=== PATIENT | female | born 1945 | race Caucasian/White ===

== ENCOUNTER 2020-05-29 20:43 | Inpatient (IN) | payer MEDICARE, SELFPAY ==
[2020-05-29 20:51] VITALS: BP 153/99; PULSE 100; RESP 20; O2SAT 97; BMI 31.3
--- NOTE | 2020-05-29 23:03 | CTR_ITS ---
PROCEDURE INFORMATION: Exam: CT Head Without Contrast Exam date and time: 05/29/2020 11:17 PM Age: 75 years old Clinical indication: Altered mental status/memory loss; Additional info: AMS TECHNIQUE: Imaging protocol: Computed tomography of the head without contrast. Radiation optimization: All CT scans at this facility use at least one of these dose optimization techniques: automated exposure control; mA and/or kV adjustment per patient size (includes targeted exams where dose is matched to clinical indication); or iterative reconstruction. COMPARISON: No relevant prior studies available. RADIATION DOSE METRICS: Total DLP (mGy-cm): 2004.07 FINDINGS: Brain: Chronic left occipital infarct. No midline shift, mass, fluid collection, or evidence of acute hemorrhage. Cerebral ventricles: No ventriculomegaly. Bones/joints: Unremarkable. No acute fracture. Paranasal sinuses: Visualized sinuses are unremarkable. No fluid levels. Mastoid air cells: Visualized mastoid air cells are well aerated. Soft tissues: Unremarkable. CT/CT head wo con* [id number] IMPRESSION: Chronic left occipital infarct. Radiation Dose CTDIVOL = (mGy): DLP = 2004.07 (mGy-cm)
--- NOTE | 2020-05-29 23:03 | XR_ITS ---
WS: [id number] RIGHT HIP HISTORY: pain COMPARISON: CT 05/30/2020 pelvis. Right hip: No fracture is identified. Severe loss of the normal joint space with osteophytic ridging. Subchondral cystic changes and sclerosis along both sides of the joint line. Hypertrophic bone forma tion at the greater trochanter. No fracture identified. Mild SI joint narrowing. XR/XR hip RT 2-3V wo/w pel* [id number] IMPRESSION: 1. No RIGHT hip fracture identified. Pelvis CT performed on the same day was a lso reviewed and no fracture is evident by CT of the pelvis. If concern for hip fracture persists consider dedicated RIGHT hip CT. 2. Severe RIGHT hip joint osteoarthritis.
--- NOTE | 2020-05-29 23:03 | XR_ITS ---
WS: [id number] PORTABLE CHEST HISTORY: ams COMPARISON: None available. Scattered mild pulmonary opacifications throughout both lungs probably due to small amount of fluid o verload. No pleural effusion or pneumothorax. Cardiac size: Mildly enlarged cardiac silhouette. Mediastinum/Aorta: Mild atherosclerosis aorta. No osseous abnormality seen. XR/XR chest 1V portable [id number] IMPRESSION: Mild interstitial edema and fluid overload.
--- NOTE | 2020-05-29 23:04 | ECG_ITS ---
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
--- NOTE | 2020-05-29 23:26 | CTR_ITS ---
PROCEDURE INFORMATION: Exam: CT Abdomen And Pelvis With Contrast Exam date and time: 05/29/2020 11:32 PM Age: 75 years old Clinical indication: Pain; Other: Hip; Additional info: Hip pain TECHNIQUE: Imaging protocol: Computed tomography of the abdomen and pelvis with contrast. Radiation optimization: All CT scans at this facility use at least one of these dose optimization techniques: automated exposure control; mA and/or kV adjustment per patient size (includes targeted exams where dose is matched to clinical indication); or iterative reconstruction. Contrast material: VISI 320; Contrast volume: 75 ml; Contrast route: INTRAVENOUS (IV); COMPARISON: CR XR hip RT 2-3V wo/w pel* [id number] 05/29/2020 11:13 PM RADIATION DOSE METRICS: Total DLP (mGy-cm): 1197.29 FINDINGS: Lungs: There is ill-defined opacity in the left lower lobe. Mediastinal space: There is a small sliding-type hiatal hernia. Liver: The liver is normal. Gallbladder and bile ducts: The gallbladder is absent. There is no intrahepatic or extrahepatic bile duct dilation. Pancreas: The pancreas is unremarkable. Spleen: The spleen is unremarkable. Adrenal glands: Intermediate density 15 mm left adrenal nodule. Kidneys and ureters: There is moderate atrophy of both kidneys. There is multifocal upper pole cortical scarring bilaterally. No hydronephrosis. Nonobstructive stone in the right renal collecting system. Ureters are normal. 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 The small bowel is nondilated. There is mild sigmoid colonic diverticulosis without evidence of diverticulitis. Appendix: The appendix is normal. Intraperitoneal space: There is no free air or significant intraperitoneal free fluid. Vasculature: There is moderate aortic atherosclerotic disease. The portal, splenic and superior mesenteric veins are patent. Lymph nodes: There is no lymphadenopathy in the retroperitoneum, mesentery, pelvis or inguinal regions. Urinary bladder: The urinary bladder is unremarkable. Reproductive: The uterus is unremarkable. There is no adnexal mass or large cyst. Bones/joints: There is severe degenerative disease at the right hip. Proximal femora are intact. The bony pelvis is intact. There is moderate degenerative disease in the lumbar spine. Soft tissues: The abdominal wall is intact. CT/CT abdomen pelvis w con* [id number] IMPRESSION: 1. No acute intra-abdominal findings. 2. Severe degenerative disease at the right hip. 3. Ill-defined opacity in the left lower lobe. Atelectasis versus infection. 4. 15 mm left adrenal nodule. Consider 12 month follow-up adrenal CT. (Dylan Brown, ACR White Paper, 2017) 5. Incidental findings above. Radiation Dose CTDIVOL = (mGy): DLP = 1197.29 (mGy-cm)
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
[2020-05-29 23:43] VITALS: RESP 16; O2SAT 92
[2020-05-29] MEDS: ondansetron 2 mg/ML SDV 2 mL 4 MG IVP (23:43)
[2020-05-29] MEDS: morphine 4 mg/mL SDV 1 mL IVP (23:43)
[2020-05-29] MEDS: LORazepam 2 mg/mL INJ 1 mL 1 MG IVP (23:43)
[2020-05-29 23:44] LABS: Basophils % 0.4 %; Eosinophils % 0.2 %; Hematocrit 45.6 % (37.0-47.0); Hemoglobin 15.1 g/dL (11.5-15.3); Lymphocytes % 21.2 %; Mean Corpuscular HGB Conc 33.1 g/dL (30.0-36.0); Mean Corpuscular Hemoglobin 29.7 pg (28.0-34.0); Mean Corpuscular Volume 89.6 fL (81-99); Mean Platelet Volume 13.1 fL (7.4-10.4); Monocytes # 0.6 10^3/uL (0.2-0.9); Monocytes % 12.3 %; Neutrophils # 3.04 10^3/uL (1.8-7.7); Neutrophils % 65.7 %; Nucleated Red Blood Cells % 0 %; Platelet Count 104 10^3/cmm (130-400); Red Blood Count 5.09 10^6/uL (4.1-5.3); Red Cell Distribution Width 12.6 % (12.1-15.1); White Blood Count 4.6 10^3/uL (4.0-10.0)
[2020-05-29] MEDS: sodium chloride 0.9% 1,000 ML 999 ML IV (23:45)
[2020-05-29 23:55] LABS: INR 1.04 (0.8-1.2)
[2020-05-30] VITALS (16 sets, daily range): BP systolic 99–166; BP diastolic 56–110; PULSE 70–110; RESP 16–26; TEMP 36.7–39; O2SAT 93–98
[2020-05-30] LABS: Alanine Aminotransferase 27 U/L (0-33); Albumin Level 3.8 g/dL (3.5-5.2); Alkaline Phosphatase 109 IU/L (35-105); Blood Urea Nitrogen 30 mg/dL (8-23); Calcium 9.5 mg/dL (8.5-10.5); Carbon Dioxide 23 mmol/L (22-29); Chloride 102 mmol/L (98-107); Globulin 3.4 g/dL (1.3-4.6); Glucose 259 mg/dL (65-115); Lipase 32 U/L (13-60); Osmolality Calculated 295 mOsm/kg (285-295); Sodium 135 mmol/L (136-145); Total Bilirubin 0.4 mg/dL (0.15-1.2); Total Protein 7.2 g/dL (6.6-8.7)
[2020-05-30 00:01] LABS: Anion Gap 14.8 (5-19); Aspartate Amino Transferase 29 U/L (0-32); Potassium 4.8 mmol/L (3.5-5.1)
[2020-05-30 00:16] LABS: Slide Review Slide Review Perform
[2020-05-30] MEDS: iodixanol 320 mg/mL 100mL Btl IV ×2 (00:41→00:47)
[2020-05-30] MEDS: LORazepam 2 mg/mL INJ 1 mL 1 MG IVP ×2 (00:41→02:41)
[2020-05-30 02:38] LABS: Add Urine Culture? Yes; Add Urine Microscopic? YES; Bacteria Urine 3+ /hpf; Bilirubin Urine Neg (Negative); Blood Urine 3+ (Negative); Glucose Urine UA 2+ (Normal); Ketones Urine Negative (Negative); Leukocyte Esterase Urine Trace (Negative); Nitrate Urine Negative (Negative); Protein Urine Trace (Negative); Specific Gravity, Urine 1.015 (1.005-1.030); Squamous Epithelial Cell Urine 0-4 /hpf (0-5); Urine Appearance Clear (CLEAR); Urine Color Yellow (Yellow); Urobilinogen Urine Norm (Negative); WBC Urine 25-40 /hpf (0-5); pH Urine 5 (5-7)
--- NOTE | 2020-05-30 03:12 | PM.HP ---
Providers/Chief Complaint Admitting Physician: Luciano Driscoll MD Chief Complaint: leg pain and anxiety History of Present Illness Farnaz Beverly is a 75 year old female who presented today with chief complaint of altered mental status. Her daughter checked on her around 3 PM today and she was normal at that time however at 7 PM she started behaving abnormally. She was aggressive, very irritable and confused. EMS was called, they did not notice any neurological deficits however patient kept refusing coming to the hospital she was very combative. When she arrived in the ER she was irritable and aggressive and kept complaining of hip pain. CT head showed occipital infarct however CT head and neck revealed right vertebral V1 occlusion, findings were discussed with neurologist at [facility] by ER physician he was not a TPA candidate because of timeline, she has abnormal UA she received Zosyn in the ER for UTI. At the time of my evaluation patient was not cooperative she kept crying stating she is hurting everywhere. Review of Systems General: Reports: ROS unobtainable due to medical condition (Hypoactive delirium due to UTI and possibly subacute stroke) PFSH Acute PFSH: Medical History (Updated 05/30/20 @ 03:36 by Luciano Driscoll MD) Arthritic gait Hip arthritis Diabetes Hypertension Surgical History (Updated 05/30/20 @ 03:36 by Luciano Driscoll MD) Surgical history unknown Family History (Updated 05/30/20 @ 03:36 by Luciano Driscoll MD) Other No pertinent family history Social History (Updated 05/30/20 @ 03:36 by Luciano Driscoll MD) Smoking and tobacco status: unknown if ever smoked Alcohol intake: never Substance/Drug Use: never Lives independently: Yes Vitals/I&O/Wt Last Vital Signs Pulse 110 H 05/30/20 02:22 Resp 18 05/30/20 02:22 BP 166/110 05/30/20 02:22 Pulse Ox 97 05/30/20 02:22 05/29/20 05/29/20 05/30/20 14:59 22:59 06:59 Intake Total 1000 / 1000 Balance 1000 / 1000 Weight last 48 hrs Weight 90.718 kg Physical Exam Narrative: EXAM NARRATIVE: elderly female who is irritable and aggressive She cries every time I ask her a question and states she hurts everywhere She keeps her eyes closed Did not cooperate for interview S1, S2 no murmur appreciated Clinically it is hard to assess her volume status because of obesity however no lower extremity edema noted Upper airway resonating to her her anterior chest bilateral breath sounds with rhonchi Abdomen distended, nontender Blake catheter draining concentrated urine Neuro exam limited, questionable left-sided facial droop, patient would not follow any commands to calculate NIH score Urinary Catheter Management^: Blake: Cath Placed During This Visit: yes Urinary Catheter Date of Insertion: 05/30/20 Data : 05/29/20 23:40 05/29/20 23:40 A&P Assessment and plan (1) Altered mental status: Status: Acute Qualifiers: Altered mental status type: unspecified Qualified Code(s): R41.82 - Altered mental status, unspecified (2) Acute cystitis: Status: Acute (3) Occipital stroke: Status: Acute Additional A&P Information Altered mental status Secondary to cystitis and subacute stroke CT head showing occipital stroke and CTA head and neck consistent with right vertebral V1 occlusion Not a TPA candidate, not a candidate for intravascular intervention as well because of the timeline NIH difficult to calculate because of noncooperative state of the patient I will start her on aspirin and Plavix along atorvastatin Currently reevaluate in the morning if MRI head is possible however at this point it seems a bit difficult because of her hyperactive delirium Hyperactive delirium due to UTI Abnormal UA continue ceftriaxone She received Zosyn in the ER Urine culture obtained No sepsis on admission, For agitation with use Haldol for as needed use Hypertension: Blood pressure 166/100 I would resume her hydrochlorothiazide and lisinopril and monitor blood pressure Type 2 diabetes: Hold Metformin keep her on insulin sliding scale Consistent carb diet Full code DVT prophylaxis Lovenox Attestations Medical Necessity Statement*: Anticipating discharge in less than 48 hours currently need cranial imaging/MRI for occipital stroke and antibiotics for UTI Time Spent in Patient Care: (>than 50% of time spent in counselling and/or direct pt care on unit). 30mins Coding Level of Care Code Acute Gang Mower Operator for Javierg Fwd Diagnoses Altered mental status R41.82 Altered mental status type: unspecified Acute cystitis N30.00 Occipital stroke I63.9
[2020-05-30] MEDS: cefTRIAXone 1,000 MG in sodium chloride 0.9% (plus) 50 ML 100 MG IV (03:18)
--- NOTE | 2020-05-30 04:18 | PC.NURSE ---
safety and occupational health manager requested due to pt attempting to pull at IV line and indwelling rashid catheter
[2020-05-30] MEDS: aspirin 300 mg Supp PR (04:26)
[2020-05-30] MEDS: enoxaparin 40 mg/0.4 mL Syringe SUBCUT (05:48)
[2020-05-30 06:35] LABS: Glucose Point of Care 260 mg/dL (70-110)
[2020-05-30] MEDS: aspirin 81 mg EC Tablet PO (08:17)
[2020-05-30] MEDS: clopidogrel 75 mg Tablet PO (08:17)
[2020-05-30] MEDS: hydroCHLOROthiazide 25 mg Tablet 12.5 MG PO (08:17)
[2020-05-30] MEDS: metoprolol tartrate 25 mg Tablet PO ×2 (08:17→21:35)
[2020-05-30] MEDS: lisinopril 10 mg Tablet PO (08:17)
--- NOTE | 2020-05-30 10:33 | PC.PHAR ---
-pt unable to verify medication-pts granddaughter eddie states the pt takes care of her own meds-pt brought in all medication bottles except for oxycodone 10mg 1 tab q4h prn ext med history shows last filled on 04/30/20 30d/s
[2020-05-30 11:23] LABS: Glucose Point of Care 217 mg/dL (70-110)
--- NOTE | 2020-05-30 13:44 | PC.CHAP ---
Pastoral Care Encounter/Spiritual Assessment Type of Contact [] Declined health care sanitary technician visit [] Patient/Family/Request visit [] Outpatient visit [] Follow-up visit [] Physician referral [] Code/Alert [] Routine visit [] Staff referral [] Actively dying [xx] Patient sleeping [] Family support [] [] Out of room [] Palliative care [] [] Receiving care in room [] Pre-surgical visit [] Trauma [] Long length of stay [] ICU visit [xx] Other: Patient sedated Relational/Emotional Strength [] Patient feels connected with others/family/visitors/staff [] Distress [] Loneliness/isolation [] Abandonment Spirituality of Patient [] Person of [place] [] Attends Pentecostalism of their [place] [] Believes in Prayer [] Reads Bible or Jewish materials [] There are Spiritual issues to be addressed Controls Project Engineer Interventions [] Prayer [] Active listening [] Non-anxious presence [] Spiritual/emotional support [] Crisis/trauma care [] Spiritual counseling [] Bereavement support [] Provided bereavement packet [] Provided Bible/devotional materials [] Provided toy/stuffed animal, coloring book to patient or family member [] Provided Communion [] Anointing/[place] [] Salvation [] Completed spiritual assessment [] Other: Impact on Illness or Injury [] Angry [] Fearful [] Anxious [] Often cries [] Exhaustion [] Unable to work [] Unable to attend episcopal [] Unable to walk/stand [] Unable to read [] Unable to drive [] Unable to eat/drink [] Unable to sleep [] Unable to be with family [] Patient intubated [] Other: Summary Patient was being constantly monitored. Prognosis unclear at time of visit. Follow up later. Time spent with patient 2 minutes
[2020-05-30] MEDS: morphine 4 mg/mL SDV 1 mL 2 MG IVP ×2 (15:08→22:31)
--- NOTE | 2020-05-30 16:40 | PM.PN ---
Subjective Subjective: Interval history: 75 year old with past medical history of hypertension, diabetes, neuropathy, arthritis with chronic back pain who presented to the ER with altered mental status. Upon arrival to ER patients initial work up showed a WBC of 4.6, hemoglobin of 15.1, hematocrit of 45.6 and a platelet count of 104. Sodium 135, potassium 4.8, chloride 102, bicarb 23, BUN 30 and creatinine of 1.3. Glucose was elevated 217. AST of 29, ALT of 27 and alkaline phosphatase of 109. Urinalysis showed trace leukocyte esterase, negative nitrites, 25 to 40 wbc's and 3+ bacteria. Multiple imaging studies included a chest x-ray which showed mild interstitial edema with fluid overload. Head CT without contrast showed chronic left occipital infarct. 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 Widely patent carotid arteries. CT abd/pelvis also done which showed no acute intra-abdominal findings however ill defined opacities in the left lower lobe suspicious for atelectasis vs infection. Hip/pelvic X-ray showed no right hip fracture, however severe right hip joint osteoarthritis. Vitals showed a temp of 102.2 on arrival. She was suspected to have a urinary tract infection plus minus pneumonia which was less likely. She was given 1L bolus, Aspirin 325mg PO x1, Ceftriaxone 1gIV x1, Lorazepam 1 mg IV x 2, morphine 4mg IV x1, Dilaudid 1 mg IV x1 and hydralazine 5 mg IV x1. Since admission patient has been confused at times wanting to get out of beds. For the most part has been sleepy however does wake up and complain of back pain. She was given morphine however stated this did not help wanting her oxycodone. Knows she is in a hospital however does not remember how she arrived or why. Baseline mental status is unclear. Medications: Reviewed: Yes Vitals/I&O/Wt Last Vital Signs Temp 100.6 F H 05/30/20 15:25 Pulse 84 05/30/20 15:25 Resp 18 05/30/20 15:25 BP 126/78 05/30/20 15:25 Pulse Ox 94 05/30/20 15:25 05/30/20 05/30/20 05/30/20 06:59 14:59 22:59 Intake Total 1050 / 1050 Balance 1050 / 1050 Weight last 48 hrs Weight 90.718 kg Physical Exam Narrative: EXAM NARRATIVE: elderly female who is irritable and aggressive Confused. oriented to person only bedside sitter S1, S2 no murmur appreciated Non-labored respiration Abdomen - ND/NT Blake catheter in place Neuro exam - difficult to asses s Urinary Catheter Management^: Blake: Cath Placed During This Visit: yes Reason for Continuing Indwelling Catheter: Other Urinary Catheter Date of Insertion: 05/30/20 Data : 05/29/20 23:40 05/29/20 23:40 Micro: Microbiology 05/30/20 07:28 Blood Culture - Preliminary Blood SPECIMEN COLLECTED 05/30/20 07:22 Blood Culture - Preliminary Blood SPECIMEN COLLECTED A&P Assessment and plan (1) Altered mental status: Status: Acute Qualifiers: Altered mental status type: unspecified Qualified Code(s): R41.82 - Altered mental status, unspecified (2) Acute cystitis: Status: Acute (3) Occipital stroke: Status: Acute Additional A&P Information Acute Encephalopathy - Baseline mental status unclear - Likely infectious - No clear evidence of cva, no complaint of visual deficits - Continue Neuro-checks however - Bed-side sitter - Fall precautions - Aspiration precautions Sepsis due to UTI possible pneuonia - Rocephin - increase to 2G IV daily - Follow up on culture - Tylenol prn for fever - Pro-usha in am Acute kidney injury - Cr - 1.3 - Baseline known - Renal dosing - Repeat BMP in am Chronic occipital infarct - Less likely acute - Wlll continue aspirin/statin - Also started on plavix - Unclear if failed asa - not noted on home meds - ECHO pending - CT head/CTA completed - Neuro-checks - ST/PT/OT eval Hypertension - Stable on current regimen DM - Sliding scale insulin - Check A1c Chronic back pain / opiods use - Oxycodone resumed - Try to avoid oversedation DVT prophylaxis Lovenox Attestations Medical Necessity Statement*: Will require further hospitalization for management of altered mental status, sepsis, UTI. Coding Level of Care Code Acute Food And Beverage Coordinator for Carmen Fwd Diagnoses Altered mental status R41.82 Altered mental status type: unspecified Acute cystitis N30.00 Occipital stroke I63.9
[2020-05-30] MEDS: oxyCODONE 5 mg IR Tab/Cap 10 MG PO ×2 (17:25→21:34)
[2020-05-30] MEDS: famotidine 20 mg Tablet PO (17:25)
[2020-05-30 17:36] LABS: Glucose Point of Care 313 mg/dL (70-110)
--- NOTE | 2020-05-30 18:21 | PC.NURSE ---
Patient had Oxycodone in her purse, along with all other home meds in a bag. All home meds taken the the med room Oxycodone was counted with Timbo Gamino RN and put in the pyxis.
[2020-05-30 20:24] LABS: Glucose Point of Care 205 mg/dL (70-110)
[2020-05-30] MEDS: atorvastatin 40 mg Tablet PO (21:35)
[2020-05-31] VITALS (13 sets, daily range): BP systolic 109–142; BP diastolic 67–84; PULSE 78–99; RESP 16–20; TEMP 37.1–38.5; O2SAT 90–96
[2020-05-31] MEDS: cefTRIAXone 1,000 MG in sodium chloride 0.9% (plus) 50 ML 100 MG IV (02:07)
[2020-05-31] MEDS: oxyCODONE 5 mg IR Tab/Cap 10 MG PO ×3 (02:09→20:21)
[2020-05-31] MEDS: enoxaparin 40 mg/0.4 mL Syringe SUBCUT (04:04)
[2020-05-31 06:23] LABS: Basophils % 0.3 %; Eosinophils % 0.3 %; Hematocrit 41.1 % (37.0-47.0); Hemoglobin 13.5 g/dL (11.5-15.3); Lymphocytes # 1.7 10^3/uL (0.8-4.8); Lymphocytes % 46.9 %; Mean Corpuscular HGB Conc 32.8 g/dL (30.0-36.0); Mean Corpuscular Hemoglobin 29.7 pg (28.0-34.0); Mean Corpuscular Volume 90.5 fL (81-99); Mean Platelet Volume 13.1 fL (7.4-10.4); Monocytes # 0.3 10^3/uL (0.2-0.9); Monocytes % 8.9 %; Neutrophils # 1.56 10^3/uL (1.8-7.7); Neutrophils % 43.3 %; Nucleated Red Blood Cells % 0 %; Platelet Count 91 10^3/cmm (130-400); Red Blood Count 4.54 10^6/uL (4.1-5.3); Red Cell Distribution Width 12.7 % (12.1-15.1); White Blood Count 3.6 10^3/uL (4.0-10.0)
[2020-05-31 06:39] LABS: Glucose Point of Care 152 mg/dL (70-110)
[2020-05-31 07:48] LABS: Procalcitonin 0.55 ng/mL (0-0.5)
[2020-05-31 07:59] LABS: Alanine Aminotransferase 20 U/L (0-33); Alkaline Phosphatase 80 IU/L (35-105); Anion Gap 15.2 (5-19); Aspartate Amino Transferase 29 U/L (0-32); Blood Urea Nitrogen 29 mg/dL (8-23); Calcium 8.6 mg/dL (8.5-10.5); Carbon Dioxide 22 mmol/L (22-29); Chloride 104 mmol/L (98-107); Globulin 2.7 g/dL (1.3-4.6); Glucose 145 mg/dL (65-115); Magnesium 1.9 mg/dL (1.7-2.3); Osmolality Calculated 292 mOsm/kg (285-295); Potassium 4.2 mmol/L (3.5-5.1); Sodium 137 mmol/L (136-145); Total Bilirubin 0.4 mg/dL (0.15-1.2); Total Protein 5.7 g/dL (6.6-8.7)
[2020-05-31 08:58] LABS: Slide Review Slide Review Perform
[2020-05-31 09:41] LABS: Estmated Average Glucose 166; Hemoglobin A1C 7.4 % (4.0-6.0)
[2020-05-31] MEDS: morphine 4 mg/mL SDV 1 mL 2 MG IVP ×2 (09:51→14:09)
[2020-05-31] MEDS: clopidogrel 75 mg Tablet PO (09:56)
[2020-05-31] MEDS: hydroCHLOROthiazide 25 mg Tablet 12.5 MG PO (09:57)
[2020-05-31] MEDS: aspirin 81 mg EC Tablet PO (09:57)
[2020-05-31] MEDS: lisinopril 10 mg Tablet PO (09:57)
[2020-05-31] MEDS: famotidine 20 mg Tablet PO ×2 (09:57→19:49)
[2020-05-31] MEDS: metoprolol tartrate 25 mg Tablet PO ×2 (09:57→20:22)
--- NOTE | 2020-05-31 10:46 | PC.PT ---
PT eval attempted. Patient unable to actively participate at this time. Screams with movement. Will monitor and attempt tomorrow.
[2020-05-31 10:57] LABS: Glucose Point of Care 182 mg/dL (70-110)
[2020-05-31] MEDS: acetaminophen 325 mg Tablet 650 MG PO (14:06)
--- NOTE | 2020-05-31 16:00 | PM.PN ---
Subjective Subjective: Interval history: 75 year old with past medical history of hypertension, diabetes, neuropathy, arthritis with chronic back pain who presented to the ER with altered mental status. Upon arrival to ER patients initial work up showed a WBC of 4.6, hemoglobin of 15.1, hematocrit of 45.6 and a platelet count of 104. Sodium 135, potassium 4.8, chloride 102, bicarb 23, BUN 30 and creatinine of 1.3. Glucose was elevated 217. AST of 29, ALT of 27 and alkaline phosphatase of 109. Urinalysis showed trace leukocyte esterase, negative nitrites, 25 to 40 wbc's and 3+ bacteria. Multiple imaging studies included a chest x-ray which showed mild interstitial edema with fluid overload. Head CT without contrast showed chronic left occipital infarct. 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 Widely patent carotid arteries. CT abd/pelvis also done which showed no acute intra-abdominal findings however ill defined opacities in the left lower lobe suspicious for atelectasis vs infection. Hip/pelvic X-ray showed no right hip fracture, however severe right hip joint osteoarthritis. Vitals showed a temp of 102.2 on arrival. She was suspected to have a urinary tract infection plus minus pneumonia which was less likely. She was given 1L bolus, Aspirin 325mg PO x1, Ceftriaxone 1gIV x1, Lorazepam 1 mg IV x 2, morphine 4mg IV x1, Dilaudid 1 mg IV x1 and hydralazine 5 mg IV x1. Since admission patient has been confused at times wanting to get out of beds. For the most part has been sleepy however does wake up and complain of back pain. She was given morphine however stated this did not help wanting her oxycodone. Knows she is in a hospital however does not remember how she arrived or why. Baseline mental status is unclear. 05/31/2020 Continues to be very confused and agitated. Complaining of back pain. Continues to have fevers. Medications: Reviewed: Yes Vitals/I&O/Wt Last Vital Signs Temp 99.4 F 05/31/20 15:26 Pulse 99 05/31/20 15:26 Resp 18 05/31/20 15:26 BP 109/67 05/31/20 15:26 Pulse Ox 92 05/31/20 15:26 05/31/20 05/31/20 05/31/20 06:59 14:59 22:59 Intake Total 550 / 790 Output Total 1000 / 1000 500 / 500 Balance -450 / -210 -500 / -500 Weight last 48 hrs Weight 90.718 kg Physical Exam Narrative: EXAM NARRATIVE: elderly female who is irritable and aggressive Confused. oriented to person only bedside sitter S1, S2 no murmur appreciated Non-labored respiration Abdomen - ND/NT Blake catheter in place Neuro exam - difficult to asses s Urinary Catheter Management^: Blake: Cath Placed During This Visit: yes Reason for Continuing Indwelling Catheter: Acute Urinary Retention or Obstruction Urinary Catheter Date of Insertion: 05/30/20 Data : 05/31/20 05:49 05/31/20 05:54 Micro: Microbiology 05/30/20 02:00 Urine Culture - Preliminary Urine,Clean Catch Gram Negative Rods 05/30/20 07:28 Blood Culture - Preliminary Blood NEGATIVE TO DATE 05/30/20 07:22 Blood Culture - Preliminary Blood NEGATIVE TO DATE A&P Assessment and plan (1) Altered mental status: Status: Acute Qualifiers: Altered mental status type: unspecified Qualified Code(s): R41.82 - Altered mental status, unspecified (2) Acute cystitis: Status: Acute (3) Occipital stroke: Status: Acute Additional A&P Information Acute Encephalopathy - Baseline mental status unclear - Likely infectious - No clear evidence of cva, no complaint of visual deficits - Continue Neuro-checks however - Bed-side sitter - Fall precautions - Aspiration precautions Sepsis due to UTI possible pneumonia - Persistent Fever Tmax 101 - Will broaden coverage - Vancomycin/Zosyn added - Follow up on culture - Ecoli in UA - Based on lung findngs - will r/o covid- check ag - Droplet precautions unitl r/o - Tylenol prn for fever - Pro-usha -0.59 Acute kidney injury - Cr - 1.3 - 1.3 - Baseline known - Renal dosing - Repeat BMP in am Chronic occipital infarct - Less likely acute - Wlll continue aspirin/statin - Also started on plavix - Unclear if failed asa - not noted on home meds - ECHO pending - CT head/CTA completed - Neuro-checks - ST/PT/OT eval Hypertension - Stable on current regimen DM - Sliding scale insulin - Check A1c Chronic back pain / opiods use - Oxycodone resumed - Try to avoid oversedation DVT prophylaxis Lovenox Attestations Medical Necessity Statement*: Continue hospitalization for management of infection requiring IV antibiotics Time Spent in Patient Care: Greater than 35 minutes (>than 50% of time spent in counselling and/or direct pt care on unit). Coding Level of Care Code Acute Insurance Policy Issue Clerk for Carmen Spicer Diagnoses Altered mental status R41.82 Altered mental status type: unspecified Acute cystitis N30.00 Occipital stroke I63.9
[2020-05-31] MEDS: vancomycin 1,500 MG/300 ML PIGGYBACK 200 MG IV (16:57)
[2020-05-31 17:05] LABS: Glucose Point of Care 186 mg/dL (70-110)
[2020-05-31 18:24] LABS: SARS Covid-2 Antigen Positive (Negative)
[2020-05-31] MEDS: piperacillin-tazobactam 3.375 GM in sodium chloride 0.9% (plus) 50 ML IV (19:48)
--- NOTE | 2020-05-31 20:12 | PC.NURSE ---
Called pt's granddaughter, Lupe, to notify her that pt is covid positive. Information regarding quarantine given and understanding verbalized.
[2020-05-31] MEDS: atorvastatin 40 mg Tablet PO (20:22)
[2020-05-31 20:35] LABS: Glucose Point of Care 191 mg/dL (70-110)
[2020-06-01] VITALS (9 sets, daily range): BP systolic 110–139; BP diastolic 68–82; PULSE 79–110; RESP 18; TEMP 36.3–37.3; O2SAT 91–94
[2020-06-01] MEDS: piperacillin-tazobactam 3.375 GM in sodium chloride 0.9% (plus) 50 ML IV ×3 (01:23→17:49)
[2020-06-01] MEDS: enoxaparin 40 mg/0.4 mL Syringe SUBCUT (04:57)
[2020-06-01 06:24] LABS: Glucose Point of Care 229 mg/dL (70-110)
[2020-06-01 06:55] LABS: Basophils % 0.3 %; Eosinophils % 0.3 %; Hematocrit 41.7 % (37.0-47.0); Hemoglobin 13.7 g/dL (11.5-15.3); Lymphocytes # 1.4 10^3/uL (0.8-4.8); Mean Corpuscular HGB Conc 32.9 g/dL (30.0-36.0); Mean Corpuscular Hemoglobin 29.2 pg (28.0-34.0); Mean Corpuscular Volume 88.9 fL (81-99); Mean Platelet Volume 13.5 fL (7.4-10.4); Monocytes # 0.4 10^3/uL (0.2-0.9); Monocytes % 10.4 %; Neutrophils # 1.73 10^3/uL (1.8-7.7); Nucleated Red Blood Cells % 0 %; Platelet Count 89 10^3/cmm (130-400); Red Blood Count 4.69 10^6/uL (4.1-5.3); Red Cell Distribution Width 12.8 % (12.1-15.1); White Blood Count 3.5 10^3/uL (4.0-10.0)
--- NOTE | 2020-06-01 07:00 | XRR_ITS ---
PROCEDURE INFORMATION: Exam: XR Chest Exam date and time: 06/01/2020 7:32 AM Age: 75 years old Clinical indication: Shortness of breath; Additional info: Respiratory failure TECHNIQUE: Imaging protocol: XR of the chest. Views: 1 view. COMPARISON: CR XR chest 1V portable [id number] 05/29/2020 11:13 PM FINDINGS: Lungs: There is patchy consolidation in the mid and inferior left lung. The right lung is clear. Pleural spaces: There is a small left pleural effusion. No pneumothorax. Heart/Mediastinum: Unremarkable. No cardiomegaly. Bones/joints: Unremarkable. XR/XR chest 1V portable [id number] IMPRESSION: There is a small left pleural effusion. There is patchy consolidation in the mid and inferior left lung consistent with atelectasis and/or pneumonia.
[2020-06-01 07:07] LABS: D Dimer 1.26 ug/mIFEU (0-0.59)
[2020-06-01 07:12] LABS: Lactate (Lactic Acid level) 1.4 mmol/L (0.5-2.2)
[2020-06-01 07:37] LABS: Alanine Aminotransferase 22 U/L (0-33); Albumin Level 3.1 g/dL (3.5-5.2); Alkaline Phosphatase 84 IU/L (35-105); Aspartate Amino Transferase 32 U/L (0-32); Blood Urea Nitrogen 31 mg/dL (8-23); C Reactive Protein 79.4 mg/L (0.0-4.9); Calcium 8.9 mg/dL (8.5-10.5); Carbon Dioxide 20 mmol/L (22-29); Chloride 102 mmol/L (98-107); Globulin 3.1 g/dL (1.3-4.6); Glucose 199 mg/dL (65-115); Magnesium 1.9 mg/dL (1.7-2.3); Osmolality Calculated 292 mOsm/kg (285-295); Sodium 135 mmol/L (136-145); Total Bilirubin 0.7 mg/dL (0.15-1.2); Total Protein 6.2 g/dL (6.6-8.7)
[2020-06-01 08:16] LABS: Ferritin 780 ng/mL (15-150)
[2020-06-01] MEDS: hydroCHLOROthiazide 25 mg Tablet 12.5 MG PO (08:33)
[2020-06-01] MEDS: famotidine 20 mg Tablet PO ×2 (08:34→17:50)
[2020-06-01] MEDS: metoprolol tartrate 25 mg Tablet PO ×2 (08:34→21:34)
[2020-06-01] MEDS: clopidogrel 75 mg Tablet PO (08:34)
[2020-06-01] MEDS: aspirin 81 mg EC Tablet PO (08:35)
[2020-06-01] MEDS: lisinopril 10 mg Tablet PO (08:35)
[2020-06-01 11:04] LABS: Glucose Point of Care 264 mg/dL (70-110)
[2020-06-01] MEDS: oxyCODONE 5 mg IR Tab/Cap 10 MG PO (11:05)
--- NOTE | 2020-06-01 13:50 | PM.PN ---
Subjective Subjective: Interval history: 75 year old with past medical history of hypertension, diabetes, neuropathy, arthritis with chronic back pain who presented to the ER with altered mental status. Upon arrival to ER patients initial work up showed a WBC of 4.6, hemoglobin of 15.1, hematocrit of 45.6 and a platelet count of 104. Sodium 135, potassium 4.8, chloride 102, bicarb 23, BUN 30 and creatinine of 1.3. Glucose was elevated 217. AST of 29, ALT of 27 and alkaline phosphatase of 109. Urinalysis showed trace leukocyte esterase, negative nitrites, 25 to 40 wbc's and 3+ bacteria. Multiple imaging studies included a chest x-ray which showed mild interstitial edema with fluid overload. Head CT without contrast showed chronic left occipital infarct. 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 Widely patent carotid arteries. CT abd/pelvis also done which showed no acute intra-abdominal findings however ill defined opacities in the left lower lobe suspicious for atelectasis vs infection. Hip/pelvic X-ray showed no right hip fracture, however severe right hip joint osteoarthritis. Vitals showed a temp of 102.2 on arrival. She was suspected to have a urinary tract infection plus minus pneumonia which was less likely. She was given 1L bolus, Aspirin 325mg PO x1, Ceftriaxone 1gIV x1, Lorazepam 1 mg IV x 2, morphine 4mg IV x1, Dilaudid 1 mg IV x1 and hydralazine 5 mg IV x1. Since admission patient has been confused at times wanting to get out of beds. For the most part has been sleepy however does wake up and complain of back pain. She was given morphine however stated this did not help wanting her oxycodone. Knows she is in a hospital however does not remember how she arrived or why. Baseline mental status is unclear. 05/31/2020 Continues to be very confused and agitated. Complaining of back pain. Continues to have fevers. 06/01/2020 Patient was more alert and active today however still very confused sitting in chair. No respiratory distress. Not requiring oxygen. Medications: Reviewed: Yes Vitals/I&O/Wt Last Vital Signs Temp 98.6 F 06/01/20 11:28 Pulse 106 H 06/01/20 11:28 Resp 18 06/01/20 11:28 BP 139/82 06/01/20 11:28 Pulse Ox 91 06/01/20 11:28 05/31/20 06/01/20 06/01/20 22:59 06:59 14:59 Intake Total 50 / 50 590 / 590 Output Total 400 / 900 Balance -350 / -850 590 / 590 Physical Exam Narrative: EXAM NARRATIVE: elderly female who is irritable and aggressive Confused. oriented to person only bedside sitter S1, S2 no murmur appreciated Non-labored respiration Abdomen - ND/NT Blake catheter in place Neuro exam - difficult to asses s Urinary Catheter Management^: Blake: Cath Placed During This Visit: yes Reason for Continuing Indwelling Catheter: Acute Urinary Retention or Obstruction Urinary Catheter Date of Insertion: 05/30/20 Data : 06/01/20 06:38 06/01/20 06:38 Micro: Microbiology 05/30/20 02:00 Urine Culture - Final Urine,Clean Catch Escherichia coli A&P Assessment and plan (1) Altered mental status: Status: Acute Qualifiers: Altered mental status type: unspecified Qualified Code(s): R41.82 - Altered mental status, unspecified (2) Acute cystitis: Status: Acute (3) Occipital stroke: Status: Acute (4) COVID-19 virus infection: Status: Acute Additional A&P Information Acute Encephalopathy - Baseline mental status unclear - Likely infectious - COVID - No clear evidence of acute cva, no complaint of visual deficits - Negin chronic occipital infarct - Continue Neuro-checks however - Fall precautions - Aspiration precautions - PT/OT/St on board. Sepsis due to COVID-19 infection plus UTI - Intermittent fevers. - Vancomycin/Zosyn added 05/31 - Urine culture - Ecoli in UA - Blood culture x2 - NGTD - COVID19 ag positive - No hypoxia noted - held remdesivir/decadron - Droplet precautions - Tylenol prn for fever - Pro-usha -0.59 - 0.55 - 0.50 - Ferritin 780 , CRP 79 - D-dimer 1.26- Will change ac to eliquis hold on CTA due to renal failure Thrombocytopenia - 104 - > 89 - Possible sepsis related - hold lovenox - on Eliquis - monitor for bleeding - Will use lower dose of eliquis Acute kidney injury - Cr - 1.3 - 1.3 - 1.4 - Baseline known - Renal dosing - Repeat BMP in am Chronic occipital infarct - Less likely acute - ASA/plavix - will hold - due to worsening plt - Unclear if failed asa - not noted on home meds - ECHO pending - CT head/CTA completed - Neuro-checks - Lipid panel - statin - ST/PT/OT eval Hypertension - Stable on current regimen DM - Sliding scale insulin - Diabetic diet. Chronic back pain / opiods use - Oxycodone resumed - Try to avoid oversedation DVT prophylaxis - SCDs- eliquis Attestations Medical Necessity Statement*: require further hospitalization for management of COVID-19 infection, sepsis and altered mental status Time Spent in Patient Care: Greater than 35 minutes (>than 50% of time spent in counselling and/or direct pt care on unit). Coding Level of Care Code Acute Partition Making Machine Operator for Carmen Spicer Diagnoses Altered mental status R41.82 Altered mental status type: unspecified Acute cystitis N30.00 Occipital stroke I63.9 COVID-19 virus infection U07.1
[2020-06-01] MEDS: vancomycin 1,500 MG/300 ML PIGGYBACK 200 MG IV (16:07)
--- NOTE | 2020-06-01 16:44 | PC.NURSE ---
pt rfused vitals
[2020-06-01 16:46] LABS: Glucose Point of Care 262 mg/dL (70-110)
[2020-06-01] MEDS: apixaban 5 mg Tablet 2.5 MG PO (21:34)
[2020-06-01] MEDS: atorvastatin 40 mg Tablet PO (21:35)
[2020-06-01 21:49] LABS: Glucose Point of Care 318 mg/dL (70-110)
[2020-06-02] VITALS (13 sets, daily range): BP systolic 105–131; BP diastolic 68–88; PULSE 71–105; RESP 17–24; TEMP 36.5–38; O2SAT 90–97
[2020-06-02] MEDS: piperacillin-tazobactam 3.375 GM in sodium chloride 0.9% (plus) 50 ML IV ×3 (01:26→17:44)
[2020-06-02 07:02] LABS: Glucose Point of Care 252 mg/dL (70-110)
[2020-06-02 08:03] LABS: Basophils % 0.6 %; Hematocrit 39.8 % (37.0-47.0); Hemoglobin 13.2 g/dL (11.5-15.3); Lymphocytes # 1.2 10^3/uL (0.8-4.8); Lymphocytes % 33.9 %; Mean Corpuscular HGB Conc 33.2 g/dL (30.0-36.0); Mean Corpuscular Hemoglobin 29.6 pg (28.0-34.0); Mean Corpuscular Volume 89.2 fL (81-99); Mean Platelet Volume 13.8 fL (7.4-10.4); Monocytes # 0.4 10^3/uL (0.2-0.9); Monocytes % 11.6 %; Neutrophils # 1.85 10^3/uL (1.8-7.7); Neutrophils % 53.6 %; Nucleated Red Blood Cells % 0 %; Platelet Count 78 10^3/cmm (130-400); Red Blood Count 4.46 10^6/uL (4.1-5.3); Red Cell Distribution Width 12.6 % (12.1-15.1); White Blood Count 3.5 10^3/uL (4.0-10.0)
[2020-06-02 08:20] LABS: Alanine Aminotransferase 35 U/L (0-33); Albumin Level 2.9 g/dL (3.5-5.2); Alkaline Phosphatase 82 IU/L (35-105); Anion Gap 16.5 (5-19); Aspartate Amino Transferase 64 U/L (0-32); Blood Urea Nitrogen 47 mg/dL (8-23); Calcium 8.8 mg/dL (8.5-10.5); Carbon Dioxide 19 mmol/L (22-29); Chloride 106 mmol/L (98-107); Globulin 2.9 g/dL (1.3-4.6); Glucose 221 mg/dL (65-115); Osmolality Calculated 305 mOsm/kg (285-295); Potassium 3.5 mmol/L (3.5-5.1); Sodium 138 mmol/L (136-145); Total Bilirubin 0.7 mg/dL (0.15-1.2); Total Protein 5.8 g/dL (6.6-8.7)
[2020-06-02] MEDS: famotidine 20 mg Tablet PO ×2 (09:08→17:44)
[2020-06-02] MEDS: apixaban 5 mg Tablet 2.5 MG PO ×2 (09:09→20:10)
[2020-06-02] MEDS: metoprolol tartrate 25 mg Tablet PO ×2 (09:09→20:11)
--- NOTE | 2020-06-02 09:28 | PC.NURSE ---
updated patient's granddaughter on patient's condition.
[2020-06-02 10:35] LABS: Glucose Point of Care 278 mg/dL (70-110)
[2020-06-02] MEDS: oxyCODONE 5 mg IR Tab/Cap 10 MG PO ×2 (11:31→15:44)
--- NOTE | 2020-06-02 13:25 | DCPLANNER ---
Updated IM and then called Pt's Granddaughter with whom she lives - Lupe Gonzalez [phone]. Unfortunately was only able to leave a message. Invited her to phone back should she have any questions. Copy sent into the room via Nursing since pt is in isolation.
--- NOTE | 2020-06-02 14:07 | DCPLANNER ---
Lupe did call back and pattern chart writer was able to explain the IM to her. She didn't know about the opportunity and thanks pattern chart writer for calling her and explaining it. Endodontic Assistant tells her that a copy is in the room.
[2020-06-02] MEDS: vancomycin 1,500 MG/300 ML PIGGYBACK 200 MG IV (15:45)
[2020-06-02 16:12] LABS: Vancomycin Trough 15.5 ug/mL (10-15)
[2020-06-02 16:44] LABS: Glucose Point of Care 203 mg/dL (70-110)
[2020-06-02] MEDS: atorvastatin 40 mg Tablet PO (20:10)
--- NOTE | 2020-06-02 20:11 | PM.PN ---
Subjective Subjective: Interval history: She overall says she is doing all right, and not much is troubling her, however, at the same time asking her to do some basic repositioning in bed, or even moving around either arm appears to be causing some body aches, and it also takes her a while to recall who she lives with at home. She correctly states she is in the hospital, but cannot remember the year. She also states she has no appetite, and has not touched her dinner at all. Vitals/I&O/Wt Last Vital Signs Temp 99.0 F 06/02/20 19:07 Pulse 105 H 06/02/20 19:07 Resp 24 H 06/02/20 19:07 BP 131/84 06/02/20 19:07 Pulse Ox 92 06/02/20 19:07 06/02/20 06/02/20 06/02/20 06:59 14:59 22:59 Intake Total 50 / 1040 290 / 290 300 / 590 Output Total 200 / 900 600 / 600 Balance -150 / 140 290 / 290 -300 / -10 Physical Exam Const: COMMON NORMALS: no acute distress; negative for patient oriented x3 GENERAL APPEARANCE: frail appearing NUTRITIONAL APPEARANCE: obese ORIENTATION/CONSCIOUSNESS: Yes awake, Yes oriented to person and Yes oriented to place HENMT: COMMON NORMALS: oropharynx normal Neck/C-Spine: COMMON NORMALS: no JVD Resp: COMMON NORMALS: normal respiratory effort and clear to auscultation bilaterally AUSCULTATION: clear to auscultation bilaterally Cardio: COMMON NORMALS: no JVD, regular rhythm, S1 normal heart sound present, S2 normal heart sound present and No murmurs present (Cardio) RHYTHM: regular rhythm HEART SOUNDS: S1 normal heart sound present and S2 normal heart sound present GI: COMMON NORMALS: Normal to inspection, nondistended, normoactive bowel sounds present, Soft to palpation and non-tender PALPATION: Yes Soft to palpation Extremity: COMMON NORMALS: no joint enlargement and no pedal edema Neuro: COMMON NORMALS: negative for patient oriented x3 SENSORIUM/ORIENTATION: Yes oriented to person and Yes oriented to place OTHER: With some difficulty she perform some of the commands. She is here appears more trouble moving the left side, although per discussion with her granddaughter she has chronic weakness on the left. She has some trouble with [id number], and it takes her a good amount of effort to perform. She appears to track, but gives up easily. Denies diplopia. Skin: COMMON NORMALS: no rashes or lesions noted GENERAL SKIN EXAM: no rashes or lesions noted Urinary Catheter Management^: Blake: Cath Placed During This Visit: yes Reason for Continuing Indwelling Catheter: Other Urinary Catheter Date of Insertion: 05/30/20 Data : 06/02/20 07:09 06/02/20 07:09 A&P Assessment and plan (1) Altered mental status: She is oriented to place, and interacts, however, appears to have somewhat limited insight into what is going on, and does not remember the year. Takes her some time to remember who she lives with at home. But does state it correctly. She appears to put on a brave face stating that nothing is bothering her, but at the same time appears to have some malaise, occasional moans, aches, not energetic, trouble repositioning in bed. No appetite. Suspect moderate COVID-19 illness, with risk of severe disease. Discussed with her and her granddaughter regarding worsening liver parameters, worsening WBC and platelet counts. Continue treatment of possible superimposed bacterial infection. Continue to reorient. Mobilize with PT/OT. Status: Acute Qualifiers: Altered mental status type: unspecified Qualified Code(s): R41.82 - Altered mental status, unspecified (2) Acute cystitis: UTI, E. coli resistant to quinolones. Continue Zosyn. 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 Status: Acute (4) COVID-19 virus infection: At this time moderate infection. Continue to monitor as she is at risk for severe illness. For now monitor in the hospital. Status: Acute Additional A&P Information Sepsis due to COVID-19 infection plus UTI: As above. Continue antibiotics. Follow-up blood cultures. Thrombocytopenia: Discussed with her and her granddaughter. Monitor for continued decline as she may be at risk of bleeding. In case decreasing further hold low-dose Eliquis. Suspect bone marrow suppression secondary to COVID-19, sepsis. Acute kidney injury: Granddaughter reports history of trouble with kidneys. Kidney function appears to stabilized. Creatinine 1.4. Reassess. Hypertension: Close to goal. DM - Sliding scale insulin - Diabetic diet. Chronic back pain / opiods use - Oxycodone resumed - Try to avoid oversedation DVT prophylaxis - SCDs- eliquis Attestations Medical Necessity Statement*: Continue admission for assessment management of sepsis, moderate COVID-19 with risk of severe disease, UTI, acute encephalopathy, generalized weakness, monitoring of worsening leukopenia and thrombocytopenia. Coding Level of Care Code Acute Interior Block Wirer for [facility] Fwd Diagnoses Altered mental status R41.82 Altered mental status type: unspecified Acute cystitis N30.00 Occipital stroke I63.9 COVID-19 virus infection U07.1
[2020-06-02 21:07] LABS: Glucose Point of Care 188 mg/dL (70-110)
--- NOTE | 2020-06-02 22:52 | PC.NURSE ---
Patient is complaining her back hurts. Patient has been in bed all day, this nurse asked patient if she wanted to sit in chair for awhile. She refused. This nurse tried to turn patient since patient has wound on buttock and patient refused.
[2020-06-03] VITALS (12 sets, daily range): BP systolic 106–153; BP diastolic 69–84; PULSE 4–93; RESP 16–20; TEMP 36.3–37.6; O2SAT 85–93
[2020-06-03] MEDS: piperacillin-tazobactam 3.375 GM in sodium chloride 0.9% (plus) 50 ML IV ×3 (00:48→17:51)
[2020-06-03] MEDS: oxyCODONE 5 mg IR Tab/Cap 10 MG PO (00:51)
[2020-06-03] MEDS: acetaminophen 325 mg Tablet 650 MG PO ×3 (00:52→22:11)
[2020-06-03 05:38] LABS: Basophils % 0.4 %; Hematocrit 41.5 % (37.0-47.0); Hemoglobin 13.8 g/dL (11.5-15.3); Lymphocytes % 22.9 %; Mean Corpuscular HGB Conc 33.3 g/dL (30.0-36.0); Mean Corpuscular Hemoglobin 29.4 pg (28.0-34.0); Mean Corpuscular Volume 88.3 fL (81-99); Mean Platelet Volume 13.7 fL (7.4-10.4); Monocytes # 0.5 10^3/uL (0.2-0.9); Monocytes % 10.9 %; Neutrophils # 2.94 10^3/uL (1.8-7.7); Neutrophils % 65.4 %; Nucleated Red Blood Cells % 0 %; Platelet Count 90 10^3/cmm (130-400); Red Cell Distribution Width 12.5 % (12.1-15.1); White Blood Count 4.5 10^3/uL (4.0-10.0)
[2020-06-03 05:54] LABS: Alanine Aminotransferase 42 U/L (0-33); Albumin Level 2.9 g/dL (3.5-5.2); Alkaline Phosphatase 100 IU/L (35-105); Anion Gap 14.5 (5-19); Aspartate Amino Transferase 73 U/L (0-32); Blood Urea Nitrogen 46 mg/dL (8-23); C Reactive Protein 82.7 mg/L (0.0-4.9); Calcium 8.8 mg/dL (8.5-10.5); Carbon Dioxide 20 mmol/L (22-29); Chloride 105 mmol/L (98-107); Globulin 3.2 g/dL (1.3-4.6); Glucose 229 mg/dL (65-115); Osmolality Calculated 301 mOsm/kg (285-295); Potassium 3.5 mmol/L (3.5-5.1); Sodium 136 mmol/L (136-145); Total Protein 6.1 g/dL (6.6-8.7)
[2020-06-03 06:00] LABS: Slide Review Slide Review Perform
[2020-06-03 06:05] LABS: D Dimer 1.32 ug/mIFEU (0-0.59)
[2020-06-03 06:37] LABS: Glucose Point of Care 238 mg/dL (70-110)
[2020-06-03] MEDS: metoprolol tartrate 25 mg Tablet PO ×2 (08:17→21:24)
[2020-06-03] MEDS: apixaban 5 mg Tablet 2.5 MG PO ×2 (08:17→21:24)
[2020-06-03] MEDS: famotidine 20 mg Tablet PO ×2 (08:18→17:53)
[2020-06-03 10:35] LABS: Glucose Point of Care 305 mg/dL (70-110)
--- NOTE | 2020-06-03 12:02 | PC.NURSE ---
Attempted to call patient's granddaughter Lupe [phone], no answer.
--- NOTE | 2020-06-03 12:06 | PC.NURSE ---
Called patient's granddaughter Lupe [phone], to give update. she said she talked to
--- NOTE | 2020-06-03 13:49 | PC.NURSE ---
Notified Madonna RT that patient has home O2 eval.
[2020-06-03] MEDS: remdesivir 200 MG in sodium chloride 0.9% (100 ml) 100 ML 100 MG IV (15:17)
[2020-06-03] MEDS: dexamethasone 4 mg Tablet 6 MG PO (15:17)
[2020-06-03] MEDS: vancomycin 1,500 MG/300 ML PIGGYBACK 200 MG IV (16:38)
[2020-06-03 16:50] LABS: Glucose Point of Care 304 mg/dL (70-110)
--- NOTE | 2020-06-03 17:26 | P.PN_ITS ---
Subjective Subjective: Interval history: Today she is feeling rather emotional. Request to go home. With somewhat labile affect, crying, and stating that she just wants to go home. She is oriented to being in the hospital. She is not able to tell me the current year. She is able to tell me that she was having urinary infection, however, denies having COVID-19 infection, pneumonia, even though we had discussed about it yesterday. Is not able to list other additional conditions did we have been monitoring in the hospital including leukopenia, thrombocytopenia, liver parameter elevation, even though again we had just discussed about them yesterday. Discussing with her and her granddaughter, given she had not so far required oxygen, consideration was given to cautious discharge home where she may feel more comfortable, with continued monitoring by granddaughter who lives with her and takes care of her, and return to the hospital in case of any concerning symptoms. However, on home oxygen assessment he is noted to now require 4 L of oxygen by nasal cannula. Desaturating down to 86%, even just at rest on room air. Discussing again with her granddaughter, she would like her to stay in the hospital and continue care and receive treatment with remdesivir and Decadron given now she falls into the category of severe COVID-19. Medications: Reviewed: Yes Vitals/I&O/Wt Last Vital Signs Temp 97.5 F L 06/03/20 15:10 Pulse 91 06/03/20 15:10 Resp 18 06/03/20 15:10 BP 148/80 06/03/20 15:10 Pulse Ox 93 06/03/20 15:10 06/03/20 06/03/20 06/03/20 06:59 14:59 22:59 Intake Total 50 / 690 530 / 530 Output Total 600 / 1200 750 / 750 Balance -550 / -510 530 / 530 -750 / -220 Physical Exam Const: COMMON NORMALS: no acute distress; negative for patient oriented x3 GENERAL APPEARANCE: frail appearing NUTRITIONAL APPEARANCE: obese ORIENTATION/CONSCIOUSNESS: Yes awake, Yes oriented to person and Yes oriented to place OTHER: Labile affect. HENMT: COMMON NORMALS: oropharynx normal Neck/C-Spine: COMMON NORMALS: no JVD Resp: COMMON NORMALS: normal respiratory effort and clear to auscultation bilaterally AUSCULTATION: clear to auscultation bilaterally Cardio: COMMON NORMALS: no JVD, regular rhythm, S1 normal heart sound present, S2 normal heart sound present and No murmurs present (Cardio) RHYTHM: regular rhythm HEART SOUNDS: S1 normal heart sound present and S2 normal heart sound present GI: COMMON NORMALS: Normal to inspection, nondistended, normoactive bowel sounds present, Soft to palpation and non-tender PALPATION: Yes Soft to palpation Extremity: COMMON NORMALS: no joint enlargement and no pedal edema Neuro: COMMON NORMALS: negative for patient oriented x3 SENSORIUM/ORIENTATION: Yes oriented to person and Yes oriented to place OTHER: With some difficulty she perform some of the commands. She is here appears more trouble moving the left side, although per discussion with her granddaughter she has chronic weakness on the left. She has some trouble with [id number], and it takes her a good amount of effort to perform. She appears to track, but gives up easily. Denies diplopia. Skin: COMMON NORMALS: no rashes or lesions noted GENERAL SKIN EXAM: no rashes or lesions noted Urinary Catheter Management^: Blake: Cath Placed During This Visit: yes Reason for Continuing Indwelling Catheter: Other Urinary Catheter Date of Insertion: 05/30/20 Data : 06/03/20 05:23 06/03/20 05:23 A&P Assessment and plan (1) COVID-19 virus infection: Today on home oxygen evaluation noted to be saturating 86% on room air. Started on oxygen support, requiring 4 L to maintain saturation in the low 90s. Discussed with her granddaughter. Discussed with pharmacy. Start remdesivir, Decadron. Continue oxygen support. Monitor and continue to reassess condition daily. Status: Acute (2) Respiratory failure with hypoxia: As above. Status: Acute (3) Altered mental status: Multifactorial, secondary to urinary tract infection, COVID-19, now with severe COVID-19, and hypoxic respiratory failure. Possible superimposed bacterial pneumonia as well based on imaging, febrile illness. Fever last night 100.4 Fahrenheit. Continue Zosyn and vancomycin. Continue to treat underlying conditions. Reorient. Continue to reassess for improvement, readiness for discharge to home settings. Continue to reorient. Mobilize with PT/OT. Status: Acute Qualifiers: Altered mental status type: unspecified Qualified Code(s): R41.82 - Altered mental status, unspecified (4) Acute cystitis: UTI, E. coli resistant to quinolones. Continue Zosyn. 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 Status: Acute Additional A&P Information Sepsis due to COVID-19 infection plus UTI, possible superimposed bacterial pneumonia: As above. Continue antibiotics. Follow-up blood cultures. Thrombocytopenia: Appears to stabilized and showing some improvement currently. Discussed with her and her granddaughter. Monitor for continued decline as she may be at risk of bleeding. In case decreasing further hold low-dose Eliquis. Suspect bone marrow suppression secondary to COVID-19, sepsis. Acute kidney injury: Granddaughter reports history of trouble with kidneys. Kidney function appears to stabilized. Creatinine 1.3. Reassess. Hypertension: Close to goal. DM - Sliding scale insulin - Diabetic diet. Chronic back pain / opiods use - Oxycodone resumed - Try to avoid oversedation DVT prophylaxis - SCDs- eliquis Attestations Medical Necessity Statement*: Admission of over 2 midnights is needed for assessment management of worsening COVID-19 infection, currently severe COVID-19 with hypoxic respiratory failure, saturating 86% on room air, requiring 4 L of oxygen by nasal cannula to maintain saturation in the low 90s. Coding Level of Care Code Acute Healthcare Economics Consultant for [facility] Diagnoses COVID-19 virus infection U07.1 Respiratory failure with hypoxia J96.91 Altered mental status R41.82 Altered mental status type: unspecified Acute cystitis N30.00 Occipital stroke I63.9
[2020-06-03 20:40] LABS: Glucose Point of Care 355 mg/dL (70-110)
[2020-06-04] VITALS (10 sets, daily range): BP systolic 132–165; BP diastolic 83–95; PULSE 73–91; RESP 17–18; TEMP 36.3–37.1; O2SAT 89–93
[2020-06-04] MEDS: piperacillin-tazobactam 3.375 GM in sodium chloride 0.9% (plus) 50 ML IV ×3 (00:06→21:17)
[2020-06-04] MEDS: acetaminophen 325 mg Tablet 650 MG PO (04:37)
[2020-06-04 05:54] LABS: D Dimer 2.03 ug/mIFEU (0-0.59)
[2020-06-04 05:56] LABS: Hematocrit 40.9 % (37.0-47.0); Lymphocytes # 0.6 10^3/uL (0.8-4.8); Mean Corpuscular HGB Conc 34.2 g/dL (30.0-36.0); Mean Corpuscular Hemoglobin 29.6 pg (28.0-34.0); Mean Corpuscular Volume 86.5 fL (81-99); Mean Platelet Volume 13.4 fL (7.4-10.4); Monocytes # 0.3 10^3/uL (0.2-0.9); Monocytes % 9.8 %; Neutrophils # 2.23 10^3/uL (1.8-7.7); Neutrophils % 70.6 %; Nucleated Red Blood Cells % 0 %; Platelet Count 91 10^3/cmm (130-400); Red Blood Count 4.73 10^6/uL (4.1-5.3); Red Cell Distribution Width 12.3 % (12.1-15.1); White Blood Count 3.2 10^3/uL (4.0-10.0)
--- NOTE | 2020-06-04 06:00 | XR_ITS ---
WS: [id number] Portable AP upright chest, 06/04/2020 Clinical Data: Hypoxia Comparison: Portable chest, 06/01/2020. Findings: Bilateral patchy opacities have increased compared to the prior chest x-ray. The heart is s lightly enlarged. No nodules, masses or effusions are seen. No pneumothorax is seen. Monitor leads ar e on the chest wall. The patient has had a posterior cervical fusion. XR/XR chest 1V portable [id number] Impression: 1. Development of bilateral patchy opacities which may represent worsening pneu monia. 2. Mild cardiomegaly.
[2020-06-04 06:06] LABS: C Reactive Protein 92.5 mg/L (0.0-4.9)
[2020-06-04 06:07] LABS: Alanine Aminotransferase 41 U/L (0-33); Albumin Level 2.6 g/dL (3.5-5.2); Alkaline Phosphatase 110 IU/L (35-105); Anion Gap 16.5 (5-19); Aspartate Amino Transferase 51 U/L (0-32); Blood Urea Nitrogen 43 mg/dL (8-23); Calcium 8.8 mg/dL (8.5-10.5); Carbon Dioxide 18 mmol/L (22-29); Chloride 106 mmol/L (98-107); Globulin 3.4 g/dL (1.3-4.6); Glucose 279 mg/dL (65-115); Osmolality Calculated 305 mOsm/kg (285-295); Potassium 3.5 mmol/L (3.5-5.1); Sodium 137 mmol/L (136-145); Total Bilirubin 0.8 mg/dL (0.15-1.2)
[2020-06-04 06:20] LABS: Slide Review Slide Review Perform
[2020-06-04 06:33] LABS: Glucose Point of Care 299 mg/dL (70-110)
[2020-06-04 10:19] LABS: Glucose Point of Care 350 mg/dL (70-110)
[2020-06-04] MEDS: apixaban 5 mg Tablet 2.5 MG PO ×2 (10:50→21:16)
[2020-06-04] MEDS: metoprolol tartrate 25 mg Tablet PO ×2 (10:51→21:17)
[2020-06-04] MEDS: famotidine 20 mg Tablet PO ×2 (10:51→18:47)
[2020-06-04] MEDS: dexamethasone 4 mg Tablet 6 MG PO (10:51)
--- NOTE | 2020-06-04 11:36 | PC.SOCIAL ---
IMM Update Pg.2 of IMM updated and reviewed with patient's granddaughter over the phone, who verbalized understanding.
[2020-06-04] MEDS: vancomycin 1,500 MG/300 ML PIGGYBACK 200 MG IV (15:02)
[2020-06-04 16:22] LABS: Glucose Point of Care 376 mg/dL (70-110)
[2020-06-04 16:22] LABS: Glucose Point of Care 330 mg/dL (70-110)
--- NOTE | 2020-06-04 17:55 | PM.PN ---
Subjective Subjective: Interval history: Today she feels she is doing a bit better. Today she appears somewhat more energetic. She easily states she is in the hospital, but also names the year correctly is 2020. Is able to tell me that she is been treated here for urinary tract infection, and currently for pneumonia. Feels that currently her breathing is doing all right. Asks about returning home. We discussed again with her regarding worsening in her condition, and persistent need of oxygen. Seems she did not realize that her saturation was down as low as 89% despite 3-1/2 L of oxygen by nasal cannula. She states that she does not like food here in the hospital. Asked her to see if there is anything we could do to try to get her something she prefers, or if her family is able to could perhaps bring food from home. She states she normally just cooks herself. Would much rather just go home. However, we also discussed that there is worsening of pneumonia on imaging. We discussed that we are trying her best to make sure she is stable and returns home safely. We discussed risks of respiratory failure and possibly in case of progression of illness with discontinue treatment prematurely. She again seems to did not realize that this was a possibility, but acknowledges that would not want such an outcome. States well then treat me quickly, give me double dose of antibiotics . Discussed with her that unfortunately that not possible or safe. However, we will continue treatment of her pneumonia as best we can and continue to reevaluate for soon as possible safe discharge and she nodded in agreement. Discussed also with her granddaughter who is also agreeable with the plan. We discussed also both with patient and granddaughter regarding mixed results of improving liver parameters, worsening CRP, worsening D-dimer, slight improvement in platelets, slight worsening in WBC count. Vitals/I&O/Wt Last Vital Signs Temp 98.0 F 06/04/20 14:47 Pulse 80 06/04/20 14:47 Resp 18 06/04/20 14:47 BP 132/84 06/04/20 14:47 Pulse Ox 90 06/04/20 14:47 06/04/20 06/04/20 06/04/20 06:59 14:59 22:59 Intake Total 50 / 1150 410 / 410 Output Total 250 / 1500 Balance -200 / -350 410 / 410 Physical Exam Const: COMMON NORMALS: no acute distress; negative for patient oriented x3 GENERAL APPEARANCE: frail appearing NUTRITIONAL APPEARANCE: obese ORIENTATION/CONSCIOUSNESS: Yes awake, Yes oriented to person and Yes oriented to place OTHER: Labile affect but somewhat better today. HENMT: COMMON NORMALS: oropharynx normal Neck/C-Spine: COMMON NORMALS: no JVD Resp: COMMON NORMALS: normal respiratory effort and clear to auscultation bilaterally AUSCULTATION: clear to auscultation bilaterally Cardio: COMMON NORMALS: no JVD, regular rhythm, S1 normal heart sound present, S2 normal heart sound present and No murmurs present (Cardio) RHYTHM: regular rhythm HEART SOUNDS: S1 normal heart sound present and S2 normal heart sound present GI: COMMON NORMALS: Normal to inspection, nondistended, normoactive bowel sounds present, Soft to palpation and non-tender PALPATION: Yes Soft to palpation Extremity: COMMON NORMALS: no joint enlargement and no pedal edema Neuro: COMMON NORMALS: negative for patient oriented x3 SENSORIUM/ORIENTATION: Yes oriented to person and Yes oriented to place OTHER: Impression Albert with more energetic. More easily moving her arms, and performing slight repositioning in bed. Skin: COMMON NORMALS: no rashes or lesions noted GENERAL SKIN EXAM: no rashes or lesions noted Urinary Catheter Management^: Blake: Cath Placed During This Visit: yes Reason for Continuing Indwelling Catheter: Other Urinary Catheter Date of Insertion: 05/30/20 Data : 06/04/20 05:13 06/04/20 05:13 Micro: Microbiology 05/30/20 07:28 Blood Culture - Final Blood NO GROWTH AFTER 5 DAYS 05/30/20 07:22 Blood Culture - Final Blood NO GROWTH AFTER 5 DAYS A&P Assessment and plan (1) COVID-19 virus infection: Persistent hypoxia, some worsening CRP and D-dimer today, however, improvement in liver parameters. At this time continue treatment of severe COVID-19 pneumonia and superimposed bacterial pneumonia. Continue oxygen support. Continue to reassess for stabilization of her condition and earliest possible discharge as she would prefer to return home as soon as possible. Add incentive spirometer. Discussed with her granddaughter. Status: Acute (2) Respiratory failure with hypoxia: As above. Status: Acute (3) Altered mental status: Appears to be better today. She is oriented to place and year. Today more easily is able to tell me about urinary tract infection and pneumonia as her underlying conditions. Worsening yesterday appears may have been related to encephalopathy due to worsening hypoxia. Continue treatment of underlying conditions. Reorient. Continue to reassess for improvement, readiness for discharge to home settings. Mobilize with PT/OT. Status: Acute Qualifiers: Altered mental status type: unspecified Qualified Code(s): R41.82 - Altered mental status, unspecified (4) Acute cystitis: UTI, E. coli resistant to quinolones. Continue Zosyn. 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 Status: Acute Additional A&P Information Sepsis due to COVID-19 infection plus UTI, possible superimposed bacterial pneumonia: As above. Continue antibiotics. Follow-up blood cultures. Thrombocytopenia: Appears leveled off around 90,000. Monitor level. Discussed with her and her granddaughter. Monitor for continued decline as she may be at risk of bleeding. In case decreasing further hold low-dose Eliquis. Suspect bone marrow suppression secondary to COVID-19, sepsis. Acute kidney injury: Improving. Granddaughter reports history of trouble with kidneys. Hypertension: Close to goal. DM - Sliding scale insulin - Diabetic diet. Chronic back pain / opiods use - Oxycodone resumed - Try to avoid oversedation DVT prophylaxis - SCDs- eliquis Attestations Medical Necessity Statement*: Continue admission for assessment management of worsening/severe pneumonia, severe COVID-19, improving acute encephalopathy. Coding Level of Care Code Acute Endoscopy Technican for [facility] Diagnoses COVID-19 virus infection U07.1 Respiratory failure with hypoxia J96.91 Altered mental status R41.82 Altered mental status type: unspecified Acute cystitis N30.00 Occipital stroke I63.9
[2020-06-04] MEDS: remdesivir 100 MG in sodium chloride 0.9% (100 ml) 100 ML IV (18:46)
[2020-06-04 20:50] LABS: Glucose Point of Care 330 mg/dL (70-110)
[2020-06-05] VITALS (11 sets, daily range): BP systolic 146–181; BP diastolic 77–106; PULSE 68–94; RESP 20–45; TEMP 36.4–37.1; O2SAT 84–95
--- NOTE | 2020-06-05 03:00 | PC.NURSE ---
PATIENT STATUS: FROM THE START OF THE SHIFT THE PATIENT HAD REMOVED HER NASAL CANNULA SEVERAL TIMES. WITH EACH ASSESSMENT MADE BY THIS NURSE, THE DEPUTY BAILIFF, AND THE CHARGE NURSE THE PATIENT WOULD BE FOUND TO HAVE REMOVED HER OXYGEN AND HER SATURATIONS WOULD BE IN THE LOW 80'S. WITH EACH ASSESSMENT EDUCATION AND REINFORCEMENT OF THE NEED FOR THE OXYGEN WOULD BE PROVIDED. THE HOSPITALIST WAS THEN NOTIFIED AFTER MANY FAILED ATTEMPTS AT GETTING THE PATIENT TO COOPERATE. AT THIS TIME AN ORDER FOR A 1:1 SITTER AND BI-PAP WAS GIVEN. THE PATIENT WOULD NOT WEAR THE BI-PAP MASK EVEN WITH THE SITTER PRESENT. THE DECISION WAS THEN MADE TO GO BACK TO THE NASAL CANNULA. THE PATIENT HAS DONE BETTER WITH KEEPING NASAL CANNULA IN HER NOSE. THE PATIENT WAS THEN MOVED TO THE NEGATIVE PRESSURE ROOM IN THE PREPARATION FOR THE POSSIBILITY OF NEEDING HIGH FLOW OR BI-PAP. THE PATIENT CONTINUES TO MAINTAIN AN OXYGEN SATURATION IN THE MID 80'S.
[2020-06-05] MEDS: piperacillin-tazobactam 3.375 GM in sodium chloride 0.9% (plus) 50 ML IV ×3 (05:54→21:49)
[2020-06-05 06:29] LABS: Basophils % 0.3 %; Hemoglobin 16.5 g/dL (11.5-15.3); Lymphocytes # 1.3 10^3/uL (0.8-4.8); Lymphocytes % 11.5 %; Mean Corpuscular HGB Conc 33.7 g/dL (30.0-36.0); Mean Corpuscular Hemoglobin 29.6 pg (28.0-34.0); Mean Platelet Volume 13.1 fL (7.4-10.4); Monocytes # 0.9 10^3/uL (0.2-0.9); Monocytes % 7.8 %; Neutrophils # 8.95 10^3/uL (1.8-7.7); Neutrophils % 79.7 %; Nucleated Red Blood Cells % 0 %; Platelet Count 189 10^3/cmm (130-400); Red Blood Count 5.57 10^6/uL (4.1-5.3); Red Cell Distribution Width 12.6 % (12.1-15.1); White Blood Count 11.2 10^3/uL (4.0-10.0)
[2020-06-05 06:42] LABS: D Dimer 3.94 ug/mIFEU (0-0.59)
[2020-06-05 07:06] LABS: Alanine Aminotransferase 41 U/L (0-33); Albumin Level 3.4 g/dL (3.5-5.2); Alkaline Phosphatase 155 IU/L (35-105); Blood Urea Nitrogen 42 mg/dL (8-23); Calcium 9.7 mg/dL (8.5-10.5); Carbon Dioxide 14 mmol/L (22-29); Chloride 108 mmol/L (98-107); Globulin 3.1 g/dL (1.3-4.6); Glucose 322 mg/dL (65-115); Osmolality Calculated 313 mOsm/kg (285-295); Sodium 140 mmol/L (136-145); Total Bilirubin 0.9 mg/dL (0.15-1.2); Total Protein 6.5 g/dL (6.6-8.7)
[2020-06-05 07:11] LABS: Anion Gap 22.2 (5-19); Aspartate Amino Transferase 41 U/L (0-32); Potassium 4.2 mmol/L (3.5-5.1)
[2020-06-05 07:17] LABS: C Reactive Protein 50.8 mg/L (0.0-4.9)
--- NOTE | 2020-06-05 07:41 | PC.NURSE ---
PATIENT UPDATE: AT APPROXIMATELY 0540 THE REQUESTED TO USE TO BEDSIDE COMMODE. STAFF EXPRESSED TO THE PATIENT THAT SHE WOULD NEED TO USE THE BEDPAN BECAUSE OF HER LOW OXYGEN LEVEL BEING LOW. SHE REFUSED TO DO SO, SO THIS NURSE AND THE PARALEGAL SUPERVISOR ASSISTED THE PATIENT TO THE BEDSIDE COMMODE. THE PATIENT TOLERATED WELL. WHEN FINISHED THE PATIENT WAS ASSISTED TO THE BED. WHEN REPOSITIONED, THE OXYGEN LEVEL WAS CHECKED. AT THIS TIME, APPROXIMATELY 0600, THE O2 SATS WERE 75-77%. THIS NURSE COUNTED RESPIRATIONS AND THEY WERE 70 PER MINUTE. THIS CALLED OUT TO THE CHARGE NURSE TO GET A OXY MASK TO ASSIST WITH RECOVERING THE PATIENT'S OXYGEN LEVEL. WHILE WAITING THIS NURSE INCREASED HER OXYGEN TO 6 LITERS FROM [address] ONCE O[address]MASK IN PL[address], OXYGEN GRADUALLY INCREASED TO 6 LITERS, THE PATIENT CONTINUED TO FIGHT WITH STAFF AND TAKE MASK OFF. O2 SATS MAINTAINED 78-80%. WITH THIS AFTER A COUPLE OF MINUTES, THE OXYGEN WAS INCREASED AGAIN TO 8 LITERS. OXYGEN SATS AT THIS TIME WERE 80-82%. THIS NURSE THEN INCREASED OXYGEN TO 10 LITERS AND RESPIRATORY WAS CONTACTED. RESPIRATORY WAS THEN IN ROOM FOR EVALUATION. AT THIS TIME THIS NURSE CONTACTED THE PHYSICIAN. UPDATED PHYSICIAN ON PATIENT STATUS. VERBAL ORDERS TO HAVE RESPIRATORY TO PROVIDE HEATED HIGH FLOW NASAL CANNULA. THIS NURSE NOTIFIED RESPIRATORY. THE PATIENT CONTINUED TO FIGHT WITH STAFF AND KEEPING MASK AND HH ON. THE PATIENT MAINTAINED OXYGEN LEVELS OF 84-88% BEFORE PATIENT CARE WAS TRANSFERRED TO NEXT SHIFT NURSE.
[2020-06-05] MEDS: enoxaparin 40 mg/0.4 mL Syringe SUBCUT (08:45)
[2020-06-05] MEDS: metoprolol tartrate 25 mg Tablet PO ×2 (08:48→21:48)
[2020-06-05] MEDS: dexamethasone 4 mg Tablet 6 MG PO (08:48)
[2020-06-05] MEDS: famotidine 20 mg Tablet PO ×3 (08:49→18:42)
[2020-06-05] MEDS: acetaminophen 325 mg Tablet 650 MG PO (11:58)
[2020-06-05 12:00] LABS: Glucose Point of Care 340 mg/dL (70-110)
[2020-06-05 12:00] LABS: Glucose Point of Care 327 mg/dL (70-110)
--- NOTE | 2020-06-05 15:16 | PM.PN ---
Subjective Subjective: Interval history: Overnight oxygenation worsened. Requiring high flow cannula. This morning confused, taking off and not keeping a cannula on. Oxygenation dropping down into the 70s. Subsequently placed on oxygen mask, one-to-one sitter had been provided. Reoriented. Reassured. Appears to be tolerating oxygen somewhat better. Again asking about going home. Today appears more confused, earlier asking to nurse about being transferred back to the [facility] and [place] (she was moved to a negative pressure room). To me states the year is 201, then corrects to 200,001. Denies pain. Denies headache. Reports had a small amount of diarrhea. No nausea or vomiting. No chest pain. Discussed with her granddaughter. Discussed consideration of possible need of use of antipsychotic in case of additional agitation not keeping oxygen on, or restlessness, trying get out of bed. Discussed risks and benefits including arrhythmia, including increased mortality in elderly patients. Vitals/I&O/Wt Last Vital Signs Temp 98.2 F 06/05/20 11:32 Pulse 85 06/05/20 14:26 Resp 30 H 06/05/20 11:32 BP 168/95 06/05/20 11:32 Pulse Ox 92 06/05/20 14:26 06/05/20 06/05/20 06/05/20 06:59 14:59 22:59 Intake Total 50 / 1100 290 / 290 Output Total 250 / 1150 750 / 750 Balance -200 / -50 -460 / -460 Physical Exam Const: COMMON NORMALS: no acute distress and alert; negative for patient oriented x3 GENERAL APPEARANCE: frail appearing NUTRITIONAL APPEARANCE: obese ORIENTATION/CONSCIOUSNESS: Yes awake and Yes confused HENMT: COMMON NORMALS: oropharynx normal Neck/C-Spine: COMMON NORMALS: no JVD Resp: COMMON NORMALS: normal respiratory effort and clear to auscultation bilaterally AUSCULTATION: clear to auscultation bilaterally Cardio: COMMON NORMALS: no JVD, regular rhythm, S1 normal heart sound present, S2 normal heart sound present and No murmurs present (Cardio) RHYTHM: regular rhythm HEART SOUNDS: S1 normal heart sound present and S2 normal heart sound present GI: COMMON NORMALS: Normal to inspection, nondistended, normoactive bowel sounds present, Soft to palpation and non-tender PALPATION: Yes Soft to palpation Extremity: COMMON NORMALS: no joint enlargement and no pedal edema Neuro: COMMON NORMALS: negative for patient oriented x3 SENSORIUM/ORIENTATION: Yes alert Skin: COMMON NORMALS: no rashes or lesions noted GENERAL SKIN EXAM: no rashes or lesions noted Urinary Catheter Management^: Blake: Cath Placed During This Visit: yes Reason for Continuing Indwelling Catheter: Other Urinary Catheter Date of Insertion: 05/30/20 Data : 06/05/20 06:15 06/05/20 06:15 A&P Assessment and plan (1) COVID-19 virus infection: Worsening of hypoxic respiratory failure, severe COVID-19, requiring high flow cannula, but not tolerating, taking no, desaturating, restless, agitated. One-to-one sitter obtained. Reoriented. Reassured. She had settled down and is tolerating and doing much better with oxygen mask currently, saturation in the low to mid 90s. Continue Decadron, remdesivir. Continue antibiotics for bacterial pneumonia. CRP does appear to have decreased today, with further decrease in liver parameters. Cell counts improving in terms of WBC and platelets. D-dimer is somewhat worse. Given she is remdesivir, steroids, at this time switch away from Eliquis to Lovenox to ensure her little bit more predictable metabolism. I-S if will participate. Not a candidate for proning. Discussed with her granddaughter who is agreeable with plan. Discussed with nursing staff, in case of any further difficulties maintaining oxygenation she is to transfer to ICU. Status: Acute (2) Respiratory failure with hypoxia: As above. Status: Acute (3) Altered mental status: Worse today. One-to-one sitter. Reorient. Reassure. And psychotic if needed, so far avoided. Discussed with her granddaughter was agreeable in case necessary understanding the risks. Continue treatment of underlying conditions. Status: Acute Qualifiers: Altered mental status type: unspecified Qualified Code(s): R41.82 - Altered mental status, unspecified (4) Acute cystitis: UTI, E. coli resistant to quinolones. Continue Zosyn. 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 Status: Acute Additional A&P Information Sepsis due to COVID-19 infection plus UTI, possible superimposed bacterial pneumonia: As above. Continue antibiotics. Follow-up blood cultures. Thrombocytopenia: Improving. Acute kidney injury: Improving. Granddaughter reports history of trouble with kidneys. Hypertension: Close to goal. DM - Sliding scale insulin - Diabetic diet. Chronic back pain / opiods use - Oxycodone resumed - Try to avoid oversedation DVT prophylaxis - SCDs- eliquis Attestations Medical Necessity Statement*: Continue admission for assessment of management of severe COVID-19 pneumonia with hypoxic respiratory failure, superimposed bacterial pneumonia, acute encephalopathy. Coding Level of Care Code Acute Outreach Coordinator for [facility] Diagnoses COVID-19 virus infection U07.1 Respiratory failure with hypoxia J96.91 Altered mental status R41.82 Altered mental status type: unspecified Acute cystitis N30.00 Occipital stroke I63.9
[2020-06-05 16:39] LABS: Vancomycin Trough 12.9 ug/mL (10-15)
[2020-06-05 17:09] LABS: Glucose Point of Care 331 mg/dL (70-110)
[2020-06-05] MEDS: vancomycin 1,500 MG/300 ML PIGGYBACK 200 MG IV (18:43)
[2020-06-05] MEDS: remdesivir 100 MG in sodium chloride 0.9% (100 ml) 100 ML IV (20:49)
[2020-06-05 21:11] LABS: Glucose Point of Care 329 mg/dL (70-110)
[2020-06-06] VITALS (71 sets, daily range): BP systolic 97–173; BP diastolic 57–106; PULSE 47–125; RESP 23–55; TEMP 36.5–37.2; O2SAT 84–99
[2020-06-06] MEDS: LORazepam 2 mg/mL INJ 1 mL 0.5 MG IVP ×2 (00:36→20:44)
[2020-06-06] MEDS: OLANZapine 10 mg VIAL (03:23)
[2020-06-06] MEDS: water for injection-sterile 10 ML 2.1 ML (03:44)
[2020-06-06 05:37] LABS: ABG PCO2 27.1 mmHg (35-45); ABG PH Result 7.43 (7.35-7.45); Alveolar-Arterial Oxygen Gradi 52.9 mmHg (5-10); Arterial Blood Gas Hematocrit 48.3 % (37-47); Base Excess ABG -4.9 mmol/L (-2.0-2.0); Blood Gas Allen Test Pos; Blood Gas Operator Identificat HARKR; Blood Gas Sample Site Radial, right; Blood Gas Sample Type Arterial; Carboxyhemoglobin < 0.0 %THgb (0.4-20.1); HCO3 ABG 17.8 mmol/L (22-26); HGB O2 Sat 97.1 % (95-100); Ionized Calcium Level - ABG 1.4 mmol/L (1.1-1.4); Methemoglobin 0.6 % (0.4-1.5); Oxygen Device BIPAP; Oxygen Saturation ABG 97.4; Potassium Level - ABG 4.4 mmol/L (3.5-5.0); Total Hemoglobin 15.7 g/dL (12-16)
[2020-06-06 05:53] LABS: Glucose Point of Care 228 mg/dL (70-110)
[2020-06-06] MEDS: piperacillin-tazobactam 3.375 GM in sodium chloride 0.9% (plus) 50 ML IV (05:59)
[2020-06-06 06:04] LABS: Basophils % 0.2 %; Hematocrit 47.5 % (37.0-47.0); Hemoglobin 15.9 g/dL (11.5-15.3); Lymphocytes # 1.3 10^3/uL (0.8-4.8); Mean Corpuscular HGB Conc 33.5 g/dL (30.0-36.0); Mean Corpuscular Hemoglobin 28.7 pg (28.0-34.0); Mean Corpuscular Volume 85.7 fL (81-99); Mean Platelet Volume 12.6 fL (7.4-10.4); Monocytes # 0.7 10^3/uL (0.2-0.9); Monocytes % 5.5 %; Neutrophils # 10.74 10^3/uL (1.8-7.7); Neutrophils % 83.5 %; Nucleated Red Blood Cells % 0 %; Platelet Count 190 10^3/cmm (130-400); Red Blood Count 5.54 10^6/uL (4.1-5.3); Red Cell Distribution Width 12.5 % (12.1-15.1); White Blood Count 12.9 10^3/uL (4.0-10.0)
[2020-06-06 06:27] LABS: Alanine Aminotransferase 37 U/L (0-33); Albumin Level 3.3 g/dL (3.5-5.2); Alkaline Phosphatase 182 IU/L (35-105); Anion Gap 17.8 (5-19); Aspartate Amino Transferase 34 U/L (0-32); Blood Urea Nitrogen 44 mg/dL (8-23); C Reactive Protein 35.3 mg/L (0.0-4.9); Calcium 9.9 mg/dL (8.5-10.5); Carbon Dioxide 21 mmol/L (22-29); Chloride 109 mmol/L (98-107); Globulin 3.8 g/dL (1.3-4.6); Glucose 246 mg/dL (65-115); Osmolality Calculated 317 mOsm/kg (285-295); Potassium 3.8 mmol/L (3.5-5.1); Sodium 144 mmol/L (136-145); Total Protein 7.1 g/dL (6.6-8.7)
[2020-06-06 06:53] LABS: Slide Review Slide Review Perform
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
[2020-06-06 07:29] LABS: Glucose Point of Care 265 mg/dL (70-110)
--- NOTE | 2020-06-06 08:00 | PC.NURSE ---
recieved to icu 1 from 2nd floor severe respiratory distress noted agitated and pulling off bipap not able to follow any demands color dusky and resp rate 48. On covid precautions at this time . Dr aware of status IM zyprexea given and called for precedex gtt
[2020-06-06] MEDS: OLANZapine 10 mg VIAL IM ×2 (08:18→08:27)
[2020-06-06] MEDS: water for injection-sterile 10 ML 2 ML ×2 (08:27→22:50)
[2020-06-06] MEDS: dexmedetomidine 400 MCG in sodium chloride 0.9% (100 ml) 100 ML IV ×2 (08:40→15:26)
--- NOTE | 2020-06-06 09:09 | USCV_ITS ---
Farnaz Beverly Age: 75 Gender: F : 1945 Exam Date: 06/06/2020 14:02 Ordering Phys: Curly Tenorio MD Technologist: Thea Shetty [place] [facility] [place]: HYPOXIA BP: 122 / 73 HR: 70 Rhythm: Sinus Technical Quality: Adequate MEASUREMENTS (Male / Female) Normal Values 2D ECHO LV Diastolic Diameter PLAX 4.7 cm 4.2 - 5.9 / 3.9 - 5.3 cm LV Systolic Diameter PLAX 2.2 cm LV Chamber Size 3.2 cm IVS Diastolic Thickness 1.0 cm 0.6 - 1.0 / 0.6 - 0.9 cm IVS Systolic Thickness 1.9 cm LVPW Diastolic Thickness 1.4 cm 0.6 - 1.0 / 0.6 - 0.9 cm LVPW Systolic Thickness 1.8 cm RV Chamber Size 2.5 cm LVOT Diameter 2.0 cm LV Ejection Fraction 2D Teich 84.6 % LV Ejection Fraction MOD 2C 68.5 % LV Ejection Fraction 2C AL 68.3 % LA Diameter 3.3 cm LA Width 3.3 cm LA Height 4.9 cm RA Width 3.0 cm RA Height 5.8 cm Aorta at Sinotubular Diameter 3.2 cm M-MODE LV Diastolic Diameter MM 3.8 cm 4.2 - 5.9 / 3.9 - 5.3 cm LV Systolic Diameter MM 2.6 cm LV Ejection Fraction MM Teich 60.9 % IVS Diastolic Thickness MM 1.5 cm 0.6 - 1.0 / 0.6 - 0.9 cm IVS Systolic Thickness MM 1.5 cm LVPW Diastolic Thickness MM 1.4 cm 0.6 - 1.0 / 0.6 - 0.9 cm LVPW Systolic Thickness MM 1.8 cm RV Diastolic Diameter MM 1.6 cm Aortic Annulus Diameter 3.7 cm LA Ao Ratio MM 1.0 MV E Point Septal Separation 0.4 cm DOPPLER AV Peak Velocity 136.0 cm/s LVOT Peak Velocity 72.3 cm/s AV Area Cont Eq vti 1.5 cm squared AV Area Cont Eq pk 1.7 cm squared MV Area PHT 3.3 cm squared MV E' Velocity 106.0 cm/s Mitral E to LV E' Septal Ratio 9.1 TR Peak Velocity 281.1 cm/s TR Peak Gradient 31.6 mmHg TR Mean Velocity 190.4 cm/s TR Mean Gradient 17.7 mmHg TR Velocity Time Integral 80.1 cm TV Peak E Velocity 73.0 cm/s Right Atrial Pressure 3.0 mmHg Pulmonary Artery Systolic Pressu 34.6 mmHg PV Peak Velocity 77.0 cm/s RV Acceleration Time 0.1 s RV Ejection Time 0.3 s RV AcT/ET 0.4 FINDINGS Left Ventricle Normal left ventricular size, systolic function and mildly increased wall thickness, with no regional wall motion abnormalities. Left ventricular ejection fraction is estimated at 65 %. Indeterminate diastolic function. Right Ventricle Normal right ventricular size and systolic function. Right ventricular systolic pressure 34.6 mmHg. Right Atrium Normal right atrial size. Left Atrium Normal left atrial size. Mitral Valve Moderate mitral annular calcification. Mildly thickened mitral valve. No mitral valve stenosis. Mild mitral valve regurgitation. Aortic Valve Thickened trileaflet aortic valve. No aortic valve stenosis. No aortic valve regurgitation. Tricuspid Valve Structurally normal tricuspid valve. No tricuspid valve stenosis. Mild tricuspid valve regurgitation. Pulmonic Valve Structurally normal pulmonic valve. No pulmonary valve stenosis. Pericardium No pericardial effusion. Prominent epicardial fat. Aorta Normal size aortic root and proximal ascending aorta. CONCLUSIONS 1. Normal left ventricular size, systolic function and mildly increased wall thickness, with no regional wall motion abnormalities. Left ventricular ejection fraction is estimated at 65 %. 2. Normal right ventricular size and systolic function. 3. Mild mitral and tricuspid valve regurgitation. 4. Pulmonary artery pressure estimated at 35 mm Hg. 5. No prior similar studies to compare. Coty Salcido MD (Electronically Signed) Final Date: 09 June 2020 21:19 S
--- NOTE | 2020-06-06 09:12 | PM.PN ---
Subjective Subjective: Interval history: Overnight with restlessness, not maintaining oxygen well. Was started on BiPAP. Received a dose of 10 mg Zyprexa. Confused. Vitals/I&O/Wt Last Vital Signs Temp 97.7 F 06/06/20 04:00 Pulse 97 06/06/20 07:55 Resp 26 H 06/06/20 04:00 BP 132/78 06/06/20 05:41 Pulse Ox 97 06/06/20 07:55 06/05/20 06/06/20 06/06/20 22:59 06:59 14:59 Intake Total 1030 / 1320 180 / 1500 Output Total 850 / 1600 Balance 1030 / 570 -670 / -100 Physical Exam Const: COMMON NORMALS: no acute distress; negative for patient oriented x3 GENERAL APPEARANCE: frail appearing ORIENTATION/CONSCIOUSNESS: Yes confused OTHER: Drowsy. Started on Precedex drip. Resting. No longer restless. Cooperating with BiPAP. HENMT: COMMON NORMALS: oropharynx normal Neck/C-Spine: COMMON NORMALS: no JVD Resp: COMMON NORMALS: normal respiratory effort and clear to auscultation bilaterally EFFORT & INSPECTION: Yes tachypneic AUSCULTATION: clear to auscultation bilaterally, no rhonchi and no wheezes Cardio: COMMON NORMALS: no JVD, regular rhythm, S1 normal heart sound present, S2 normal heart sound present and No murmurs present (Cardio) RHYTHM: regular rhythm HEART SOUNDS: S1 normal heart sound present and S2 normal heart sound present GI: COMMON NORMALS: Normal to inspection, nondistended, normoactive bowel sounds present, Soft to palpation and non-tender PALPATION: Yes Soft to palpation Extremity: COMMON NORMALS: no joint enlargement and no pedal edema Neuro: COMMON NORMALS: negative for patient oriented x3 Skin: COMMON NORMALS: no rashes or lesions noted GENERAL SKIN EXAM: no rashes or lesions noted Urinary Catheter Management^: Blake: Cath Placed During This Visit: yes Reason for Continuing Indwelling Catheter: Other Urinary Catheter Date of Insertion: 05/30/20 Data : 06/06/20 05:41 06/06/20 05:41 A&P Assessment and plan (1) COVID-19 virus infection: Moving to ICU, started BiPAP overnight, received Zyprexa. Currently started Precedex with good response. Appears calmer. Working with BiPAP. Tachypneic. But saturating in high 90s. Perhaps may even be able to decrease oxygen delivery. Discussed with shank threader. Appreciate consultation. We will obtain TTE. Change antibiotic regimen from Zosyn to Primaxin. Continue Decadron, remdesivir. Continue Lovenox. BiPAP support as needed and as tolerating. Precedex NPO CTA chest Discussed with her granddaughter who is agreeable with plan. Status: Acute (2) Respiratory failure with hypoxia: As above. Status: Acute (3) Altered mental status: Acute encephalopathy, delirium secondary to acute medical condition. Precedex. One-to-one sitter. Reorient. Reassure. Continue treatment of underlying conditions. Status: Acute Qualifiers: Altered mental status type: unspecified Qualified Code(s): R41.82 - Altered mental status, unspecified (4) Acute cystitis: Completed antibiotic course. 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 Change aspirin to suppository. Other oral medications on hold for now. Status: Acute Additional A&P Information Abdominal tenderness: Reported during examination by shank threader later this morning. Abdominal x-ray requested. Right upper quadrant ultrasound. Sepsis due to COVID-19 infection plus UTI, possible superimposed bacterial pneumonia: As above. Thrombocytopenia: Improved. Acute kidney injury: Improving. Granddaughter reports history of trouble with kidneys. Possible CKD. Hypertension: Close to goal. DM - Sliding scale insulin Chronic back pain / opiods use - Oxycodone resumed - Try to avoid oversedation DVT prophylaxis - SCDs- Lovenox Attestations Medical Necessity Statement*: Continue admission for assessment management of severe COVID-19, hypoxic respiratory failure, superimposed bacterial pneumonia, acute encephalopathy. Coding Level of Care Code Acute Suction Plate Roller Hand for [facility] Fwd Exam Comprehensive Diagnoses COVID-19 virus infection U07.1 Respiratory failure with hypoxia J96.91 Altered mental status R41.82 Altered mental status type: unspecified Acute cystitis N30.00 Occipital stroke I63.9
[2020-06-06] MEDS: famotidine 20 mg/2 mL INJ IVP ×2 (10:27→21:08)
[2020-06-06] MEDS: metoprolol tartrate 1 mg/1 mL SDV 5 mL 2.5 MG IV (10:27)
[2020-06-06] MEDS: aspirin 300 mg Supp PR (10:27)
--- NOTE | 2020-06-06 10:33 | XR_ITS ---
WS: [id number] KUB, AP view, 06/06/2020 Clinical Data: Abdominal tenderness Comparison: None. Findings: No abnormal intraabdominal masses or calcifications are seen. There is no dilatated small bowel or ev idence of obstruction. There are clips in the right upper quadrant from a cholecystectomy. 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 There is air in the stomach and colon. The patient's breathing and motion obscures detail. XR/XR abdomen 1V* [id number] Impression: Negative KUB with a notation that the patient's motion and breathing obscures d etail.
--- NOTE | 2020-06-06 10:34 | US_ITS ---
WS: [id number] Complete ABDOMINAL ULTRASOUND HISTORY: abdominal distension with tenderness COMPARISON: None available. Technically very limited evaluation of the abdomen due to body obesity. Liver: 15.9 cm in length. Mildly enlarged liver. Coarsened echotexture. Poor visualization. Pancreas: Poorly visualized. The body is negative. CBD: 0.5 cm. Right kidney: 9.9 cm x 5.0 cm x 6.2 cm. Mild cortical thinning. No hydronephrosis. Otherwise limited visualization. Left kidney: 9.2 cm x 7.0 cm x 6.4 cm. Mild diffuse cortical thinning. No obstruction. Very limited evaluation. Spleen: Not visualized well. Aorta is not visualized. No ascites. US/US abdomen complete* [id number] IMPRESSION: 1. Technically very limited evaluation of the abdominal structures due to body habitus. 2. Gallbladder not identified. History of prior cholecystectomy. 3. Mildly prominent liver.
[2020-06-06] MEDS: dexamethasone 4 mg/mL INJ 6 MG IV (11:13)
--- NOTE | 2020-06-06 11:34 | PM.CONSULT ---
Providers/Reason For Consult Consulting Physican/Specialty*: Dr. Roy Datar / Pulmonary Critical Care Reason for Consult*: AMS and acute hypoxic respiratory failure secondary to COVID-19 pneumonia and UTI Requesting Physcian: Curly Tenorio Attending Physician: Curly Tenorio History of Present Illness History of Present Illness Farnaz Beverly is a 75 year old female with PMH hypertension, diabetes, neuropathy, arthritis with chronic back pain presented to ER with altered mental status. Chest x-ray showed mild interstitial edema with fluid overload. Head CT without contrast showed chronic left occipital infarct. 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 Widely patent carotid arteries. CT abdomen pelvis showed no acute intra-abdominal findings on 05/30/2020 however ill-defined opacities in the left lower lobe suspicious for atelectasis versus infection. Rib/pelvic x-ray showed no right hip fracture however right hip joint arthritis. Upon arrival in ED patient has a temperature of 102.2, UA suspicious for UTI and patient was started on Rocephin. Patient was confused since admission and wants to get out of bed. Baseline mental status was unclear at that time. Initially she did not require O2 supplementation.Over the course of her hospitalization she gradually started desaturating and requiring high flow oxygen and her urine culture grew E. coli sensitive to Zosyn and COVID-19 antigen positive. Other labs significant for procalcitonin 0.55 on admission, thrombocytopenia, worsening LFTs, elevated CRP and D-dimer. Yesterday overnight patient was more restless and not maintaining saturation well so she was switched to BiPAP. Pulmonary/critical care consult requested for worsening hypoxic respiratory failure. Patient seen at bedside today morning -On BiPAP 16/8 FiO2 50% and Precedex 0.7 drip and is drowsy -She also received a dose of Zyprexa -Appeared tachypneic with a rate of 40-50 - ABG today morning on BiPAP 16/8 to 80% showed 7.4 05/17/126/17/97%-FiO2 gradually tapered down to 50% and patient is still maintaining saturation above 95% Review of Systems General: Reports: ROS unobtainable due to medical condition and ROS unobtainable due to mental status Meds/Allergies Home Medications and Allergies Home Medications Medication Instructions Recorded Confirmed Last Taken Type amlodipine 5 mg PO BEDTIME 05/30/20 05/30/20 Unknown History cephalexin 500 mg PO TID 05/30/20 05/30/20 Unknown History famotidine 20 mg PO BID 05/30/20 05/30/20 Unknown History gabapentin 300 mg PO TID 05/30/20 05/30/20 Unknown History glyburide 5 mg PO BID 05/30/20 05/30/20 Unknown History hydrochlorothiazide 25 mg PO DAILY 05/30/20 05/30/20 Unknown History lisinopril 10 mg PO DAILY 05/30/20 05/30/20 Unknown History metformin 1,000 mg PO BID 05/30/20 05/30/20 Unknown History metoprolol succinate 50 mg PO DAILY 05/30/20 05/30/20 Unknown History oxycodone 10 mg PO Q4H PRN #18 tab 06/03/20 Unknown Rx Allergies Allergy/AdvReac Type Severity Reaction Status Date / Time No Known Allergies Allergy Verified 05/30/20 16:37 Current Medications Current Medications Generic Name Dose Route Start Last Admin Trade Name Freq PRN Reason Stop Dose Admin Acetaminophen 650 mg 05/31/20 12:58 06/05/20 11:58 Acetaminophen 325 Mg Tablet PO 650 mg Q6H PRN Administration MILD PAIN Aspirin 81 mg 05/30/20 09:00 06/01/20 08:35 Aspirin 81 Mg Ec Tablet PO 81 mg DAILY MACK Administration Aspirin 300 mg 06/06/20 09:30 06/06/20 10:27 Aspirin 300 Mg Supp MD 300 mg DAILY MACK Administration Atorvastatin Calcium 40 mg 05/30/20 21:00 06/02/20 20:10 Atorvastatin 40 Mg Tablet PO 40 mg BEDTIME MACK Administration Clopidogrel Bisulfate 75 mg 05/30/20 09:00 06/01/20 08:34 Clopidogrel 75 Mg Tablet PO 75 mg DAILY MACK Administration Dexamethasone 6 mg 06/06/20 10:30 06/06/20 11:13 Dexamethasone 4 Mg/Ml Inj IV 6 mg DAILY MACK Administration Enoxaparin Sodium 40 mg 06/05/20 09:00 06/05/20 08:45 Enoxaparin 40 Mg/0.4 Ml Syringe SUBCUT 40 mg DAILY MACK Administration Famotidine 20 mg 06/06/20 09:45 06/06/20 10:27 Famotidine 20 Mg/2 Ml Inj IVP 20 mg Q12H MACK Administration Vancomycin/PEG/NADA/Lysine/Water 1,500 mg in 300 mls @ 200 mls/hr 05/31/20 15:45 06/05/20 20:37 Vancocin IV Infused Q24H MACK Infusion Remdesivir 100 mg/ Sodium 100 mls @ 100 mls/hr 06/04/20 18:00 06/05/20 21:58 Chloride IV 06/07/20 18:59 Infused Q24H MACK Infusion Dexmedetomidine HCl 400 mcg/ 104 mls @ 0 mls/hr 06/06/20 08:30 06/06/20 08:40 Sodium Chloride IV 0.2 mcg/kg/hr .Q0M MACK 4.7 mls/hr Administration Protocol Per Protocol Imipenem/Cilastatin Sodium 500 100 mls @ 200 mls/hr 06/06/20 09:30 06/06/20 10:27 mg/ Sodium Chloride IV 200 mls/hr Q8H MACK Administration Protocol Insulin Aspart 0 unit 05/30/20 08:00 06/06/20 08:18 Insulin Aspart 100 Unit/1 Ml SUBCUT 8 unit WM&BEDTIME MACK Administration Protocol Lisinopril 10 mg 05/30/20 09:00 06/01/20 08:35 Lisinopril 10 Mg Tablet PO 10 mg DAILY MACK Administration Lorazepam 0.5 mg 06/06/20 00:17 06/06/20 00:36 Lorazepam 2 Mg/Ml Inj 1 Ml IVP 0.5 mg Q12H PRN Administration ANXIETY Metoprolol Tartrate 25 mg 05/30/20 09:00 06/05/20 21:48 Metoprolol Tartrate 25 Mg Tablet PO 25 mg BID@0900,2100 MACK Administration Metoprolol Tartrate 2.5 mg 06/06/20 09:45 06/06/20 10:27 Metoprolol Tartrate 1 Mg/1 Ml Sdv 5 Ml IV 2.5 mg Q4H MACK Administration PFSH Acute PFSH: Medical History Arthritic gait Hip arthritis Diabetes Hypertension Surgical History Surgical history unknown Family History Other No pertinent family history Social History Smoking and tobacco status: unknown if ever smoked Alcohol intake: never Substance/Drug Use: never Lives independently: Yes Vitals/I&O/Wt Last Vital Signs Temp 97.7 F 06/06/20 04:00 Pulse 89 06/06/20 11:05 Resp 26 H 06/06/20 04:00 BP 132/78 06/06/20 05:41 Pulse Ox 94 06/06/20 11:05 06/05/20 06/06/20 06/06/20 22:59 06:59 14:59 Intake Total 1030 / 1320 180 / 1500 Output Total 850 / 1600 Balance 1030 / 570 -670 / -100 Physical Exam Narrative: EXAM NARRATIVE: PHYSICAL EXAM: General: lying in bed, sedated with Precedex, on BiPAP in moderate respiratory distress. HEENT:NCAT, PERRLA, EOMI Neck: Supple Lungs: Clear, decreased breath sounds on bilateral bases Heart: s1/s2, RRR Abd: soft, distended, generalized tenderness, BS + equivocal Extremities: No edema VP ANALYSIS: sedated and limited VP ANALYSIS exam possible. SKIN: no rash Urinary Catheter Management^: Blake: Cath Placed During This Visit: yes Reason for Continuing Indwelling Catheter: Other Urinary Catheter Date of Insertion: 05/30/20 Data Other Data: Other data: Laboratory Results WBC 12.9 10^3/uL (4.0 -10.0) H 06/06/20 05:41 RBC 5.54 10^6/uL (4.1 -5.3) H 06/06/20 05:41 Hgb 15.9 g/dL (11.5-1 5.3) H 06/06/20 05:41 Hct 47.5 % (37.0-47.0 ) H 06/06/20 05:41 MCV 85.7 fL (81-99) 06/06/20 05:41 MCH 28.7 pg (28.0-34. 0) 06/06/20 05:41 MCHC 33.5 g/dL (30.0-3 6.0) 06/06/20 05:41 RDW 12.5 % (12.1-15.1 ) 06/06/20 05:41 Plt Count 190 10^3/cmm (130 -400) 06/06/20 05:41 MPV 12.6 fL (7.4-10.4 ) H 06/06/20 05:41 Neut % (Auto) 83.5 % 06/06/20 05:41 Lymph % (Auto) 10.0 % 06/06/20 05:41 Brule % (Auto) 5.5 % 06/06/20 05:41 Eos % (Auto) 0.0 % 06/06/20 05:41 Baso % (Auto) 0.2 % 06/06/20 05:41 Neut # (Auto) 10.74 10^3/uL (1. 8-7.7) H 06/06/20 05:41 Lymph # (Auto) 1.3 10^3/uL (0.8- 4.8) 06/06/20 05:41 Brule # (Auto) 0.7 10^3/uL (0.2- 0.9) 06/06/20 05:41 Eos # (Auto) 0.0 10^3/uL (0.0- 0.8) 06/06/20 05:41 Baso # (Auto) 0.0 10^3/uL (0.0- 0.1) 06/06/20 05:41 Nucleated RBC % (a uto) 0 % 06/06/20 05:41 Nucleated RBCs # 0.0 /100WBC 06/06/20 05:41 PT 13.90 SECONDS (12 .1-14.9) 05/29/20 23:40 INR 1.04 (0.8-1.2) 05/29/20 23:40 D-Dimer 6.20 ug/mIFEU (0- 0.59) H 06/06/20 05:41 Specimen Type Arterial 06/06/20 05:35 Sample Site Radial, right 06/06/20 05:35 ABG pH 7.43 (7.35-7.45) 06/06/20 05:35 ABG pCO2 27.1 mmHg (35-45) L 06/06/20 05:35 ABG pO2 126.0 mmHg (80.0- 100.0) H 06/06/20 05:35 ABG HCO3 17.8 mmol/L (22-2 6) L 06/06/20 05:35 ABG O2 Saturation 97.4 06/06/20 05:35 ABG Base Excess -4.9 mmol/L (-2.0 -2.0) L 06/06/20 05:35 Moustapha Test Pos 06/06/20 05:35 A-a O2 Gradient 52.9 mmHg (5-10) H 06/06/20 05:35 Hematocrit 48.3 % (37-47) H 06/06/20 05:35 Hgb O2 Saturation 97.1 % (95-100) 06/06/20 05:35 Carboxyhemoglobin < 0.0 %THgb (0.4- 20.1) L 06/06/20 05:35 Methemoglobin 0.6 % (0.4-1.5) 06/06/20 05:35 Total Hemoglobin 15.7 g/dL (12-16) 06/06/20 05:35 Sodium 142.0 mmol/L (131 -143) 06/06/20 05:35 Potassium 4.4 mmol/L (3.5-5 .0) 06/06/20 05:35 Glucose 255.0 mg/dL (70-1 15) H 06/06/20 05:35 Ionized Calcium 1.4 mmol/L (1.1-1 .4) 06/06/20 05:35 O2 Delivery Device Bipap 06/06/20 05:35 FiO2 80.0 % 06/06/20 05:35 Set Up / Operator ID Harkr 06/06/20 05:35 Sodium 144 mmol/L (136-1 45) 06/06/20 05:41 Potassium 3.8 mmol/L (3.5-5 .1) 06/06/20 05:41 Chloride 109 mmol/L (98-10 7) H 06/06/20 05:41 Carbon Dioxide 21 mmol/L (22-29) L 06/06/20 05:41 Anion Gap 17.8 (5-19) 06/06/20 05:41 BUN 44 mg/dL (8-23) H 06/06/20 05:41 Creatinine 1.2 mg/dL (0.5-0. 9) H 06/06/20 05:41 GFR Calculation Not Reportable 06/06/20 05:41 Glucose 246 mg/dL (65-115 ) H 06/06/20 05:41 POC Glucose 282 mg/dL (70-110 ) H 06/06/20 11:44 Estimat Average Gl ucose 166 05/31/20 05:49 Hemoglobin A1c 7.4 % (4.0-6.0) H 05/31/20 05:49 Calculated Osmolal ity 317 mOsm/kg (285- 295) H 06/06/20 05:41 Lactate 1.4 mmol/L (0.5-2 .2) 06/01/20 06:38 Calcium 9.9 mg/dL (8.5-10 .5) 06/06/20 05:41 Magnesium 1.9 mg/dL (1.7-2. 3) 06/01/20 06:38 Ferritin 780 ng/mL (15-150 ) H 06/01/20 06:38 Total Bilirubin 1.0 mg/dL (0.15-1 .2) 06/06/20 05:41 AST 34 U/L (0-32) H 06/06/20 05:41 ALT 37 U/L (0-33) H 06/06/20 05:41 Alkaline Phosphata se 182 IU/L (35-105) H 06/06/20 05:41 C-Reactive Protein 35.3 mg/L (0.0-4. 9) H 06/06/20 05:41 Total Protein 7.1 g/dL (6.6-8.7 ) 06/06/20 05:41 Albumin 3.3 g/dL (3.5-5.2 ) L 06/06/20 05:41 Globulin 3.8 g/dL (1.3-4.6 ) 06/06/20 05:41 Lipase 32 U/L (13-60) 05/29/20 23:40 Procalcitonin 0.50 ng/mL (0-0.5 ) 06/01/20 06:38 Urine Color Yellow (Yellow) 05/30/20 02:00 Urine Appearance Clear (CLEAR) 05/30/20 02:00 Urine pH 5 (5-7) 05/30/20 02:00 Ur Specific Gravit y 1.015 (1.005-1.0 30) 05/30/20 02:00 Urine Protein Trace (Negative) 05/30/20 02:00 Urine Glucose (UA) 2+ (Normal) 05/30/20 02:00 Urine Ketones Negative (Negati ve) 05/30/20 02:00 Urine Blood 3+ (Negative) H 05/30/20 02:00 Urine Nitrate Negative (Negati ve) 05/30/20 02:00 Urine Bilirubin Neg (Negative) 05/30/20 02:00 Urine Urobilinogen Norm mg/dL (Negat jacinto) 05/30/20 02:00 Ur Leukocyte Claire ase Trace (Negative) H 05/30/20 02:00 Urine RBC 5-10 /hpf (0-2) H 05/30/20 02:00 Urine WBC 25-40 /hpf (0-5) H 05/30/20 02:00 Ur Squamous Epith Cells 0-4 /hpf (0-5) H 05/30/20 02:00 Amorphous Sediment Not Reportable 05/30/20 02:00 Urine Bacteria 3+ /hpf (NONE) H 05/30/20 02:00 Vancomycin Trough 12.9 ug/mL (10-15 ) 06/05/20 15:40 SARS-CoV-2 Ag (Rap id) Positive (Negati ve) H 05/31/20 17:[address] 05/29/20 23:03 IMPRESSION: Chronic left occipital infarct. Radiation Dose CTDIVOL = (mGy): DLP = 2005.07 (mGy-cm) Hip/Pelvis X-Ray 05/29/20 23:03 IMPRESSION: 1. No RIGHT hip fracture identified. Pelvis CT performed on the same day was also reviewed and no fracture is evident by CT of the pelvis. If concern for hip fracture persists consider dedicated RIGHT hip CT. 2. Severe RIGHT hip joint osteoarthritis. Abdomen/Pelvis CT 05/29/20 23:26 IMPRESSION: 1. No acute intra-abdominal findings. 2. Severe degenerative disease at the right hip. 3. Ill-defined opacity in the left lower lobe. Atelectasis versus infection. 4. 15 mm left adrenal nodule. Consider 12 month follow-up adrenal CT. (Dylan Brown, ACR White Paper, 2017) 5. Incidental findings above. Radiation Dose CTDIVOL = (mGy): DLP = 1197.29 (mGy-cm) Head/Neck CTA 05/29/20 23:33 IMPRESSION: 1. Widely patent carotid arteries. 2. Occluded right vertebral artery V1 segment, and intermittently occluded proximal to mid right vertebral artery V2 segments. 3. Indeterminate partially solid appearing 1.7 cm left thyroid lobe nodule, recommend ultrasound follow-up. 4. Mild apical ground-glass nonspecific lung opacities. 5. Mild mediastinal adenopathy. COMMENTS: Consistent with the [place] [employer]'s Incidental Findings Committee white paper (J Am Federico Radiol 2015): In patients aged 35 years and older with an incidental thyroid nodule equal to or greater than 1.[address], MRI or extrathyroidal US, further evaluation with dedicated thyroid US is recommended for patients with normal life expectancy and without comorbidities. For smaller nodules without suspicious features, no further evaluation or follow up is recommended. REFERENCES: NASCET CRITERIA. The degree of internal carotid artery stenosis is based on NASCET criteria. Normal is no stenosis. Mild is less than 50% stenosis. Moderate is 50-69% stenosis. Severe is 70% to 99% stenosis. Total occlusion is no detectable patent lumen. Radiation Dose CTDIVOL = (mGy): DLP = 1431.02~1432.01 (mGy-cm) Chest X-Ray 06/04/20 06:00 Impression: 1. Development of bilateral patchy opacities which may represent worsening pneumonia. 2. Mild cardiomegaly. 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 coli urosepsis, also positive for COVID-19 pneumonia-currently transferred to ICU for worsening acute hypoxic respiratory failure. NEURO: # Altered mental status secondary to Ecoli Urosepsis & Covid 19 Pneumonia # Chronic left occipital infarct on CT imaging with chronic left hemiparesis # Occluded right vertebral artery V1 segment, and intermittently occluded proximal to mid right vertebral artery V2 segments on Neck CTA - Currently on precedex 0.7 for anxiolysis -On aspirin, Plavix, Lipitor -Also patient received a dose of Zyprexa today morning PULM: #Acute hypoxic respiratory failure secondary to COVID-19 pneumonia -ABG today morning on BiPAP 16/8 FiO2 80% 7.4 05/17/126/17/97% -Currently on BiPAP 16/8 FiO2 50% maintaining sats greater than 95% -Repeat ABG -Low threshold for intubation -CXR 06/04/2020: Development of bilateral patchy opacities which may represent worsening pneumonia. -Patient is tachypneic between 40-50; order CTA to rule out PE; patient on Lovenox 40 mg daily -Worsening D-dimer but otherwise improving CRP -Currently on remdesivir and dexamethasone 6 mg IV daily -Currently on vancomycin and Zosyn-switch to imipenem CVS: #Sinus tachycardia with respiratory distress-rule out PE #Hypertension -Started on metoprolol 25 mg p.o. twice daily and 2.5 mg IV every 4 schedule -On lisinopril 10 mg p.o. daily -Hemodynamically stable -Sepsis management as below -Order echo for LV function and BNP GI: #Diet-n.p.o. for now as patient is altered mental status #GI prophylaxis: Famotidine 20 mg IV every 12 hours as patient is on steroids #Worsening LFTs: Slightly better today #Abdominal distention and tenderness -Abdominal x-ray and ultrasound ordered -Avoid hepatotoxic medications -Monitor LFTs RENAL: -Creatinine 1.2 - unclear basline -Today bicarb 21 electrolytes within normal limits -I/O/N-[id number]/-880 since admission, last 24 hours 1100/1150/-50 -Good urine output -Avoid nephrotoxins -Monitor renal functions and electrolytes and supplement to keep potassium > 4 and mg > 2 HEM: -H&H stable -Plts stable,will trend -Coags stable -DVT prophylaxis: Lovenox 40 mg daily ENDO: #Diabetes -Uncontrolled sugars likely due to steroids -FSBS [id number] required 44 in 24 hours -Start on Lantus 10 mg twice daily and continue scale coverage -Check every 6 hours ID: #Severe sepsis secondary to COVID pna and E. coli UTI -afebrile,Tmax 98.7,Mild leucocytosis 12k -Urine cultures positive for E. coli resistant to quinolones -I will send lactic acid and procalcitonin -Currently on vancomycin and Zosyn; DC Zosyn and started imipenem due to worsening respiratory status Code Status: Full code Disposition: Remains in ICU Critically ill: Remains critically ill MD discussed with: Dr. Landaverde, RN and RT taking care of the patient Family: Updated ICU CHECKLIST: Problem list updated Verbal orders reviewed and signed Analgesia: N/A Glycemic Control: Insulin scale coverage Nutrition: N.p.o. for now Restraint Renewal (within 24 hrs): Yes Ulcer Prophylaxis: H2 natalya Chemical Thromboprophylaxis: Prophylaxis: Lovenox Mechanical Thromboprophylaxis: SCDs Need for Blake catheter: Input output monitoring Need for Central line: Not at present as patient is hemodynamically stable Case discussed with RN, consultants and family or surrogate(s) and Dr. Dr. Landaverde, Consult Attestations Medical Necessity Statement: Acute hypoxic respiratory failure due to Covid worsening COVID-19 pneumonia and altered mental status secondary to sepsis due to UTI and Covid pneumonia-impending respiratory failure needs close monitoring and observation in ICU Time Spent in Patient Care: Greater than 35 minutes (>than 50% of time spent in counselling and/or direct pt care on unit). 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
[2020-06-06 11:47] LABS: Glucose Point of Care 282 mg/dL (70-110)
--- NOTE | 2020-06-06 12:00 | PC.NURSE ---
verified that pt remains unstable blood pressure down sat remain 90 to 90 resp rate 48
[2020-06-06 13:53] LABS: ABG PCO2 25.3 mmHg (35-45); ABG PH Result 7.45 (7.35-7.45); Alveolar-Arterial Oxygen Gradi 29.9 mmHg (5-10); Arterial Blood Gas Hematocrit 44.6 % (37-47); Base Excess ABG -4.7 mmol/L (-2.0-2.0); Blood Gas Allen Test Pos; Blood Gas Operator Identificat CAK; Blood Gas Sample Site Radial, left; Blood Gas Sample Type Arterial; Carboxyhemoglobin < 0.0 %THgb (0.4-20.1); HCO3 ABG 17.5 mmol/L (22-26); HGB O2 Sat 88.5 % (95-100); Ionized Calcium Level - ABG 1.4 mmol/L (1.1-1.4); Methemoglobin 0.8 % (0.4-1.5); Oxygen Device BIPAP; Oxygen Saturation ABG 89.1; PO2 ABG 56.8 mmHg (80.0-100.0); Potassium Level - ABG 3.7 mmol/L (3.5-5.0); Total Hemoglobin 14.6 g/dL (12-16)
--- NOTE | 2020-06-06 15:16 | PC.NURSE ---
titrating precedex at this time remains mottled and respritory rate up to 50bpm
--- NOTE | 2020-06-06 15:31 | PC.NURSE ---
remains unstable at this time resp rate remains between 40 to 50 noted blood pressure down after iv meds given repositioned at this time sitter at bedside
[2020-06-06] MEDS: vancomycin 1,500 MG/300 ML PIGGYBACK 200 MG IV (16:05)
--- NOTE | 2020-06-06 16:21 | PC.NURSE ---
lab adelfo blood very difficult stick... called and verified it had hemolyslis
[2020-06-06 16:44] LABS: Ketone (Acetest) Serum Negative (Negative)
[2020-06-06 17:06] LABS: Lactate (Lactic Acid level) 2.3 mmol/L (0.5-2.2)
[2020-06-06 17:14] LABS: Glucose Point of Care 305 mg/dL (70-110)
[2020-06-06] MEDS: remdesivir 100 MG in sodium chloride 0.9% (100 ml) 100 ML IV (18:19)
[2020-06-06] MEDS: ipratropium-albuterol 3 mL Neb INHALATION ×2 (20:06→23:40)
[2020-06-06] MEDS: enoxaparin 100 mg/mL Syringe 90 MG SUBCUT (21:09)
[2020-06-06] MEDS: insulin glargine 100 units/1 mL 10 UNIT SUBCUT (21:15)
[2020-06-06 21:25] LABS: Glucose Point of Care 343 mg/dL (70-110)
[2020-06-06] MEDS: OLANZapine 10 mg VIAL 5 MG IM ×2 (22:19→22:49)
--- NOTE | 2020-06-06 23:22 | PC.NURSE ---
2043 Pt anxious fighting bipap increased precedex gtt and gave ativan notified increased respiratory rate 45 -50 no orders given 2248 Pt restless agitated gave Zyprexa IM Catheter leaking urine Replaced with new rashid catheter kit sterile technique used
[2020-06-06] MEDS: dexmedetomidine 400 MCG in sodium chloride 0.9% (100 ml) 100 ML 16.5 MCG IV (23:58)
[2020-06-07] VITALS (120 sets, daily range): BP systolic 84–161; BP diastolic 45–107; PULSE 61–144; RESP 17–47; TEMP 36.4–39.2; O2SAT 42–100
[2020-06-07] MEDS: ipratropium-albuterol 3 mL Neb INHALATION ×5 (03:33→19:52)
[2020-06-07 04:38] LABS: ABG PCO2 22.6 mmHg (35-45); ABG PH Result 7.35 (7.35-7.45); Arterial Blood Gas Hematocrit 47.3 % (37-47); Blood Gas Sample Site Brachial, right; Blood Gas Sample Type Arterial; HCO3 ABG 12.4 mmol/L (22-26); Oxygen Device BIPAP; PO2 ABG 85.5 mmHg (80.0-100.0)
[2020-06-07] MEDS: insulin glargine 100 units/1 mL 10 UNIT SUBCUT (05:47)
--- NOTE | 2020-06-07 06:00 | XRR_ITS ---
PROCEDURE INFORMATION: Exam: XR Chest Exam date and time: 06/07/2020 7:13 AM Age: 75 years old Clinical indication: Shortness of breath; Additional info: Hypoxia TECHNIQUE: Imaging protocol: XR of the chest. Views: 1 view. COMPARISON: CR XR chest 1V portable [id number] 06/04/2020 5:21 AM FINDINGS: Lungs: Improved aeration of the lungs when compared to previous study. Persistent but improved bilateral airspace opacities, left greater than right. Pleural spaces: Persistent small left pleural effusion. No pneumothorax identified. Heart/Mediastinum: New pneumomediastinum is suspected. Bones/joints: Unremarkable. XR/XR chest 1V portable [id number] IMPRESSION: 1. Pneumomediastinum is suspected. Further evaluation with chest CT is recommended. 2. Mildly improved bilateral airspace opacities, left greater than right. 3. Persistent small left pleural effusion.
[2020-06-07 06:06] LABS: Basophils # 0.1 10^3/uL (0.0-0.1); Basophils % 0.4 %; Eosinophils # 0.1 10^3/uL (0.0-0.8); Eosinophils % 0.6 %; Hematocrit 50.2 % (37.0-47.0); Hemoglobin 15.5 g/dL (11.5-15.3); Lymphocytes # 0.6 10^3/uL (0.8-4.8); Mean Corpuscular HGB Conc 30.9 g/dL (30.0-36.0); Mean Platelet Volume 12.5 fL (7.4-10.4); Monocytes # 0.8 10^3/uL (0.2-0.9); Monocytes % 5.7 %; Neutrophils # 12.42 10^3/uL (1.8-7.7); Neutrophils % 87.7 %; Nucleated Red Blood Cells % 0.3 %; Platelet Count 120 10^3/cmm (130-400); Red Blood Count 5.34 10^6/uL (4.1-5.3); White Blood Count 14.2 10^3/uL (4.0-10.0)
[2020-06-07 06:07] LABS: Glucose Point of Care 375 mg/dL (70-110)
[2020-06-07] MEDS: dexmedetomidine 400 MCG in sodium chloride 0.9% (100 ml) 100 ML 14.2 MCG IV (06:34)
[2020-06-07 07:30] LABS: Glucose Point of Care 517 mg/dL (70-110)
[2020-06-07 07:31] LABS: Glucose Point of Care 459 mg/dL (70-110)
--- NOTE | 2020-06-07 07:41 | PC.NURSE ---
Patient is brathing 40-45 times a minute. REsponsive to pain only. Per nightshift nurse this was her status for the past 12 hours, no new order were given to rn night. NUrse alerted Dr Tenorio to breathing rate and responsiveness. No new orders at this time.
--- NOTE | 2020-06-07 07:43 | PC.NURSE ---
Patient has a Blood glucose of 517. SLiding scale orders only cover a BG of 400. Nurse alerted Dr dow. Was advised to increase to med dosing insulin regimen and give highest dose indicated by sliding scale.
--- NOTE | 2020-06-07 08:14 | PC.NURSE ---
Patient's brathing rate has incrased to 60 per minute. Nurse alerted Dr dow. was advised to alert RT to get intubation equipment ready. Place an order for levophed if needed, and get consent. Nurse got intubation consent from patient's the [facility] eddie bravo witnessed by Nurse PA mosquera
[2020-06-07 08:23] LABS: Slide Review Slide Review Perform
--- NOTE | 2020-06-07 08:32 | XRR_ITS ---
PROCEDURE INFORMATION: Exam: XR Chest Exam date and time: 06/07/2020 8:40 AM Age: 75 years old Clinical indication: Device placement; Ett placement (vent status); Additional info: Intubation TECHNIQUE: Imaging protocol: XR of the chest. Views: 1 view. COMPARISON: CR XR chest 1V portable [id number] 06/07/2020 7:27 AM FINDINGS: Tubes, catheters and devices: Endotracheal tube is in satisfactory position. Lungs: Persistent bilateral airspace opacities, left greater than right. Pleural spaces: Unchanged blunting of the left costophrenic angle. Heart/Mediastinum: Stable cardiomediastinal silhouette. Bones/joints: Cervical spine fusion hardware noted. Persistent linear lucencies over the left heart contour, concerning for pneumomediastinum. XR/XR chest 1V portable [id number] IMPRESSION: 1. Endotracheal tube is in satisfactory position. 2. Imaging findings concerning for pneumomediastinum. Further evaluation with chest CT is recommended. 3. Persistent bilateral airspace opacities and blunting of the left costophrenic angle.
--- NOTE | 2020-06-07 08:49 | P.ANES_ITS ---
Anesthesia Procedures Procedure/Date: 06/07/20 Intubation: Time Out Performed: Yes Consent: requested by attending/covering physician and emergency procedure Sedative (amount): etomidate (Etomidate 4mg Propofol 50mg) Paralytic (amount): succinylcholine (40mg) Laryngoscope: Winifred ET Tube Uncuffed: No Tube Secured Depth (cm): 22 Tube Placement Confirmation: visualized tube passing through cords, equal breath sounds bilaterally and color change noted Patient Tolerated P rocedure: well Intubation Complications: none Additional Comments: Performed by Dr. Tierney, assisted by myself. Masked easily, DLX1, grade 1,no trauma.
[2020-06-07] MEDS: midazolam 1 mg/mL INJ 2 mL 2 MG IVP (09:13)
--- NOTE | 2020-06-07 09:40 | USR_ITS ---
PROCEDURE INFORMATION: Exam: US Duplex Lower Extremity Veins, Bilateral Exam date and time: 06/07/2020 11:35 AM Age: 75 years old Clinical indication: Other: Pulmonary embolism; Additional info: Dvt TECHNIQUE: Imaging protocol: Real-time duplex ultrasound of the extremities with 2-D etienne scale, color Doppler flow and spectral waveform analysis with image documentation. Complete exam focused on the bilateral lower extremity veins. COMPARISON: No relevant prior studies available. FINDINGS: Right deep veins: Unremarkable. The common femoral, femoral, proximal profunda femoral and popliteal veins are patent without thrombus. Normal Doppler waveforms. Normal compressibility and/or augmentation response. Right superficial veins: Saphenofemoral junction is patent without thrombus. Left deep veins: Unremarkable. The common femoral, femoral, proximal profunda femoral and popliteal veins are patent without thrombus. Normal Doppler waveforms. Normal compressibility and/or augmentation response. Left superficial veins: Saphenofemoral junction is patent without thrombus. Soft tissues: Unremarkable. US/CV venous duplex [facility] [id number] IMPRESSION: No evidence of deep vein thrombosis.
--- NOTE | 2020-06-07 09:41 | PM.PN ---
Subjective Subjective: Interval history: She has been more lethargic this morning. Overnight episode of confusion. This morning responsive to pain. Tachypnea getting worse. Vitals/I&O/Wt Last Vital Signs Temp 99.0 F 06/07/20 04:00 Pulse 93 06/07/20 07:55 Resp 41 H 06/07/20 09:13 BP 110/75 06/07/20 00:00 Pulse Ox 94 06/07/20 09:13 06/06/20 06/07/20 06/07/20 22:59 06:59 14:59 Intake Total 331.803 / 331.803 244.107 / 575.910 Output Total 1000 / 1000 250 / 1250 Balance -668.197 / -668.197 -5.893 / -674.090 Physical Exam Const: COMMON NORMALS: no acute distress; negative for patient oriented x3 GENERAL APPEARANCE: frail appearing NUTRITIONAL APPEARANCE: obese ORIENTATION/CONSCIOUSNESS: Yes confused OTHER: Lethargic. Confused. HENMT: COMMON NORMALS: oropharynx normal Neck/C-Spine: COMMON NORMALS: no JVD Resp: COMMON NORMALS: normal respiratory effort and clear to auscultation bilaterally EFFORT & INSPECTION: Yes tachypneic AUSCULTATION: clear to auscultation bilaterally Cardio: COMMON NORMALS: no JVD, regular rhythm, S1 normal heart sound present, S2 normal heart sound present and No murmurs present (Cardio) RHYTHM: regular rhythm HEART SOUNDS: S1 normal heart sound present and S2 normal heart sound present GI: COMMON NORMALS: Normal to inspection, nondistended, normoactive bowel sounds present, Soft to palpation and non-tender PALPATION: Yes Soft to palpation Extremity: COMMON NORMALS: no joint enlargement and no pedal edema Neuro: COMMON NORMALS: negative for patient oriented x3 Skin: COMMON NORMALS: no rashes or lesions noted GENERAL SKIN EXAM: no rashes or lesions noted Urinary Catheter Management^: Blake: Cath Placed During This Visit: yes, but has since been removed by the nurse Reason for Continuing Indwelling Catheter: Accurate Measurement of Urinary Output in Critically Ill Patients Urinary Catheter Date of Insertion: 06/06/20 Urinary Catheter Time of Insertion: 22:49 Date Urinary Catheter Removed: 06/06/20 Time Urinary Catheter Discontinued: 22:49 Data : 06/07/20 05:39 06/06/20 05:41 A&P Assessment and plan (1) COVID-19 virus infection: Progressively worsening hypoxic respiratory failure. Tachypnea this morning. More lethargic. Worsening encephalopathy, acute delirium. Consent was obtained from her granddaughter for intubation, and she was intubated by supervisor powdered sugar with anesthesia. Currently we will continue to optimize her respiratory rate which remains high. Optimizing sedation. Continue fentanyl, propofol, Versed is added. This morning also noted to have atrial fibrillation with RVR, heart rates in the 150s-160s. Given digoxin 0.25 IV push. Monitor heart rates. Repeat additional doses depending on response. She is somewhat on the dry side as well, mildly in negative balance. We will give bolus of LR. 500 mL for now. Monitor, repeat if needed. So far is not hypotensive, Levophed is ready in case she needs it. Maintaining saturations throughout in the low 90s. Continue Decadron, dysuria, continue antibiotics for superimposed bacterial pneumonia. Continue therapeutic Lovenox dose. Access being obtained by central line. On ultrasonography appearance of possible VTE in left lower extremity. Will obtain lower extremity duplex ultrasound. Discussed with her granddaughter who is agreeable with plan. Status: Acute (2) Respiratory failure with hypoxia: As above. Status: Acute Qualifiers: Chronicity: acute Qualified Code(s): J96.01 - Acute respiratory failure with hypoxia (3) Altered mental status: Worsening encephalopathy due to progression of severe COVID-19, acute respiratory failure. Acute encephalopathy, delirium secondary to acute medical condition. Precedex. One-to-one sitter. Reorient. Reassure. Continue treatment of underlying conditions. Status: Acute Qualifiers: Altered mental status type: unspecified Qualified Code(s): R41.82 - Altered mental status, unspecified (4) Acute cystitis: Completed antibiotic course. 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 Change aspirin to suppository. Other oral medications on hold for now. Status: Acute Additional A&P Information Abdominal tenderness: On 06/06. Abdominal x-ray poor quality, but unremarkable. Right upper quadrant ultrasound not optimal quality, but no acute biliary pathology, status post cholecystectomy. Mildly prominent liver. There is some metabolic acidosis, lactic acid mildly high at 2.3. Possibly secondary to hypoxic respiratory, sepsis. If becomes somewhat more stable, consider additional imaging. Sepsis due to COVID-19 infection plus UTI, possible superimposed bacterial pneumonia: As above. Thrombocytopenia: Improved. Currently down somewhat to 120. Monitor. Bone marrow suppression secondary to COVID-19. Acute kidney injury: Improving. Granddaughter reports history of trouble with kidneys. Possible CKD. Hypertension: Close to goal. DM - Sliding scale insulin Chronic back pain / opiods use DVT prophylaxis - SCDs- Lovenox Attestations Medical Necessity Statement*: Continue admission for assessment management of severe COVID-19, acute hypoxic respite failure, superimposed bacterial pneumonia, acute encephalopathy, possible DVT. Critical Care Time: In addition to noncritical issues 65 minutes critical care time spent on assessment management of respiratory failure, acute encephalopathy, arrangements of intubation, optimization of sedation, hemodynamic and pressor support, assessment of possible DVT, reevaluation of anticoagulation. Discussed with director of rotc, anesthesia, nursing staff, respiratory therapy. Could not reach granddaughter this morning for additional update. 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
[2020-06-07] MEDS: propofol 1,000 MG/100 ML INJ 27.2 MG IV ×3 (10:06→14:46)
--- NOTE | 2020-06-07 10:23 | XRR_ITS ---
PROCEDURE INFORMATION: Exam: XR Chest Exam date and time: 06/07/2020 10:33 AM Age: 75 years old Clinical indication: Device placement; Other: Og and central line placement; Additional info: Confirm og tube and central line placement TECHNIQUE: Imaging protocol: XR of the chest. Views: 1 view. COMPARISON: CR (CHEST, ) 06/07/2020 9:03 AM FINDINGS: Tubes, catheters and devices: Endotracheal tube is in satisfactory position. Left IJ approach central line is in satisfactory position, with distal tip in the RA. Feeding tube is in satisfactory position. Lungs: Persistent bilateral airspace opacities, left greater than right. Pleural spaces: Unchanged blunting of the left costophrenic angle. No pneumothorax. Heart/Mediastinum: Persistent linear lucency about the left mediastinal contour, suggestive of pneumomediastinum. Stable cardiomediastinal silhouette. Bones/joints: Cervical spine fusion hardware noted. Degenerative changes of the spine seen. XR/XR chest 1V portable [id number] IMPRESSION: 1. Endotracheal tube, left IJ central line and feeding tube are in satisfactory position. 2. Unchanged bilateral airspace opacities, left greater than right. 3. Question pneumomediastinum. Further evaluation with chest CT should be considered.
[2020-06-07] MEDS: digoxin 250 mcg/ml INJ 2 mL IVP (10:27)
[2020-06-07 10:30] LABS: ABG PCO2 27.1 mmHg (35-45); ABG PH Result 7.24 (7.35-7.45); Alveolar-Arterial Oxygen Gradi 68.6 mmHg (5-10); Arterial Blood Gas Hematocrit 44.7 % (37-47); Blood Gas Allen Test Pos; Blood Gas Sample Site Radial, left; Blood Gas Sample Type Arterial; Carboxyhemoglobin 0.1 %THgb (0.4-20.1); HCO3 ABG 11.7 mmol/L (22-26); HGB O2 Sat 97.1 % (95-100); Ionized Calcium Level - ABG 1.4 mmol/L (1.1-1.4); Methemoglobin 1.2 % (0.4-1.5); Oxygen Device VENT; Oxygen Saturation ABG 98.4; Potassium Level - ABG 4.4 mmol/L (3.5-5.0); Total Hemoglobin 14.6 g/dL (12-16)
--- NOTE | 2020-06-07 10:43 | P.PCN_ITS ---
Procedure/Consent Time out: Time Out Performed: Yes Consent: Consent for Procedure: Emergency procedure Procedure Narrative: Left internal jugular central venous triple-lumen catheter placement Procedure time: 06/07/2020 10 AM Procedure: Central venous access placement Indication: Access for multiple sedation infusions and possible paralytic and pressors and patient with significant respiratory distress and recently intubated Computer Terminal Operator(s): Kirill Jimenezr Consent: Emergent yes Time out called. [place] precautions applied. Site: Left IJ Catheter: 7 Fr, 20 cm, Triple Lumen Sutured at: 19 cm Anesthesia: 10 cc 1% lidocaine without epinephrine Description: Area prepped with chlorhexidine and draped in a universal sterile manner. The vessel anatomy and patency was examined by ultrasound probe which was covered with sterile probe cover. The needle was inserted into the vessel under ultrasound guidance, after venous blood aspirated the guidewire was inserted through the needle and kept in situ while the needle was removed. Placement of guidewire in the vein and in relation to the adjacent artery was verified by ultrasound. Catheter was then advanced over the guidewire after dilation and guidewire successfully removed.The catheter was sutured to the skin and sterile dressing with chlorhexidine patch placed. Number of attempts: 1 Dilator applied: Yes, number of Dilations: 1 Placement Verified by: Blood draw from all ports and Ultrasound exam and Chest Xray EBL: Less than 5 cc Complications: None Ultrasound guidance used: Yes Images saved: Yes Acute Procedures Epistaxis Control: Time out performed: Yes
[2020-06-07] MEDS: enoxaparin 100 mg/mL Syringe 90 MG SUBCUT (10:44)
[2020-06-07] MEDS: famotidine 20 mg/2 mL INJ IVP ×2 (10:47→21:18)
[2020-06-07] MEDS: dexamethasone 4 mg/mL INJ 6 MG IV (10:59)
[2020-06-07] MEDS: lactated ringers 500 ML 999 ML IV (11:04)
--- NOTE | 2020-06-07 11:06 | PM.PN ---
Subjective Subjective: Interval history: -Today morning Chest x-ray today reported possible pneumomediastinum -Patient tachypnea tachycardia worsen with RR 40-50 even with Precedex 0.7 patient still confused. Intubated and sedated fentanyl drip 125 MCG, Versed drip 1 mg, propofol drip 50 mg, Precedex 0.7 mg. And also received digoxin loading dose for A. fib RVR. Left IJ central line placed for access. -Labs and imaging reviewed -Plan to paralyze if come down -Bedside ultrasound showed suspicious clot in bilateral femoral veins ordered bilateral lower extremity Dopplers to rule out DVT -Patient is already on Lovenox therapeutic dose for PE/DVT -Patient to go for CT angiogram to rule out PE and pneumomediastinum Vitals/I&O/Wt Last Vital Signs Temp 99.0 F 06/07/20 04:00 Pulse 93 06/07/20 07:55 Resp 39 H 06/07/20 10:55 BP 110/75 06/07/20 00:00 Pulse Ox 94 06/07/20 10:55 06/06/20 06/07/20 06/07/20 22:59 06:59 14:59 Intake Total 331.803 / 331.803 244.107 / 575.910 Output Total 1000 / 1000 250 / 1250 Balance -668.197 / -668.197 -5.893 / -674.090 Physical Exam Narrative: EXAM NARRATIVE: PHYSICAL EXAM: General: lying in bed, sedated and intubated. HEENT:NCAT, PERRLA, EOMI Neck: Supple Lungs: Clear, Heart: s1/s2, RRR Abd: Obese distended, no organomegaly left internal jugular line BS positive Extremities: No edema EM PHYSICIAN: sedated and limited EM PHYSICIAN exam possible. SKIN: no rash LDA: # CVC: Left IJ 06/10/2020 # Blake: 06/06/2020 Urinary Catheter Management^: Blake: Cath Placed During This Visit: yes, but has since been removed by the nurse Reason for Continuing Indwelling Catheter: Accurate Measurement of Urinary Output in Critically Ill Patients Urinary Catheter Date of Insertion: 06/06/20 Urinary Catheter Time of Insertion: 22:49 Date Urinary Catheter Removed: 06/06/20 Time Urinary Catheter Discontinued: 22:49 Data : 06/07/20 05:39 06/06/20 05:41 A&P Assessment and plan (1) Respiratory failure with hypoxia: Status: Acute Qualifiers: Chronicity: acute Qualified Code(s): J96.01 - Acute respiratory failure with hypoxia (2) COVID-19 virus infection: Status: Acute (3) Occipital stroke: Status: Acute (4) Altered mental status: Status: Acute Qualifiers: Altered mental status type: unspecified Qualified Code(s): R41.82 - Altered mental status, unspecified (5) UTI (urinary tract infection), bacterial: Status: Acute (6) Diabetes: Status: Acute Qualifiers: Diabetes mellitus type: type 2 Diabetes mellitus custodial insulin use: unspecified adjunct faculty for medical terminology insulin use status Diabetes mellitus complication status: with other specified complication Qualified Code(s): E11.69 - Type 2 diabetes mellitus with other specified complication (7) Pneumomediastinum: Status: Acute (8) Atrial fibrillation with RVR: Status: Acute ASSESSMENT/PLAN: Overall: 75-year-old female with past medical history of diabetes, hypertension initially admitted to hospital for further AMS due to E. coli urosepsis, also positive for COVID-19 pneumonia-currently transferred to ICU and intubated for worsening respiratory failure. NEURO: # Altered mental status secondary to Ecoli Urosepsis & Covid 19 Pneumonia # Chronic left occipital infarct on CT imaging with chronic left hemiparesis # Occluded right vertebral artery V1 segment, and intermittently occluded proximal to mid right vertebral artery V2 segments on Neck CTA - Currently on precedex 0.7 for anxiolysis -On aspirin, Plavix, Lipitor - fentanyl drip 125 MCG, Versed drip 1 mg, propofol drip 50 mg, Precedex 0.7 mg. -Plan to paralyze if RR does not normalize PULM: #Acute hypoxic respiratory failure secondary to COVID-19 pneumonia #Pneumomediastinum -ABG today morning on BiPAP 01/26 FiO2 65% 7.3 07/12//12/ -Today morning Chest x-ray today reported possible pneumomediastinum -Patient tachypnea tachycardia worsen with RR 40-50 even with Precedex 0.7 patient still confused. Intubated and sedated -Repeat ABG after intubation seven-point 04/19/146/11/98% on 100% FiO2 PEEP 5 -Placed patient on MMC and reduce FiO2 to 80% -CXR today morning: Suspected pneumomediastinum. Mildly improved bilateral airspace opacities. -Patient to get CTA to rule out PE and pneumomediastinum; - patient on Lovenox 90 mg SC every 12 -Worsening D-dimer but otherwise improving CRP -Currently on remdesivir and dexamethasone 6 mg IV daily -Currently on vancomycin and imipenem CVS: #Sinus tachycardia with intermittent A. fib with respiratory distress-rule out PE #Hypertension #Clinically dehydrated given -Give 500 mL LR bolus -Started on digoxin 125 mg daily -Also on metoprolol 25 mg p.o. twice daily and 2.5 mg IV every 4 schedule. -On lisinopril 10 mg p.o. daily -Hemodynamically stable -Sepsis management as below -Echo done report pending GI: #Diet-n.p.o. for now #GI prophylaxis: Famotidine 20 mg IV every 12 hours as patient is on steroids #Worsening LFTs: Slightly better -Avoid hepatotoxic medications -Monitor LFTs RENAL: -Creatinine 1.2 - unclear basline - bicarb 21 electrolytes within normal limits-today CMP pending -I/O/N-8.2 L / 9.5 L/-1.2 since admission, last 24 hours 575/1.2 L/-674 -Patient is clinically dehydrated, tachycardic and dry oral mucosa -Recommended to give 500 mL bolus LR and if echo is normal then 30 mL/HR -Good urine output -Avoid nephrotoxins -Monitor renal functions and electrolytes and supplement to keep potassium > 4 and mg > 2 HEM: -H&H stable -Plts 120 today-trend -Coags stable -DVT prophylaxis: Lovenox -Bedside ultrasound showed suspicious clot in bilateral femoral veins - ordered bilateral lower extremity Dopplers to rule out DVT -Patient is already on Lovenox therapeutic dose for PE/DVT -Patient to go for CT angiogram to rule out PE and pneumomediastinum ENDO: #Diabetes -Uncontrolled sugars likely due to steroids -Currently on Lantus 10 mg twice daily -Still FSBS [id number] 2 readings greater than 400 -Increase Lantus to 20 mg twice daily and continue scale coverage -Check every 6 hours ID: #Severe sepsis secondary to COVID pna and E. coli UTI -afebrile,Tmax 98.7,Mild leucocytosis 14k -Urine cultures positive for E. coli resistant to quinolones -Lactic acid 2.3 procalcitonin 0.55 on 05/31/2020 -Currently on vancomycin and imipenem due to worsening respiratory status Code Status: Full code Disposition: Remains in ICU Critically ill: Remains critically ill MD discussed with: Dr. Landaverde, RN and RT taking care of the patient Family: Updated ICU CHECKLIST: Problem list updated Verbal orders reviewed and signed Analgesia: N/A Glycemic Control: Insulin scale coverage Nutrition: N.p.o. for now Restraint Renewal (within 24 hrs): Yes Ulcer Prophylaxis: H2 natalya Chemical Thromboprophylaxis: Prophylaxis: Lovenox Mechanical Thromboprophylaxis: SCDs Need for Blake catheter: Input output monitoring Need for Central line: Yes for multiple medications and infusions and possible paralytic and pressors Case discussed with RN, consultants and family or surrogate(s) and Dr. Landaverde, Attestations Medical Necessity Statement*: Intubated today morning for worsening respiratory failure-needs close monitoring in ICU Time Spent in Patient Care: Greater than 35 minutes (>than 50% of time spent in counselling and/or direct pt care on unit). Critical Care Time: The high probability of a clinically significant, sudden or life threatening deterioration of the patient's [respiratory] system(s) required my full and direct attention, intervention and personal management. The critical care time is as shown. 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 Patient Type Established History Comprehensive Exam Comprehensive Medical Decision Making High Complexity Diagnoses Respiratory failure with hypoxia J96.01 Chronicity: acute COVID-19 virus infection U07.1 Occipital stroke I63.9 Altered mental status R41.82 Altered mental status type: unspecified UTI (urinary tract infection), bacterial N39.0; A49.9 Diabetes E11.69 Diabetes mellitus type: type 2 Diabetes mellitus adjunct faculty for medical terminology insulin use: unspecified adjunct faculty for medical terminology insulin use status Diabetes mellitus complication status: with other specified complication Pneumomediastinum J98.2 Atrial fibrillation with RVR I48.91 Time Spent (min) 45
--- NOTE | 2020-06-07 11:23 | PC.NURSE ---
REceived consent from Patient's [facility] for Central line placement. Nurse Briana/warehouse administrator witnessed. Nurse assisted Dr Tierney and Dr Tenorio with intubation.
--- NOTE | 2020-06-07 11:24 | PC.NURSE ---
Nurse called patient's [facility] Lupe Gonzalez. Advised central line placement and intubation went well. Pt is currently resting.
[2020-06-07 12:04] LABS: Alanine Aminotransferase 21 U/L (0-33); Albumin Level 2.5 g/dL (3.5-5.2); Alkaline Phosphatase 143 IU/L (35-105); Anion Gap 21.6 (5-19); Aspartate Amino Transferase 17 U/L (0-32); Blood Urea Nitrogen 67 mg/dL (8-23); C Reactive Protein 79.1 mg/L (0.0-4.9); Calcium 9.3 mg/dL (8.5-10.5); Carbon Dioxide 13 mmol/L (22-29); Chloride 114 mmol/L (98-107); Globulin 3.1 g/dL (1.3-4.6); Osmolality Calculated 343 mOsm/kg (285-295); Potassium 4.6 mmol/L (3.5-5.1); Sodium 144 mmol/L (136-145); Total Bilirubin 0.6 mg/dL (0.15-1.2); Total Protein 5.6 g/dL (6.6-8.7)
[2020-06-07 12:07] LABS: Glucose 553 mg/dL (65-115)
--- NOTE | 2020-06-07 12:08 | PC.NURSE ---
received critical lab for Blood glucose: 553. Already being treated. Pt was recently given 16 units of insulin,
[2020-06-07 12:09] LABS: D Dimer >= 20.00 ug/mIFEU (0-0.59)
--- NOTE | 2020-06-07 12:33 | PC.NURSE ---
Patient's breathing rate continues to be 40. Nurse alerted Dr dow. Recieved orders to increase fentanyl from 125 to 150 and to increased versed to 5.5
[2020-06-07 13:04] LABS: Glucose Point of Care 508 mg/dL (70-110)
[2020-06-07 13:04] LABS: Glucose Point of Care 496 mg/dL (70-110)
[2020-06-07] MEDS: dexmedetomidine 400 MCG in sodium chloride 0.9% (100 ml) 100 ML 16.5 MCG IV (13:19)
--- NOTE | 2020-06-07 13:30 | PC.NURSE ---
REspiratory rate is still in the 40's. Nurse alerted Dr Tenorio. received orders to increase fentanyl to 150.
--- NOTE | 2020-06-07 13:46 | ECG_ITS ---
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 Measurements Intervals [place] Rate: 84 P: [place]: QRS: 45 QRSD: 106 T: -7 QT: 356 QTc: 423 Interpretive Statements ATRIAL FIBRILLATION NONSPECIFIC ST & T-WAVE ABNORMALITY ABNORMAL RHYTHM ECG Compared to ECG 05/29/2020 23:45:29 T-wave abnormality now present Ventricular premature complex(es) no longer present Aberrant conduction of supraventricular beat(s) no longer present Electronically Signed On 06-08-2020 10:36:44 CDT by Coty Salcido M.D. [id number]
[2020-06-07] MEDS: aspirin 325 mg Tablet PO (14:42)
[2020-06-07] MEDS: vancomycin 1,500 MG/300 ML PIGGYBACK 200 MG IV (14:45)
[2020-06-07 15:04] LABS: Ketone (Acetest) Serum Negative (Negative)
[2020-06-07 15:14] LABS: Lactate (Lactic Acid level) 3.9 mmol/L (0.5-2.2)
[2020-06-07 15:16] LABS: Troponin(5th) Baseline 71 ng/L (0-10)
[2020-06-07] MEDS: heparin drip 25,000 UNIT/500 ML PREMIX 25.4 UNIT IV (15:17)
[2020-06-07] MEDS: cisatracurium 100 MG in sodium chloride 0.9% 50 ML IV (15:27)
--- NOTE | 2020-06-07 15:46 | ECG_ITS ---
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 Measurements Intervals [place] Rate: 87 P: [place]: QRS: 44 QRSD: 110 T: -42 QT: 351 QTc: 423 Interpretive Statements ATRIAL FIBRILLATION ST DEVIATION AND MODERATE T-WAVE ABNORMALITY, CONSIDER ANTERIOR ISCHEMIA [-0.1+ mV T WAVE IN V3/V4] ST DEVIATION AND MODERATE T-WAVE ABNORMALITY, CONSIDER INFERIOR ISCHEMIA [-0.1+ mV T WAVE IN II/aVF] Compared to ECG 06/07/2020 14:32:28 Possible ischemia now present T-wave abnormality still present Electronically Signed On 06-08-2020 10:52:24 CDT by Coty Salcido M.D. [id number]
[2020-06-07 15:49] LABS: Glucose Point of Care 517 mg/dL (70-110)
[2020-06-07] MEDS: insulin regular-human 250 UNIT in sodium chloride 0.9% 250 ML 13.8 UNIT IV (15:49)
[2020-06-07 16:45] LABS: Glucose Point of Care 439 mg/dL (70-110)
[2020-06-07 17:02] LABS: Blood Gas Operator Identificat GD; Blood Gas Sample Type Arterial; Ionized Calcium Level - ABG 1.5 mmol/L (1.1-1.4); Methemoglobin 1.2 % (0.4-1.5); Oxygen Device VENT; Potassium Level - ABG 3.8 mmol/L (3.5-5.0); Total Hemoglobin 13.6 g/dL (12-16)
[2020-06-07 17:14] LABS: Troponin 5 2HR 86.55 ng/L (0-10)
[2020-06-07 17:18] LABS: ABG PCO2 46.2 mmHg (35-45); Alveolar-Arterial Oxygen Gradi 58.5 mmHg (5-10); Arterial Blood Gas Hematocrit 41.8 % (37-47); Base Excess ABG -12.3 mmol/L (-2.0-2.0); Blood Gas Sample Site Brachial, right; Carboxyhemoglobin 0.3 %THgb (0.4-20.1); HCO3 ABG 16.3 mmol/L (22-26); HGB O2 Sat 85.8 % (95-100); Oxygen Saturation ABG 87.1; PO2 ABG 64.1 mmHg (80.0-100.0)
[2020-06-07 17:20] LABS: ABG PH Result 7.16 (7.35-7.45)
[2020-06-07 17:29] LABS: Troponin 5 2HR Delta 15.55 ABS# (0-10)
--- NOTE | 2020-06-07 18:08 | PC.PHAR ---
Received 3rd republican order from ICU nurse relaying Dr. Tierney's wishes to add a bicarbonate drip on patient. The request was above standard available orders so pharmacy would have to enter. Called Dr. Tierney to get verbal via telephone to make sure exactly what was wanted. Pt is having issues with accu checks so he wanted to avoid dextrose if possible. After a few iterations and calculating tonicity we decided on d5w with 2 amps run over 24 hours.
--- NOTE | 2020-06-07 18:38 | PC.NUTR ---
Recommend resume oral diet and supplement if possible when respiratory status improved. If unable to resume oral diet and enteral nutrition is appropriate, recommend Pulmocare at 10 ml/hr, increasing by 10 ml/hr until goal rate of 40 ml/hr to provide 1440 kcal, 60 g protein, and 753.6 g free H20 to approach estimated nutritional needs. Recommend H20 flushes per MD discretion to approach fluid needs.
[2020-06-07] MEDS: propofol 1,000 MG/100 ML INJ 13.6 MG IV (18:40)
[2020-06-07 18:48] LABS: Glucose Point of Care 283 mg/dL (70-110)
[2020-06-07 18:48] LABS: Glucose Point of Care 392 mg/dL (70-110)
[2020-06-07] MEDS: remdesivir 100 MG in sodium chloride 0.9% (100 ml) 100 ML IV (18:59)
[2020-06-07 19:16] LABS: Lactate (Lactic Acid level) 2.6 mmol/L (0.5-2.2)
--- NOTE | 2020-06-07 19:24 | PC.NURSE ---
BIS/TOF 1600: 20/4 1700: 32/4 1800: 45/4
[2020-06-07 19:27] LABS: Anion Gap 13.8 (5-19); Blood Urea Nitrogen 66 mg/dL (8-23); Calcium 9.1 mg/dL (8.5-10.5); Carbon Dioxide 18 mmol/L (22-29); Chloride 118 mmol/L (98-107); Creatine Phosphokinase 170 U/L (26-192); Glucose 299 mg/dL (65-115); NT Pro B Type Natriuretic Pept 2084 pg/mL (0-125); Osmolality Calculated 332 mOsm/kg (285-295); Potassium 3.8 mmol/L (3.5-5.1); Sodium 146 mmol/L (136-145)
--- NOTE | 2020-06-07 19:27 | PC.NURSE ---
Jesus Beverly - Patient's son - [phone]
--- NOTE | 2020-06-07 19:29 | PC.NURSE ---
Alternate# for daughter davide: [phone]
--- NOTE | 2020-06-07 19:46 | ECG_ITS ---
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 Measurements Intervals [place] Rate: 89 P: [place]: QRS: 49 QRSD: 103 T: -39 QT: 319 QTc: 388 Interpretive Statements ATRIAL FIBRILLATION ST DEVIATION AND MODERATE T-WAVE ABNORMALITY, CONSIDER ANTERIOR ISCHEMIA [-0.1+ mV T WAVE IN V3/V4] ST DEVIATION AND MODERATE T-WAVE ABNORMALITY, CONSIDER INFERIOR ISCHEMIA [-0.1+ mV T WAVE IN II/aVF] Compared to ECG 06/07/2020 15:54:52 No significant changes Electronically Signed On 06-08-2020 10:50:58 CDT by Coty Salcido M.D. [id number]
[2020-06-07] MEDS: dexmedetomidine 400 MCG in sodium chloride 0.9% (100 ml) 100 ML 7.1 MCG IV (20:24)
[2020-06-07] MEDS: acetaminophen 325 mg Tablet 650 MG PO (20:36)
[2020-06-07 21:16] LABS: Troponin 5 6HR 99.23 ng/L (0-10)
[2020-06-07 21:20] LABS: Troponin 5 6HR Delta 28.23 ng/L (0-12)
[2020-06-07 21:28] LABS: Partial Thromboplastin Time 82.5 SECONDS (23.9-36.7)
[2020-06-08] VITALS (116 sets, daily range): BP systolic 77–144; BP diastolic 45–81; PULSE 64–133; RESP 16–33; TEMP 37.3; O2SAT 89–98
[2020-06-08] MEDS: ipratropium-albuterol 3 mL Neb INHALATION ×4 (03:14→20:02)
[2020-06-08 04:10] LABS: Basophils # 0.1 10^3/uL (0.0-0.1); Basophils % 0.3 %; Hematocrit 42.7 % (37.0-47.0); Hemoglobin 13.6 g/dL (11.5-15.3); Lymphocytes # 1.6 10^3/uL (0.8-4.8); Lymphocytes % 6.6 %; Mean Corpuscular HGB Conc 31.9 g/dL (30.0-36.0); Mean Corpuscular Hemoglobin 29.6 pg (28.0-34.0); Mean Platelet Volume 12.7 fL (7.4-10.4); Monocytes # 1.7 10^3/uL (0.2-0.9); Monocytes % 7.1 %; Neutrophils # 19.21 10^3/uL (1.8-7.7); Neutrophils % 81.8 %; Nucleated Red Blood Cells # 0.3 /100WBC; Nucleated Red Blood Cells % 1.1 %; Platelet Count 172 10^3/cmm (130-400); Red Blood Count 4.59 10^6/uL (4.1-5.3); Red Cell Distribution Width 13.7 % (12.1-15.1); White Blood Count 23.5 10^3/uL (4.0-10.0)
[2020-06-08 04:41] LABS: Alanine Aminotransferase 19 U/L (0-33); Albumin Level 2.2 g/dL (3.5-5.2); Alkaline Phosphatase 121 IU/L (35-105); Anion Gap 13.8 (5-19); Aspartate Amino Transferase 30 U/L (0-32); Blood Urea Nitrogen 78 mg/dL (8-23); Calcium 9.1 mg/dL (8.5-10.5); Carbon Dioxide 19 mmol/L (22-29); Chloride 116 mmol/L (98-107); Globulin 2.9 g/dL (1.3-4.6); Glucose 150 mg/dL (65-115); Osmolality Calculated 324 mOsm/kg (285-295); Potassium 4.8 mmol/L (3.5-5.1); Sodium 144 mmol/L (136-145); Total Bilirubin 0.4 mg/dL (0.15-1.2); Total Protein 5.1 g/dL (6.6-8.7)
[2020-06-08 04:52] LABS: Arterial Blood Gas Hematocrit 43.5 % (37-47); Base Excess ABG -12.6 mmol/L (-2.0-2.0); Blood Gas Allen Test Pos; Blood Gas Operator Identificat JB; Blood Gas Sample Site Radial, right; Blood Gas Sample Type Arterial; Blood Gas Tidal Volume 0.45; Oxygen Device VENT
[2020-06-08 04:53] LABS: ABG PCO2 79.5 mmHg (35-45); ABG PH Result 7.01 (7.35-7.45)
[2020-06-08 04:54] LABS: Partial Thromboplastin Time 154.7 SECONDS (23.9-36.7)
[2020-06-08 05:00] LABS: Slide Review Slide Review Perform
[2020-06-08] MEDS: insulin glargine 100 units/1 mL 10 UNIT SUBCUT ×2 (05:06→20:39)
--- NOTE | 2020-06-08 06:00 | XRR_ITS ---
PROCEDURE INFORMATION: Exam: XR Chest Exam date and time: 06/08/2020 2:28 AM Age: 75 years old Clinical indication: Other: Hypoxia; Patient HX: PT intubated TECHNIQUE: Imaging protocol: XR of the chest. Views: 1 view. COMPARISON: CR (CHEST, ) 06/07/2020 10:33 AM FINDINGS: Tubes, catheters and devices: An endotracheal tube is placed with its tip approximately 2 cm from the erik. Nasogastric tube is present with its tip directed to the distal stomach. The left internal jugular vein central venous line is present with its tip at the level of the superior cavoatrial junction. EKG leads overlie the chest. Lungs: There increased interstitial markings present appearing stable compared with yesterday's examination. Pleural spaces: Unremarkable. No pleural effusion. No pneumothorax. Heart/Mediastinum: Unremarkable. No cardiomegaly. Bones/joints: Unremarkable. XR/XR chest 1V portable [id number] IMPRESSION: 1. Endotracheal tube tip 2 cm from the erik. 2. Otherwise stable position of life support tubing. 3. Bilateral airspace disease again seen unchanged from yesterday's examination.
--- NOTE | 2020-06-08 06:38 | PC.NURSE ---
nimbex gtt used for ventilator compliance 1929 díaz 05/25 2029 díaz 05/25 2130 díaz 05/25 2230 díaz 05/25 2330 díaz 05/25 0030 díaz 04/24 0130tran 05/25 0230 díaz 05/25 0330 díaz 05/25 0430 díaz 04/24 0530 díaz 04/24
[2020-06-08 06:54] LABS: Digoxin 0.8 ng/mL (0.6-1.2)
[2020-06-08 07:19] LABS: Glucose Point of Care 138 mg/dL (70-110)
[2020-06-08 07:19] LABS: Glucose Point of Care 107 mg/dL (70-110)
[2020-06-08 07:19] LABS: Glucose Point of Care 96 mg/dL (70-110)
[2020-06-08 07:19] LABS: Glucose Point of Care 168 mg/dL (70-110)
[2020-06-08 07:19] LABS: Glucose Point of Care 118 mg/dL (70-110)
[2020-06-08 07:19] LABS: Glucose Point of Care 202 mg/dL (70-110)
[2020-06-08 07:19] LABS: Glucose Point of Care 144 mg/dL (70-110)
[2020-06-08 07:19] LABS: Glucose Point of Care 109 mg/dL (70-110)
[2020-06-08 07:19] LABS: Glucose Point of Care 104 mg/dL (70-110)
[2020-06-08 07:59] LABS: Glucose Point of Care 201 mg/dL (70-110)
[2020-06-08 09:17] LABS: C Reactive Protein 74.2 mg/L (0.0-4.9)
--- NOTE | 2020-06-08 09:20 | P.PN_ITS ---
Subjective Subjective: Interval history: Intubated, sedated, paralyzed. Vitals/I&O/Wt Last Vital Signs Temp 99.2 F 06/08/20 07:00 Pulse 97 06/08/20 09:02 Resp 20 H 06/08/20 08:56 BP 98/52 06/08/20 07:48 Pulse Ox 92 06/08/20 08:56 06/07/20 06/08/20 06/08/20 22:59 06:59 14:59 Intake Total 1092.070 / 1754.676 449.393 / 2204.069 6.05 / 6.05 Output Total 550 / 550 200 / 750 Balance 542.070 / 1204.676 249.393 / 1454.069 6.05 / 6.05 Physical Exam Const: GENERAL APPEARANCE: frail appearing NUTRITIONAL APPEARANCE: obese OTHER: Intubated, sedated, paralyzed. HENMT: COMMON NORMALS: oropharynx normal Neck/C-Spine: COMMON NORMALS: no JVD Resp: COMMON NORMALS: normal respiratory effort and clear to auscultation bilaterally EFFORT & INSPECTION: Yes tachypneic AUSCULTATION: clear to auscultation bilaterally and crackles (Mild crackles at bases.) Cardio: COMMON NORMALS: no JVD, regular rhythm, S1 normal heart sound present, S2 normal heart sound present and No murmurs present (Cardio) RHYTHM: regular rhythm HEART SOUNDS: S1 normal heart sound present and S2 normal heart sound present GI: COMMON NORMALS: Normal to inspection, nondistended, normoactive bowel sounds present, Soft to palpation and non-tender PALPATION: Yes Soft to palpation Extremity: COMMON NORMALS: no joint enlargement and no pedal edema Skin: COMMON NORMALS: no rashes or lesions noted GENERAL SKIN EXAM: no r ashes or lesions noted Urinary Catheter Management^: Blake: Cath Placed During This Visit: yes, but has since been removed by the nurse Reason for Continuing Indwelling Catheter: Accurate Measurement of Urinary Output in Critically Ill Patients Urinary Catheter Date of Insertion: 06/06/20 Urinary Catheter Time of Insertion: 22:49 Date Urinary Catheter Removed: 06/06/20 Time Urinary Catheter Discontinued: 22:49 Data : 06/08/20 03:53 06/08/20 03:53 Micro: Microbiology 06/07/20 18:50 Blood Culture - Preliminary Blood SPECIMEN COLLECTED 06/07/20 18:24 Blood Culture - Preliminary Blood SPECIMEN COLLECTED A&P Assessment and plan (1) COVID-19 virus infection: She had a difficult night. He had to increase FiO2 transiently to 100%, currently down to 80%. PEEP decreased to 8. Worsening metabolic and respiratory doses this morning. ABG 7.01/79.5/117/20. Multiple organ injury with moderate ARDS, kidney injury, encephalopathy, troponin elevation. Night team were unable to obtain CT scans (CTA abdomen pelvis, Noncon CT chest, head) last night. Pneumomediastinum does not appear to be expanded, in fact appears not detectable on x-ray this morning. Tidal volume increased slightly to 450. We are increasing respirate slightly to 22. We will pursue CT scans this morning. Will request nephrology consultation. She is weaned down on a number of sedatives overnight. I see she was transiently hypotensive as low as 70/45, although does not appear required initiation of pressor with blood pressure improvement with weaning down sedation. Currently only on fentanyl, Versed. We will go ahead and wean down paralytics. Continue Decadron, completed remdesivir. With worsening renal function for will not extend course. Continue antibiotics for superimposed bacterial pneumonia. Continue heparin drip. No VTE on duplex. Poor renal function, for now hold off on CT angiogram chest. Discussed with her granddaughter who is agreeable with plan. With persistent respiratory failure, ARDS, metabolic and respiratory stenosis with limitations on ventilation with possible pneumomediastinum, possible additional intra- abdominal process, worsening renal function, demand ischemia versus AMI, with history of CVA, baseline poor functional status prognosis unfortunately is not good. They are arranging for her son to come from [place], and then will further be discussing regarding goals of care. Status: Acute (2) Respiratory failure with hypoxia: As above. Status: Acute Qualifiers: Chronicity: acute Qualified Code(s): J96.01 - Acute respiratory failure with hypoxia (3) Altered mental status: Continue treatment of underlying conditions. Sedation for continued mechanical ventilation. We are weaning down paralytics. Reassess CT head. Status: Acute Qualifiers: Altered mental status type: unspecified Qualified Code(s): R41.82 - Altered mental status, unspecified (4) Acute cystitis: Completed antibiotic course. 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 Change aspirin to suppository. Other oral medications on hold for now. Status: Acute Additional A&P Information Abdominal tenderness: Obtain CT angiogram abdomen pelvis. Noted on 06/06, long time confused, grimacing on palpation reported, unable to provide details. Abdominal x-ray poor quality, but unremarkable. Right upper quadrant ultrasound not optimal quality, but no acute biliary pathology, status post cholecystectomy. Mildly prominent liver. Lactic acidosis. Discussed with family seeking additional imaging to assess for possibility of bowel ischemia. Sepsis due to COVID-19 infection plus UTI, possible superimposed bacterial pneumonia: As above. Thrombocytopenia: Improved. Currently down somewhat to 120. Monitor. Bone marrow suppression secondary to COVID-19. Acute kidney injury: Improving. Granddaughter reports history of trouble with kidneys. Possible CKD. Hypertension: Close to goal. DM - Sliding scale insulin Chronic back pain / opiods use DVT prophylaxis - SCDs- Lovenox Attestations Medical Necessity Statement*: Continue admission for assessment management of severe COVID-19, ARDS, hypoxic respiratory failure, mixed acidosis, multiple organ injury. Critical Care Time: In addition to noncritical issues 45 minutes critical care time spent on assessment management of respiratory failure, adjustment of mechanical ventilation, paralytic, assessment of hemodynamic status, worsening renal failure, metabolic acidosis, assessment for underlying causes, discussion with slot operations manager, nursing staff, respiratory therapist. Discussed with family. Coding Level of Care Code Acute [employer] Solutions Specialist for [facility] Fwd Exam Comprehensive Diagnoses COVID-19 virus infection U07.1 Respiratory failure with hypoxia J96.01 Chronicity: acute Altered mental status R41.82 Altered mental status type: unspecified Acute cystitis N30.00 Occipital stroke I63.9
[2020-06-08] MEDS: aspirin 325 mg Tablet PO (09:21)
[2020-06-08] MEDS: metoprolol tartrate 25 mg Tablet PO ×2 (09:21→20:30)
[2020-06-08 09:22] LABS: INR 1.58 (0.8-1.2)
[2020-06-08 09:24] LABS: Fibrinogen 330 mg/dL (174-498)
[2020-06-08] MEDS: dexamethasone 4 mg/mL INJ 6 MG IV (09:31)
[2020-06-08 09:32] LABS: Partial Thromboplastin Time 118.2 SECONDS (23.9-36.7)
[2020-06-08 09:33] LABS: D Dimer 12.01 ug/mIFEU (0-0.59)
[2020-06-08] MEDS: famotidine 20 mg/2 mL INJ IVP ×2 (09:34→20:51)
--- NOTE | 2020-06-08 11:39 | PM.CONSULT ---
Providers/Reason For Consult Consulting Physican/Specialty*: Nephrology Reason for Consult*: Eval for JEFF Attending Physician: Curly Tenorio History of Present Illness History of Present Illness Thank you for consultation, today I had the pleasure of reviewing this unfortunate 75 year old female for evaluation of JEFF. She initially presented back on 05/30/2020 with altered mental status, irritability, confusion. Initial CT head showed a septal infarct and right vertebral V1 occlusion. She was complaining of pain all over at the time. She was initiated on antibiotics for urinary tract infection. She subsequently developed persistent fevers and chills, she then ruled in for Covid pneumonitis. She is then been managed in the ICU since this time. Unfortunately she has developed progressive multisystem organ dysfunction and required intubation mechanical ventilation yesterday. This morning on the ABG she has no overt respiratory acidosis with no metabolic compensation. FiO2 transiently increased to 100% but has now come down a little to 80% and her PEEP is 8. Hemodynamically she has been soft but has not required vasopressor agents. From a nephrology perspective, on arrival his serum creatinine was 1.3 mg/dL, it has stayed roughly about this level until yesterday when creatinine increased to 1.8 and today up to 2.3 mg/dL. Her urine output this morning has been very poor, only 20 mL/h. If anything on physical examination she appears to be relatively dry at this time. Apart from the early IV contrast, she has no received further exposure to IV contrast. She is currently on vancomycin, Primaxin antibiotic coverage. Review of Systems General: Reports: ROS unobtainable due to medical condition Meds/Allergies Home Medications and Allergies Home Medications Medication Instructions Recorded Confirmed Last Taken Type amlodipine 5 mg PO BEDTIME 05/30/20 05/30/20 Unknown History cephalexin 500 mg PO TID 05/30/20 05/30/20 Unknown History famotidine 20 mg PO BID 05/30/20 05/30/20 Unknown History gabapentin 300 mg PO TID 05/30/20 05/30/20 Unknown History glyburide 5 mg PO BID 05/30/20 05/30/20 Unknown History hydrochlorothiazide 25 mg PO DAILY 05/30/20 05/30/20 Unknown History lisinopril 10 mg PO DAILY 05/30/20 05/30/20 Unknown History metformin 1,000 mg PO BID 05/30/20 05/30/20 Unknown History metoprolol succinate 50 mg PO DAILY 05/30/20 05/30/20 Unknown History oxycodone 10 mg PO Q4H PRN #18 tab 06/03/20 Unknown Rx Allergies Allergy/AdvReac Type Severity Reaction Status Date / Time No Known Allergies Allergy Verified 05/30/20 16:37 Current Medications Current Medications Generic Name Dose Route Start Last Admin Trade Name Freq PRN Reason Stop Dose Admin Acetaminophen 650 mg 05/31/20 12:58 06/07/20 20:36 Acetaminophen 325 Mg Tablet PO 650 mg Q6H PRN Administration MILD PAIN Albuterol/Ipratropium 3 ml 06/08/20 09:00 06/08/20 08:54 Ipratropium-Albuterol 3 Ml Neb INHALATION 3 ml Q6H.RESPIRATORY MACK Administration Aspirin 81 mg 05/30/20 09:00 06/01/20 08:35 Aspirin 81 Mg Ec Tablet PO 81 mg DAILY MACK Administration Aspirin 325 mg 06/07/20 13:30 06/08/20 09:21 Aspirin 325 Mg Tablet PO 325 mg DAILY MACK Administration Atorvastatin Calcium 40 mg 05/30/20 21:00 06/02/20 20:10 Atorvastatin 40 Mg Tablet PO 40 mg BEDTIME MACK Administration Clopidogrel Bisulfate 75 mg 05/30/20 09:00 06/01/20 08:34 Clopidogrel 75 Mg Tablet PO 75 mg DAILY MACK Administration Dexamethasone 6 mg 06/06/20 10:30 06/08/20 09:31 Dexamethasone 4 Mg/Ml Inj IV 6 mg DAILY MACK Administration Famotidine 20 mg 06/06/20 09:45 06/08/20 09:34 Famotidine 20 Mg/2 Ml Inj IVP 20 mg Q12H MACK Administration Vancomycin/PEG/NADA/Lysine/Water 1,500 mg in 300 mls @ 200 mls/hr 05/31/20 15:45 06/07/20 16:57 Vancocin IV Infused Q24H MACK Infusion Dexmedetomidine HCl 400 mcg/ 104 mls @ 0 mls/hr 06/06/20 08:30 06/08/20 05:46 Sodium Chloride IV 0 mcg/kg/hr .Q0M MACK 0 mls/hr Titration Protocol Per Protocol Imipenem/Cilastatin Sodium 500 100 mls @ 200 mls/hr 06/06/20 09:30 06/08/20 09:36 mg/ Sodium Chloride IV 200 mls/hr Q8H MACK Administration Protocol Fentanyl 1,000 mcg/ Sodium 100 mls @ 0 mls/hr 06/07/20 08:00 06/08/20 03:12 Chloride IV 80 mcg/hr .Q0M MACK 8 mls/hr Administration Protocol Per Protocol Propofol 1,000 mg in 100 mls @ 0 mls/hr 06/07/20 08:30 06/07/20 23:17 Diprivan IV 0 mcg/kg/min .Q0M MACK 0 mls/hr Titration Protocol Per Protocol Midazolam HCl 100 mg/ Sodium 100 mls @ 0 mls/hr 06/07/20 09:00 06/07/20 19:59 Chloride IV 2 mg/hr .Q0M MACK 2 mls/hr Titration Protocol Per Protocol Cisatracurium Besylate 100 mg/ 100 mls @ 0 mls/hr 06/07/20 14:00 06/08/20 07:36 Sodium Chloride IV 0.85 mcg/kg/min .Q0M MACK 4.6 mls/hr Titration Protocol Per Protocol Heparin Sodium/Sodium Chloride 25,000 unit in 500 mls @ 0 mls/hr 06/07/20 14:30 06/08/20 05:05 Heparin Drip IV 8.82 unit/kg/hr .Q0M MACK 16 mls/hr Titration Protocol Per Protocol Sodium Bicarbonate 100 meq/ 1,100 mls @ 45.833 mls/hr 06/07/20 19:00 06/07/20 18:37 Dextrose IV 06/08/20 18:59 45.8 mls/hr .Q24H ONE Administration Insulin Aspart 0 unit 06/07/20 08:00 06/08/20 07:26 Insulin Aspart 100 Unit/1 Ml SUBCUT 6 unit WM&BEDTIME MACK Administration Protocol Insulin Glargine 10 unit 06/06/20 21:00 06/08/20 05:06 Insulin Glargine 100 Units/1 Ml SUBCUT 10 unit QAM&BEDTIME MACK Administration Lisinopril 10 mg 05/30/20 09:00 06/01/20 08:35 Lisinopril 10 Mg Tablet PO 10 mg DAILY MACK Administration Lorazepam 0.5 mg 06/06/20 00:17 06/06/20 20:44 Lorazepam 2 Mg/Ml Inj 1 Ml IVP 0.5 mg Q12H PRN Administration ANXIETY Metoprolol Tartrate 25 mg 05/30/20 09:00 06/08/20 09:21 Metoprolol Tartrate 25 Mg Tablet PO 25 mg BID@0900,2100 MACK Administration Olanzapine 5 mg 06/05/20 08:14 06/06/20 22:49 Olanzapine 10 Mg Vial IM 5 mg ONCE PRN Administration AGITATION PFSH Acute PFSH: Medical History (Updated 06/07/20 @ 11:32 by Kirill Tierney MD) Arthritic gait Hip arthritis Diabetes Hypertension Surgical History Surgical history unknown Family History Other No pertinent family history Social History Smoking and tobacco status: unknown if ever smoked Alcohol intake: never Substance/Drug Use: never Lives independently: Yes Vitals/I&O/Wt Last Vital Signs Temp 99.2 F 06/08/20 07:00 Pulse 97 06/08/20 09:02 Resp 27 H 06/08/20 10:37 BP 98/52 06/08/20 07:48 Pulse Ox 92 06/08/20 10:37 06/07/20 06/08/20 06/08/20 22:59 06:59 14:59 Intake Total 1092.070 / 1754.676 449.393 / 2204.069 6.05 / 6.05 Output Total 550 / 550 200 / 750 Balance 542.070 / 1204.676 249.393 / 1454.069 6.05 / 6.05 Physical Exam Narrative: EXAM NARRATIVE: Constitutional: Sedated and vented HEENT: Wet mucosa, no jvp, non icteric Lungs: Bilaterally clear without discernible wheeze, rales in all lung zones CVS: S1 S2, no murmurs Abdo: Soft, BS ok Ext 4: Minimal edema, peripheral perfusion with no cyanosis Neurological: Sedated and vented Urinary Catheter Management^: Blake: Cath Placed During This Visit: yes, but has since been removed by the nurse Reason for Continuing Indwelling Catheter: Accurate Measurement of Urinary Output in Critically Ill Patients Urinary Catheter Date of Insertion: 06/06/20 Urinary Catheter Time of Insertion: 22:49 Date Urinary Catheter Removed: 06/06/20 Time Urinary Catheter Discontinued: 22:49 Data Micro: Micro: Microbiology 06/07/20 13:45 Sputum Culture - P reliminary Sputum - Endotrac heal Wash 06/07/20 18:50 Blood Culture - Pr eliminary Blood SPECIMEN [facility] REE 06/07/20 18:24 Blood Culture - Pr eliminary Blood SPECIMEN [facility] REE A&P Additional A&P Information 1. Acute renal dysfunction Differential diagnosis for this includes sepsis and Covid related glomerulopathy with associated acute tubular dysfunction. Acute interstitial nephritis from antibiotic exposure is also possible as well as acute tubular dysfunction from vancomycin exposure. She may also be simply prerenal. I requested urinalysis with microscopy, fractional excretion of sodium and urea, urine eosinophils. We will get CPK level, TSH, uric acid. She is current receiving some gentle IV hydration, will continue this, however, IV fluid is going to be limited by her pulmonary status. No indication for dialysis today, however, she is a very high risk of requiring this over the next 24-48 hours. Avoid usual nephrotoxic agents Strict ins and outs 2. Sepsis, lactic acidosis Case discussed with Dr Tenorio, we appreciate the need for additional abdominal imaging with IV contrast. We discussed the risk and benefit of doing so, obviously this does increase her risk of further deterioration of renal function, however, we may be somewhat in the dark diagnostically without imaging information. I would recommend gentle IV fluid for 2 hours before and after the CT contrast exposure. Currently she is on combination antibiotic therapy Cultures noted, so far positive only for E. coli in the urine 3. Electrolytes She has a partially compensated respiratory acidosis seen on ABG, there is also an underlying small anion gap metabolic acidosis. Ventilator changes being made, she is currently on a bicarb infusion. 4. Covid pneumonitis Vent dependent respiratory failure, management per ICU team Status post dexamethasone, currently on combination antibiotic therapy Repeat ABG pending Her prognosis is obviously very guarded at this time, ongoing discussions with family members regarding goals of care. Thank you for consultation, as always it is a pleasure to follow these cases with you. Steven Tolbert MD Nephrology [phone] Patient seen and examined via telemedicine, with the assistance of the bedside RN > 25 min spent in evaluation and mgmt of patient Consult Attestations Medical Necessity Statement: eval for renal failure Coding Level of Care Code Acute It Systems Analyst Consultant for [facility]
--- NOTE | 2020-06-08 11:47 | CTR_ITS ---
PROCEDURE INFORMATION: Exam: CT Abdomen And Pelvis Without Contrast Exam date and time: 06/08/2020 12:25 PM Age: 75 years old Clinical indication: Fever; Patient HX: Sepsis, covid+ intubated; Additional info: Sepsis, metabolic adidosis, recent UTI TECHNIQUE: Imaging protocol: Computed tomography of the abdomen and pelvis without contrast. Sagittal and coronal reformatted images were created and reviewed. Radiation optimization: All CT scans at this facility use at least one of these dose optimization techniques: automated exposure control; mA and/or kV adjustment per patient size (includes targeted exams where dose is matched to clinical indication); or iterative reconstruction. COMPARISON: CT abdomen pelvis w con* [id number] 05/30/2020 12:53 AM RADIATION DOSE METRICS: Total DLP (mGy-cm): 1933.29 FINDINGS: Limitations: Evaluation of solid organs and vasculature is limited without intravenous contrast. Tubes, catheters and devices: There is an enteric tube with the tip in the distal body of the stomach. Liver: The liver is unremarkable. Gallbladder and bile ducts: Stable findings consistent with a previous cholecystectomy. No biliary ductal dilatation. Pancreas: The pancreas is unremarkable. No pancreatic ductal dilatation. Spleen: The spleen is unremarkable. Adrenal glands: The right adrenal gland is unremarkable. Stable 1.3 x 1.6 cm mass in the left adrenal gland (series 2, image 70). Areas of macroscopic fat are seen in the mass, consistent with the myelolipoma. Kidneys and ureters: Stable non-obstructing stone in the right kidney measuring 1.0 cm. Stable mild bilateral renal atrophy. Subcentimeter hypodense focus in the right kidney that is too small to characterize, however likely represents a small cyst. Mild nonspecific inflammatory changes around both kidneys, not unexpected in a patient this age group. The right and left ureters are unremarkable. Stomach and bowel: Numerous diverticula in the descending colon and sigmoid colon. No evidence for diverticulitis. Nonspecific air-fluid levels present in the proximal colon. The stomach is collapsed, which can limit evaluation. No focal abnormality in the stomach otherwise. No acute abnormality in the small bowel. Appendix: The appendix is visualized and is unremarkable. No findings to suggest acute appendicitis. Intraperitoneal space: No free intraperitoneal air. No ascites. No loculated fluid collections to suggest an abscess. Vasculature: Stable moderate atherosclerotic calcifications in the visualized arteries. No evidence for aortic aneurysm. Lymph nodes: No lymphadenopathy. Urinary bladder: No hydroureteronephrosis there is a Blake catheter in the bladder. Diffuse, mild wall thickening of the bladder. Reproductive: The uterus is unremarkable. Calcifications in both right and left ovaries, possibly due to sequela from prior involuting cysts. Bones/joints: Moderate degenerative changes at both the right and left hips. Mild degenerative changes of the right and left sacroiliac joints. Multilevel degenerative changes of varying severity in the visualized spine. Mild levoscoliosis in the visualized spine. Soft tissues: .No acute abnormality in the extra-abdominal soft tissues. CT/CT kidney stone [id number] IMPRESSION: 1. Diffuse, mild wall thickening of the bladder, suspicious for cystitis. Recommend correlation with laboratory findings. There is a Blake catheter in the bladder. 2. Stable left adrenal myelolipoma. 3. Stable nonobstructing right renal stone. 4. Descending colon and sigmoid colon diverticulosis. No evidence for diverticulitis. 5. Incidental/nonacute findings are listed in the report. COMMENTS: Consistent with the [employer]'s Incidental Findings Committee white paper (J Am Federico Radiol 2018): Any incidental renal lesion less than 1 cm or classified as too small to characterize, or any incidental cystic renal lesion characterized as simple-appearing, is likely benign. No follow-up imaging is recommended for these lesions per consensus recommendations based on imaging criteria. Radiation Dose CTDIVOL = (mGy): DLP = 1933.29 (mGy-cm)
[2020-06-08 12:03] LABS: Glucose Point of Care 227 mg/dL (70-110)
[2020-06-08] MEDS: FUROsemide 10 mg/mL SDV 4mL 40 MG IVP (12:04)
[2020-06-08] MEDS: sodium chloride 0.45% 1,000 ML 30 ML IV (12:17)
--- NOTE | 2020-06-08 12:46 | P.PN_ITS ---
Subjective Subjective: Interval history: -Clinically deteriorating -Still on ventilator and saturating 92% on 80% FiO2 -ABG showed significant combined metabolic and respiratory acidosis 7.0 on CMV 90%/450//16 -decreased FiO2 to 80% and increased RR to 22 -Worsening urine output and renal functions -Also noted fever spikes yesterday, worsening leukocytosis and DIC on labs -Still could not get CT abdomen pelvis and CT chest due to worsening renal functions and critical condition of patient and COVID-19 isolation Vitals/I&O/Wt Last Vital Signs Temp 99.2 F 06/08/20 07:00 Pulse 97 06/08/20 09:02 Resp 22 H 06/08/20 11:38 BP 98/52 06/08/20 07:48 Pulse Ox 95 06/08/20 11:38 06/07/20 06/08/20 06/08/20 22:59 06:59 14:59 Intake Total 1092.070 / 1754.676 449.393 / 2204.069 106.05 / 106.05 Output Total 550 / 550 200 / 750 Balance 542.070 / 1204.676 249.393 / 1454.069 106.05 / 106.05 Physical Exam Narrative: EXAM NARRATIVE: EXAM NARRATIVE: PHYSICAL EXAM: General: lying in bed, sedated and intubated. HEENT:NCAT, PERRLA, EOMI Neck: Supple Lungs: Cl bibasilar crepitations Heart: s1/s2, RRR Abd: Obese distended, no organomegaly left internal jugular line BS positive Extremities: No edema HEEL COVER SOFTENER: sedated and limited HEEL COVER SOFTENER exam possible. SKIN: no rash LDA: # CVC: Left IJ 06/07/2020 # Blake: 06/06/2020 Urinary Catheter Management^: Blake: Cath Placed During This Visit: yes, but has since been removed by the nurse Reason for Continuing Indwelling Catheter: Accurate Measurement of Urinary Output in Critically Ill Patients Urinary Catheter Date of Insertion: 06/06/20 Urinary Catheter Time of Insertion: 22:49 Date Urinary Catheter Removed: 06/06/20 Time Urinary Catheter Discontinued: 22:49 Data : 06/08/20 03:53 06/08/20 03:53 Other Labs: Laboratory Results WBC 23.5 10^3/uL (4.0-10.0) H 06/08/20 03:53 RBC 4.59 10^6/uL (4.1-5.3) 06/08/20 03:53 Hgb 13.6 g/dL (11.5-15.3) 06/08/20 03:53 Hct 42.7 % (37.0-47.0) 06/08/20 03:53 MCV 93.0 fL (81-99) 06/08/20 03:53 MCH 29.6 pg (28.0-34.0) 06/08/20 03:53 MCHC 31.9 g/dL (30.0-36.0) 06/08/20 03:53 RDW 13.7 % (12.1-15.1) 06/08/20 03:53 Plt Count 172 10^3/cmm (130-400) 06/08/20 03:53 MPV 12.7 fL (7.4-10.4) H 06/08/20 03:53 Neut % (Auto) 81.8 % 06/08/20 03:53 Lymph % (Auto) 6.6 % 06/08/20 03:53 [place] % (Auto) 7.1 % 06/08/20 03:53 Eos % (Auto) 0.0 % 06/08/20 03:53 Baso % (Auto) 0.3 % 06/08/20 03:53 Neut # (Auto) 19.21 10^3/uL (1.8-7.7) H 06/08/20 03:53 Lymph # (Auto) 1.6 10^3/uL (0.8-4.8) 06/08/20 03:53 [place] # (Auto) 1.7 10^3/uL (0.2-0.9) H 06/08/20 03:53 Eos # (Auto) 0.0 10^3/uL (0.0-0.8) 06/08/20 03:53 Baso # (Auto) 0.1 10^3/uL (0.0-0.1) 06/08/20 03:53 Nucleated RBC % (auto) 1.1 % 06/08/20 03:53 Nucleated RBCs # 0.3 /100WBC 06/08/20 03:53 PT 19.50 SECONDS (12.1-14.9) H 06/08/20 08:32 INR 1.58 (0.8-1.2) H 06/08/20 08:32 APTT 97.0 SECONDS (23.9-36.7) H 06/08/20 11:45 Fibrinogen 330 mg/dL (174-498) 06/08/20 08:32 Fibrin Degrad Products Pos, >=40 ug/mL (NEG) H 06/08/20 08:32 D-Dimer 12.01 ug/mIFEU (0-0.59) H 06/08/20 08:32 Specimen Type Arterial 06/08/20 04:48 Sample Site Radial, right 06/08/20 04:48 ABG pH 7.01 (7.35-7.45) L* 06/08/20 04:48 ABG pCO2 79.5 mmHg (35-45) H* 06/08/20 04:48 ABG pO2 117.0 mmHg (80.0-100.0) H 06/08/20 04:48 ABG HCO3 20.0 mmol/L (22-26) L 06/08/20 04:48 ABG O2 Saturation 87.1 06/07/20 16:47 ABG Base Excess -12.6 mmol/L (-2.0-2.0) L 06/08/20 04:48 Moustapha Test Pos 06/08/20 04:48 A-a O2 Gradient 58.5 mmHg (5-10) H 06/07/20 16:47 Hematocrit 43.5 % (37-47) 06/08/20 04:48 Hgb O2 Saturation 85.8 % (95-100) L 06/07/20 16:47 Carboxyhemoglobin 0.3 %THgb (0.4-20.1) L 06/07/20 16:47 Methemoglobin 1.2 % (0.4-1.5) 06/07/20 16:47 Total Hemoglobin 13.6 g/dL (12-16) 06/07/20 16:47 Sodium 147.0 mmol/L (131-143) H 06/07/20 16:47 Potassium 3.8 mmol/L (3.5-5.0) 06/07/20 16:47 Glucose 395.0 mg/dL (70-115) H 06/07/20 16:47 Ionized Calcium 1.5 mmol/L (1.1-1.4) H 06/07/20 16:47 O2 Delivery Device Vent 06/08/20 04:48 Mechanical Rate 16.0 06/07/20 16:47 FiO2 90.0 % 06/08/20 04:48 Tidal Volume 0.45 06/08/20 04:48 PEEP 8.0 cmH20 06/08/20 04:48 Laundry Tech ID Obed 06/08/20 04:48 Sodium 144 mmol/L (136-145) 06/08/20 03:53 Potassium 4.8 mmol/L (3.5-5.1) 06/08/20 03:53 Chloride 116 mmol/L (98-107) H 06/08/20 03:53 Carbon Dioxide 19 mmol/L (22-29) L 06/08/20 03:53 Anion Gap 13.8 (5-19) 06/08/20 03:53 BUN 78 mg/dL (8-23) H 06/08/20 03:53 Creatinine 2.3 mg/dL (0.5-0.9) H 06/08/20 03:53 GFR Calculation Not Reportable 06/08/20 03:53 Glucose 150 mg/dL (65-115) H 06/08/20 03:53 POC Glucose 227 mg/dL (70-110) H 06/08/20 11:16 Estimat Average Glucose 166 05/31/20 05:49 Hemoglobin A1c 7.4 % (4.0-6.0) H 05/31/20 05:49 Calculated Osmolality 324 mOsm/kg (285-295) H 06/08/20 03:53 Lactic Acid 1.7 mmol/L (0.5-2.2) 06/08/20 11:55 Lactate 2.6 mmol/L (0.5-2.2) H 06/07/20 18:24 Calcium 9.1 mg/dL (8.5-10.5) 06/08/20 03:53 Magnesium 1.9 mg/dL (1.7-2.3) 06/01/20 06:38 Ferritin 780 ng/mL (15-150) H 06/01/20 06:38 Total Bilirubin 0.4 mg/dL (0.15-1.2) 06/08/20 03:53 AST 30 U/L (0-32) 06/08/20 03:53 ALT 19 U/L (0-33) 06/08/20 03:53 Alkaline Phosphatase 121 IU/L (35-105) H 06/08/20 03:53 Creatine Kinase 170 U/L (26-192) 06/07/20 18:24 Troponin T Baseline 71 ng/L (0-10) H 06/07/20 14:35 Troponin T 120 Minute 86.55 ng/L (0-10) H 06/07/20 16:10 Delta Troponin T 15.55 ABS# (0-10) H* 06/07/20 16:10 Troponin T Hi Sens 6Hr 99.23 ng/L (0-10) H 06/07/20 20:25 Troponin T Hi Sens 6Hr Delta 28.23 ng/L (0-12) H* 06/07/20 20:25 C-Reactive Protein 74.2 mg/L (0.0-4.9) H 06/08/20 08:32 NT-Pro-B Natriuret Pep 2084 pg/mL (0-125) H 06/07/20 18:24 Total Protein 5.1 g/dL (6.6-8.7) L 06/08/20 03:53 Albumin 2.2 g/dL (3.5-5.2) L 06/08/20 03:53 Globulin 2.9 g/dL (1.3-4.6) 06/08/20 03:53 Lipase 32 U/L (13-60) 05/29/20 23:40 Procalcitonin 0.50 ng/mL (0-0.5) 06/01/20 06:38 Urine Color Yellow (Yellow) 05/30/20 02:00 Urine Appearance Clear (CLEAR) 05/30/20 02:00 Urine pH 5 (5-7) 05/30/20 02:00 Ur Specific [place] 1.015 (1.005-1.030) 05/30/20 02:00 Urine Protein Trace (Negative) 05/30/20 02:00 Urine Glucose (UA) 2+ (Normal) 05/30/20 02:00 Urine Ketones Negative (Negative) 05/30/20 02:00 Urine Blood 3+ (Negative) H 05/30/20 02:00 Urine Nitrate Negative (Negative) 05/30/20 02:00 Urine Bilirubin Neg (Negative) 05/30/20 02:00 Urine Urobilinogen Norm mg/dL (Negative) 05/30/20 02:00 Ur Leukocyte Esterase Trace (Negative) H 05/30/20 02:00 Urine RBC 5-10 /hpf (0-2) H 05/30/20 02:00 Urine WBC 25-40 /hpf (0-5) H 05/30/20 02:00 Ur Squamous Epith Cells 0-4 /hpf (0-5) H 05/30/20 02:00 Amorphous Sediment Not Reportable 05/30/20 02:00 Urine Bacteria 3+ /hpf (NONE) H 05/30/20 02:00 Vancomycin Trough 12.9 ug/mL (10-15) 06/05/20 15:40 Digoxin 0.8 ng/mL (0.6-1.2) 06/08/20 03:53 Serum Ketones Negative (Negative) 06/07/20 14:35 SARS-CoV-2 Ag (Rapid) Positive (Negative) H 05/31/20 17:[address] 05/29/20 23:03 IMPRESSION: Chronic left occipital infarct. Radiation Dose CTDIVOL = (mGy): DLP = 2005.07 (mGy-cm) Hip/Pelvis X-Ray 05/29/20 23:03 IMPRESSION: 1. No RIGHT hip fracture identified. Pelvis CT performed on the same day was also reviewed and no fracture is evident by CT of the pelvis. If concern for hip fracture persists consider dedicated RIGHT hip CT. 2. Severe RIGHT hip joint osteoarthritis. Abdomen/Pelvis CT 05/29/20 23:26 IMPRESSION: 1. No acute intra-abdominal findings. 2. Severe degenerative disease at the right hip. 3. Ill-defined opacity in the left lower lobe. Atelectasis versus infection. 4. 15 mm left adrenal nodule. Consider 12 month follow-up adrenal CT. (Dylan Brown, ACR White Paper, 2017) 5. Incidental findings above. Radiation Dose CTDIVOL = (mGy): DLP = 1197.29 (mGy-cm) Head/Neck CTA 05/29/20 23:33 IMPRESSION: 1. Widely patent carotid arteries. 2. Occluded right vertebral artery V1 segment, and intermittently occluded proximal to mid right vertebral artery V2 segments. 3. Indeterminate partially solid appearing 1.7 cm left thyroid lobe nodule, recommend ultrasound follow-up. 4. Mild apical ground-glass nonspecific lung opacities. 5. Mild mediastinal adenopathy. COMMENTS: Consistent with the [employer]'s Incidental Findings Committee white paper (J Am Federico Radiol 2015): In patients aged 35 years and older with an incidental thyroid nodule equal to or greater than 1.[address], MRI or extrathyroidal US, further evaluation with dedicated thyroid US is recommended for patients with normal life expectancy and without comorbidities. For smaller nodules without suspicious features, no further evaluation or follow up is recommended. REFERENCES: NASCET CRITERIA. The degree of internal carotid artery stenosis is based on NASCET criteria. Normal is no stenosis. Mild is less than 50% stenosis. Moderate is 50-69% stenosis. Severe is 70% to 99% stenosis. Total occlusion is no detectable patent lumen. Radiation Dose CTDIVOL = (mGy): DLP = 1431.02~1432.01 (mGy-cm) Abdomen X-Ray 06/06/20 10:33 Impression: Negative KUB with a notation that the patient's motion and breathing obscures detail. Abdomen Ultrasound 06/06/20 10:34 IMPRESSION: 1. Technically very limited evaluation of the abdominal structures due to body habitus. 2. Gallbladder not identified. History of prior cholecystectomy. 3. Mildly prominent liver. Venous Duplex 06/07/20 09:40 IMPRESSION: No evidence of deep vein thrombosis. Chest X-Ray 06/08/20 06:00 IMPRESSION: 1. Endotracheal tube tip 2 cm from the erik. 2. Otherwise stable position of life support tubing. 3. Bilateral airspace disease again seen unchanged from yesterday's examination. Micro: Microbiology 06/08/20 11:55 Blood Culture - Preliminary Blood SPECIMEN COLLECTED 06/08/20 11:45 Blood Culture - Preliminary Blood SPECIMEN COLLECTED 06/07/20 13:45 Gram Stain - Final Sputum - Endotracheal Wash Sputum Culture - Preliminary 06/07/20 18:50 Blood Culture - Preliminary Blood SPECIMEN COLLECTED 06/07/20 18:24 Blood Culture - Preliminary Blood SPECIMEN COLLECTED A&P Assessment and plan (1) Respiratory failure with hypoxia: Status: Acute Qualifiers: Chronicity: acute Qualified Code(s): J96.01 - Acute respiratory failure with hypoxia (2) COVID-19 virus infection: Status: Acute (3) Occipital stroke: Status: Acute (4) Altered mental status: Status: Acute Qualifiers: Altered mental status type: unspecified Qualified Code(s): R41.82 - Altered mental status, unspecified (5) UTI (urinary tract infection), bacterial: Status: Acute (6) Diabetes: Status: Acute Qualifiers: Diabetes mellitus type: type 2 Diabetes mellitus senior care insulin use: unspecified terminal make up operator insulin use status Diabetes mellitus complication status: with other specified complication Qualified Code(s): E11.69 - Type 2 diabetes mellitus with other specified complication (7) Pneumomediastinum: Status: Acute (8) Atrial fibrillation with RVR: Status: Acute (9) DIC (disseminated intravascular coagulation): Status: Acute (10) Renal failure, acute: Status: Acute (11) Suspected pulmonary embolism: Status: Acute ASSESSMENT/PLAN: Overall: 75-year-old female with past medical history of diabetes, hypertension initially admitted to hospital for further AMS due to E. coli urosepsis, also positive for COVID-19 pneumonia-currently transferred to ICU and intubated for worsening respiratory failure. Currently patient has combined metabolic and respiratory acidosis with DIC possible secondary to unknown source of infection- possible intra-abdominal/pyelonephritis NEURO: # Altered mental status secondary to Ecoli Urosepsis & Covid 19 Pneumonia # Chronic left occipital infarct on CT imaging with chronic left hemiparesis # Occluded right vertebral artery V1 segment, and intermittently occluded proximal to mid right vertebral artery V2 segments on Neck CTA -On aspirin, Plavix, Lipitor - fentanyl drip 80 MCG, Versed drip 1 mg, mg, Precedex 0.7 mg, off propofol drip 50 -On Nimbex-Taper off paralytic today PULM: #Acute hypoxic respiratory failure secondary to COVID-19 pneumonia #Suspected pulmonary embolism #Pneumomediastinum- --Clinically deteriorating -Still on ventilator and saturating 92% on 80% FiO2 -ABG showed significant combined metabolic and respiratory acidosis 7.0 1/117/20 on CMV 90%/450/8/16 -decreased FiO2 to 80% and increased RR to 22 -Today morning Chest x-ray did not show pneumomediastinum -Patient to get CTA to rule out PE and pneumomediastinum; but due to worsening renal function could not get CT with contrast; We will get CT without contrast - patient on Lovenox 90 mg SC every 12 -Worsening D-dimer and CRP -Currently on remdesivir and dexamethasone 6 mg IV daily -Currently on vancomycin and imipenem CVS: #Sinus tachycardia with intermittent A. fib with respiratory distress-rule out PE #Hypertension -Currently hemodynamically stable-not on pressors -off digoxin due to worsening renal function -Also on metoprolol 25 mg p.o. twice daily and 2.5 mg IV every 4 hour as needed -held lisinopril 10 mg p.o. daily -Sepsis management as below -Echo done report pending GI: #Diet-n.p.o. for now #GI prophylaxis: Famotidine 20 mg IV every 12 hours as patient is on steroids #improving LFTs #Distended obese abdomen with tenderness prior to intubation - AXR and Abd USG:Technically very limited evaluation of the abdominal structures due to body habitus. -Plan is to get CT abdomen pelvis at least without contrast to see for any evidence of pyelonephritis -Avoid hepatotoxic medications -Monitor LFTs RENAL: #Acute kidney [id number] related/sepsis related ATN -Creatinine 2.8- unclear basline -Worsening renal functions and urine output -I/O/N-10.2 L / 10.2 L/0 since admission, last 24 hours 2.2 L/750 mL / +1.4 L -Lasix 40 mg 1 dose today -Avoid nephrotoxins -Monitor renal functions and electrolytes and supplement to keep potassium > 4 and mg > 2 -No immediate indication for hemodialysis; nephrology consulted and appreciate recommendations HEM: -H&H stable -Plts 120 today-trend -Coagulation profile-suggestive of DIC with increased FDP -DVT prophylaxis: Lovenox -Venous Doppler-no evidence of DVT -Patient is already on Lovenox therapeutic dose for PE/DVT ENDO: #Diabetes -Uncontrolled sugars likely due to steroids -Serum ketones negative, off insulin drip, FSBS 96-227 over last 24 hours -currently on Lantus 10 mg twice daily and continue scale coverage -Check every 6 hours ID: #Severe sepsis secondary to COVID pna and E. coli UTI -Worsening urine output and renal functions -Also noted fever spikes yesterday, worsening leukocytosis and DIC on labs -Sent for repeat cultures and procalcitonin 0.81; lactic acid 1.4 -We will obtain CT abdomen pelvis -to rule out intra-abdominal source/pyelonephritis; cannot do with contrast due to worsening renal functions -Urine cultures positive for E. coli resistant to quinolones -Currently on vancomycin and imipenem until repeat culture results Code Status: Full code Disposition: Remains in ICU Critically ill: Remains critically ill MD discussed with: Dr. Landaverde, RN and RT taking care of the patient Family: Updated ICU CHECKLIST: Problem list updated Verbal orders reviewed and signed Analgesia: N/A Glycemic Control: Lantus and insulin scale coverage Nutrition: N.p.o. for now Restraint Renewal (within 24 hrs): Yes Ulcer Prophylaxis: H2 natalya Chemical Thromboprophylaxis: Prophylaxis: Lovenox Mechanical Thromboprophylaxis: SCDs Need for Blake catheter: Input output monitoring Need for Central line: Yes for multiple medications and infusions and possible paralytic and pressors Case discussed with RN, consultants and family or surrogate(s) and Dr. Landaverde, Spoke to granddaughter and she informed that health power of state's attorney is patient's son. Called patient's son Mr. Jesus Beverly and updated patient's clinical condition. Currently patient is in [place] on the road towards [facility] to drop his cargo. After that, he reported to drive back to [place], Until then he wants to keep his mother alive. He wished to get updates about any change in patient's clinical condition-if unable to reach him due to poor cell phone pediatric occupational therapist signals-he wanted us to call patient's granddaughter to make decisions for the patient. Attestations Medical Necessity Statement*: E. coli UTI and COVID-19 pneumonia related to sepsis leading to DIC, renal failure. Patient needs ICU close monitoring for being on mechanical ventilation and possible hemodialysis her worsening renal functions. Time Spent in Patient Care: Greater than 35 minutes (>than 50% of time spent in counselling and/or direct pt care on unit) . Critical Care Time: The high probability of a clinically significant, sudden or life threatening deterioration of the patient's [respiratory, renal] system(s) required my full and direct attention, intervention and personal management. The critical care time is as shown. This time is in addition to time spent performing any reported procedures but includes the following: [x] Data and vital sign review and interpretation [x] Patient assessment, examination and intervention [x] Documentation [x] Medication orders and management Critical Care Time (min): 45 Coding Level of Care Code Established Pt Acute Electronics Technology Instructor for Carmen Spicer Patient Type Established History Comprehensive Exam Comprehensive Medical Decision Making High Complexity Diagnoses Respiratory failure with hypoxia J96.01 Chronicity: acute COVID-19 virus infection U07.1 Occipital stroke I63.9 Altered mental status R41.82 Altered mental status type: unspecified UTI (urinary tract infection), bacterial N39.0; A49.9 Diabetes E11.69 Diabetes mellitus type: type 2 Diabetes mellitus terminal make up operator insulin use: unspecified terminal make up operator insulin use status Diabetes mellitus complication status: with other specified complication Pneumomediastinum J98.2 Atrial fibrillation with RVR I48.91 DIC (disseminated intravascular coagulation) D65 Renal failure, acute N17.9 Suspected pulmonary embolism R09.89 Time Spent (min) 45
[2020-06-08 12:48] LABS: Lactic Sepsis W/Reflex 1.7 mmol/L (0.5-2.2)
[2020-06-08 12:57] LABS: Thyroid Stimulating Hormone 0.02 uIU/mL (0.27-4.20); Uric Acid 7.8 mg/dL (2.4-5.7)
[2020-06-08 12:59] LABS: Procalcitonin 0.81 ng/mL (0-0.5)
[2020-06-08 13:16] LABS: Creatine Phosphokinase 917 U/L (26-192)
--- NOTE | 2020-06-08 13:32 | PC.SOCIAL ---
IMM not given. Did not update pt/family IMM. Pt is still intubated at this time. Pt is not w/n 48hrs of discharging.
--- NOTE | 2020-06-08 13:46 | CTR_ITS ---
PROCEDURE INFORMATION: Exam: CT Head Without Contrast Exam date and time: 06/08/2020 10:26 AM Age: 75 years old Clinical indication: Altered mental status/memory loss; Confusion or disorientation; Patient HX: AMS - intubated - covid+ TECHNIQUE: Imaging protocol: Computed tomography of the head without contrast. Sagittal and coronal reformatted images were created and reviewed. Radiation optimization: All CT scans at this facility use at least one of these dose optimization techniques: automated exposure control; mA and/or kV adjustment per patient size (includes targeted exams where dose is matched to clinical indication); or iterative reconstruction. COMPARISON: CT head wo con* [id number] 05/30/2020 12:46 AM RADIATION DOSE METRICS: Total DLP (mGy-cm): 892.58 FINDINGS: Brain: No acute intracranial hemorrhage. Interval development of moderate/large of decreased density and loss of etienne-white matter differentiation in the left frontal lobe, left parietal lobe, and left parietooccipital region. Similar smaller areas in the right and left cerebellar hemispheres. Small areas of decreased density are seen in the right frontal lobe deep white matter and right parietal lobe etienne matter as well. Findings are suspicious for multiple acute infarcts. Stable moderate area of encephalomalacia consistent with an old infarct in the left occipital lobe. Mildly hyperdense extra-axial mass over the right frontal lobe is stable in size measuring 1.4 x 0.7 cm (series 2, image 34). Findings suggest a small meningioma. No midline shift. No extra-axial fluid collections. Stable mild cerebral volume loss. Cerebral ventricles: No hydrocephalus. Bones/joints: No acute fracture. Paranasal sinuses: Visualized paranasal sinuses are clear. Mastoid air cells: Moderate amount of fluid in the right and left mastoid air cells. Orbital cavity: No acute abnormality in the visualized orbits. Vasculature: Atherosclerotic changes in the visualized arteries. Soft tissues: No acute abnormality of the extracranial soft tissues. CT/CT head wo con* [id number] IMPRESSION: 1. Interval development of findings suspicious for acute infarcts ranging in size from small to moderate/large in the right and left frontal lobes, right and left parietal lobes, and right and left cerebellar hemispheres. 2. Stable moderate area of encephalomalacia consistent with an old infarct in the left occipital lobe. 3. Stable findings suspicious for a small right frontal meningioma. 4. Moderate amount of fluid in the right and left mastoid air cells. Radiation Dose CTDIVOL = (mGy): DLP = 892.58 (mGy-cm)
[2020-06-08 14:33] LABS: Specific Gravity, Urine 1.015 (1.005-1.030); Urine Appearance SL Hazy (CLEAR); Urine Color Straw (Yellow); pH Urine 5 (5-7)
[2020-06-08 14:34] LABS: Add Urine Culture? No; Bacteria Urine 1+ /hpf; Bilirubin Urine Neg (Negative); Blood Urine 3+ (Negative); Glucose Urine UA Norm (Normal); Ketones Urine Negative (Negative); Leukocyte Esterase Urine Negative (Negative); Mucus Urine TRACE /hpf; Nitrate Urine Negative (Negative); Protein Urine Neg (Negative); Squamous Epithelial Cell Urine 0-4 /hpf (0-5); Urobilinogen Urine Norm (Negative); WBC Urine 0-4 /hpf (0-5)
[2020-06-08 14:58] LABS: Creatinine Urine, Random 31 mg/dL (28-217)
[2020-06-08 15:04] LABS: Eosinophil Urine No Eosinophils Seen; Urine Eosinophil Count 0 (0-0)
[2020-06-08] MEDS: vancomycin 1,500 MG/300 ML PIGGYBACK 200 MG IV (15:06)
--- NOTE | 2020-06-08 15:13 | PC.NURSE ---
BIS/TOF: 0700: 32/4 0800: 37/4 0900: 35/4 1000: 43/4 1100: 38/4 1200:32/4 1300: 36/4 1400: 40/[address] dow, nurse is titrating NImbex for vent compliance, not to acheive a 2/4 on a train of 4. Vent compliance was acheived at a 4/4.
[2020-06-08 15:14] LABS: Urea Nitrogen,Urine Random 269 mg/dL
[2020-06-08 15:15] LABS: ABG PCO2 38.7 mmHg (35-45); ABG PH Result 7.24 (7.35-7.45); Alveolar-Arterial Oxygen Gradi 38.9 mmHg (5-10); Arterial Blood Gas Hematocrit 41.7 % (37-47); Base Excess ABG -10.2 mmol/L (-2.0-2.0); Blood Gas Operator Identificat GD; Blood Gas Sample Site Brachial, left; Blood Gas Sample Type Arterial; Blood Gas Tidal Volume 0.45; Carboxyhemoglobin < 0.0 %THgb (0.4-20.1); HCO3 ABG 16.6 mmol/L (22-26); HGB O2 Sat 94.1 % (95-100); Ionized Calcium Level - ABG 1.4 mmol/L (1.1-1.4); Oxygen Device VENT; PO2 ABG 79.5 mmHg (80.0-100.0); Potassium Level - ABG 4.3 mmol/L (3.5-5.0); Total Hemoglobin 13.6 g/dL (12-16)
--- NOTE | 2020-06-08 15:38 | PC.NURSE ---
Patient was taken to CT. Respiratory and 2 nurses accompanied patient. Transport was uneventful.
[2020-06-08 16:50] LABS: Glucose Point of Care 288 mg/dL (70-110)
[2020-06-08 19:14] LABS: Partial Thromboplastin Time 39.1 SECONDS (23.9-36.7)
--- NOTE | 2020-06-08 19:51 | CTR_ITS ---
PROCEDURE INFORMATION: Exam: CT Chest Without Contrast; Diagnostic Exam date and time: 06/08/2020 10:26 AM Age: 75 years old Clinical indication: Other: Covid; Patient HX: Cpvid+ intubated - ? pneumomediastinum; Additional info: Poss pneumomediastinum TECHNIQUE: Imaging protocol: Diagnostic computed tomography of the chest without contrast. Sagittal and coronal reformatted images were created and reviewed. Radiation optimization: All CT scans at this facility use at least one of these dose optimization techniques: automated exposure control; mA and/or kV adjustment per patient size (includes targeted exams where dose is matched to clinical indication); or iterative reconstruction. COMPARISON: CR XR chest 1V portable [id number] 06/08/2020 3:04 AM RADIATION DOSE METRICS: Total DLP (mGy-cm): 902.41 FINDINGS: Limitations: Evaluation of the mediastinum and vascular structures is limited without intravenous contrast. Tubes, catheters and devices: There is an endotracheal tube with the tip 2.7 cm above the erik. There is an enteric tube with the tip extending into the distal stomach, the tip is not included in the study. Lungs: Tracheobronchial structures are patent. Diffuse, bilateral ground-glass opacification. More focal alveolar airspace disease with air bronchograms in the left lower lobe. No pulmonary parenchymal nodules or masses. No pulmonary parenchymal nodules or masses. Pleural spaces: No pneumothorax. No pleural effusion. Heart: Moderate enlargement of the heart. Calcification of the aortic valve and mitral valve annulus. Mild atherosclerotic calcification in the coronary arteries. Mediastinal space: Moderate amount of pneumomediastinum in the anterior mediastinum. No mediastinal hematoma. Pulmonary arteries: Pulmonary arteries are unremarkable. Aorta: Moderate atherosclerotic changes in the visualized arteries. Veins: There is a left internal jugular central line with the tip in the lower SVC. Pulmonary veins are unremarkable. Lymph nodes: No lymphadenopathy. Bones/joints: Findings suggesting prior fusion in the lower cervical spine. Multilevel degenerative changes of varying severity in the visualized spine. Soft tissues: No acute abnormality in the extrathoracic soft tissues. CT/CT chest wo con [id number] IMPRESSION: 1. Diffuse, bilateral ground-glass opacification. Patient is reportedly COVID-19 positive. Findings in the lungs are nonspecific and could be secondary to COVID-19 . Superimposed diffuse alveolar damage or asymmetric pulmonary edema cannot be ruled out. Recommend clinical correlation. Recommend followup chest imaging to insure resolution of these findings. 2. More focal alveolar airspace disease with air bronchograms in the left lower lobe. Again, possible superimposed bacterial pneumonia cannot be ruled out. Recommend clinical correlation. Recommend followup chest imaging to insure resolution of these findings. 3. Moderate amount of pneumomediastinum in the anterior mediastinum. 4. Incidental/nonacute findings are listed in the report. Radiation Dose CTDIVOL = (mGy): DLP = 902.41 (mGy-cm)
[2020-06-08] MEDS: heparin drip 25,000 UNIT/500 ML PREMIX 14 UNIT IV (20:26)
[2020-06-08] MEDS: heparin 5,000 unit/mL INJ 1 mL IV (20:29)
[2020-06-08 20:56] LABS: Glucose Point of Care 293 mg/dL (70-110)
[2020-06-09] VITALS (114 sets, daily range): BP systolic 101–182; BP diastolic 58–103; PULSE 77–144; RESP 25–36; TEMP 36.8–38; O2SAT 90–98
[2020-06-09 01:09] LABS: Partial Thromboplastin Time 94.4 SECONDS (23.9-36.7)
[2020-06-09] MEDS: ipratropium-albuterol 3 mL Neb INHALATION ×4 (02:05→20:27)
[2020-06-09 04:24] LABS: Basophils # 0.1 10^3/uL (0.0-0.1); Basophils % 0.3 %; Hematocrit 38.6 % (37.0-47.0); Hemoglobin 12.9 g/dL (11.5-15.3); Lymphocytes # 0.9 10^3/uL (0.8-4.8); Lymphocytes % 4.1 %; Mean Corpuscular HGB Conc 33.4 g/dL (30.0-36.0); Mean Corpuscular Hemoglobin 29.9 pg (28.0-34.0); Mean Corpuscular Volume 89.4 fL (81-99); Monocytes # 1.6 10^3/uL (0.2-0.9); Monocytes % 6.8 %; Neutrophils # 19.63 10^3/uL (1.8-7.7); Neutrophils % 84.9 %; Nucleated Red Blood Cells # 0.2 /100WBC; Nucleated Red Blood Cells % 0.8 %; Platelet Count 177 10^3/cmm (130-400); Red Blood Count 4.32 10^6/uL (4.1-5.3); White Blood Count 23.1 10^3/uL (4.0-10.0)
[2020-06-09 04:30] LABS: INR 1.56 (0.8-1.2)
[2020-06-09 04:32] LABS: Fibrinogen 334 mg/dL (174-498)
[2020-06-09 04:37] LABS: D Dimer 3.69 ug/mIFEU (0-0.59)
[2020-06-09 04:46] LABS: Alanine Aminotransferase 28 U/L (0-33); Albumin Level 2.1 g/dL (3.5-5.2); Alkaline Phosphatase 115 IU/L (35-105); Aspartate Amino Transferase 67 U/L (0-32); C Reactive Protein 49.5 mg/L (0.0-4.9); Calcium 8.9 mg/dL (8.5-10.5); Carbon Dioxide 18 mmol/L (22-29); Chloride 113 mmol/L (98-107); Globulin 2.9 g/dL (1.3-4.6); Glucose 248 mg/dL (65-115); Osmolality Calculated 343 mOsm/kg (285-295); Sodium 146 mmol/L (136-145); Total Bilirubin 0.5 mg/dL (0.15-1.2)
[2020-06-09 04:52] LABS: Blood Urea Nitrogen 103 mg/dL (8-23); Creatine Phosphokinase 1781 U/L (26-192)
[2020-06-09 05:01] LABS: ABG PCO2 37.5 mmHg (35-45); ABG PH Result 7.26 (7.35-7.45); Arterial Blood Gas Hematocrit 42.5 % (37-47); Base Excess ABG -9.7 mmol/L (-2.0-2.0); Blood Gas Allen Test Pos; Blood Gas Operator Identificat JB; Blood Gas Sample Site Radial, right; Blood Gas Sample Type Arterial; HCO3 ABG 16.7 mmol/L (22-26); Oxygen Device VENT; PO2 ABG 88.3 mmHg (80.0-100.0)
[2020-06-09 05:18] LABS: Free T4 Free Thyroxine 1.65 ng/dL (0.82-1.77); T3 Free 3.6 PG/ML (2.0-4.4)
[2020-06-09] MEDS: insulin glargine 100 units/1 mL 10 UNIT SUBCUT (05:39)
--- NOTE | 2020-06-09 06:00 | XRR_ITS ---
PROCEDURE INFORMATION: Exam: XR Chest Exam date and time: 06/09/2020 5:54 AM Age: 75 years old Clinical indication: Other: Hypozia; Additional info: Hypoxia TECHNIQUE: Imaging protocol: XR of the chest. Views: 1 view. COMPARISON: CT chest con [id number] 06/08/2020 1:07 PM FINDINGS: Tubes, catheters and devices: An endotracheal tube, central venous catheter and nasogastric tube projects in satisfactory position. Lungs: There are hazy bilateral interstitial pulmonary infiltrates which are similar to the previous studies. There is increased left basilar density consistent with atelectasis or consolidation in the left lower lobe. Pleural spaces: Unremarkable. No pleural effusion. No pneumothorax. Heart/Mediastinum: There is a small amount of linear lucency along the mediastinal structures consistent with diminishing pneumo mediastinum. Bones/joints: Unremarkable. XR/XR chest 1V portable [id number] IMPRESSION: 1. Stable bilateral interstitial pulmonary infiltrates and left basilar atelectasis/consolidation. 2. Diminishing pneumo mediasti he num.
[2020-06-09 06:03] LABS: Glucose Point of Care 256 mg/dL (70-110)
[2020-06-09 08:09] LABS: Glucose Point of Care 298 mg/dL (70-110)
[2020-06-09 08:40] LABS: Partial Thromboplastin Time 33.9 SECONDS (23.9-36.7)
[2020-06-09] MEDS: dexamethasone 4 mg/mL INJ 6 MG IV (09:31)
[2020-06-09] MEDS: metoprolol tartrate 25 mg Tablet PO ×2 (09:34→20:14)
[2020-06-09] MEDS: aspirin 325 mg Tablet PO (09:34)
[2020-06-09] MEDS: FUROsemide 10 mg/mL SDV 4mL 40 MG IVP (09:34)
[2020-06-09] MEDS: famotidine 20 mg/2 mL INJ IVP ×2 (09:34→21:50)
--- NOTE | 2020-06-09 11:03 | P.PN_ITS ---
Subjective Subjective: Interval history: Hospital course, labs reviewed. On examination patient is intubated, sedated with fentanyl and midazolam. She received 40 mg of IV Lasix early in the morning after which she had robust amount of urine output she has remained hemodynamically stable with T-max in last 24 hours of 99.2 Fahrenheit. Currently she is on ventilator setting of FiO2 of 60%, PEEP of 8. During my examination FiO2 was decreased to 55%. Medications: Reviewed: Yes Vitals/I&O/Wt Last Vital Signs Temp 98.9 F 06/09/20 10:55 Pulse 102 H 06/09/20 10:45 Resp 36 H 06/09/20 09:38 BP 158/88 06/09/20 10:45 Pulse Ox 94 06/09/20 10:45 06/08/20 06/09/20 06/09/20 22:59 06:59 14:59 Intake Total 481.154 / 848.301 185.566 / 6818.363 8525.542 / 1288.542 Output Total 350 / 650 300 / 950 Balance 131.154 / 198.301 -114.434 / 83.867 1288.542 / 1288.542 Physical Exam Narrative: EXAM NARRATIVE: General: Intubated , sedated HEENT: PERRLA, pupils bilaterally equal and reactive Chest: Normal vesicular breath sounds, b/l extensive crackles present all over the upper and mid lung pedraza, equal good air entry bilaterally CVS: S1-S2 regular, no murmurs, no tachycardia, no gallops, no rubs Abdomen: Soft, nontender, no organomegaly, bowel sounds present Neuro: Sedated, pupil b/l equal and reactive. Urinary Catheter Management^: Blake: Cath Placed During This Visit: yes, but has since been removed by the nurse Reason for Continuing Indwelling Catheter: Accurate Measurement of Urinary Output in Critically Ill Patients Urinary Catheter Date of Insertion: 06/06/20 Urinary Catheter Time of Insertion: 22:49 Date Urinary Catheter Removed: 06/06/20 Time Urinary Catheter Discontinued: 22:49 Data : 06/10/20 03:25 06/10/20 03:25 Micro: Microbiology 06/08/20 11:55 Sputum Culture - Preliminary Sputum - Endotracheal Tube Aspirate 06/07/20 13:45 Gram Stain - Final Sputum - Endotracheal Wash Sputum Culture - Final 06/08/20 13:15 Urine Culture - Preliminary Urine Catheterized 06/07/20 18:50 Blood Culture - Preliminary Blood NEGATIVE TO DATE 06/07/20 18:24 Blood Culture - Preliminary Blood NEGATIVE TO DATE 06/08/20 11:55 Blood Culture - Preliminary Blood SPECIMEN COLLECTED 06/08/20 11:45 Blood Culture - Preliminary Blood SPECIMEN COLLECTED Abnormal lab results 06/08/20 06/08/20 06/08/20 Range/Units 11:16 11:45 11:55 WBC (4.0-10.0) 10^3/uL MPV (7.4-10.4) fL Neut # (Auto) (1.8-7.7) 10^3/uL [place] # (Auto) (0.2-0.9) 10^3/uL PT (12.1-14.9) SECONDS INR (0.8-1.2) APTT 97.0 H (23.9-36.7) SECONDS Fibrin Degrad Products (NEG) ug/mL D-Dimer (0-0.59) ug/mIFEU ABG pH (7.35-7.45) ABG pO2 (80.0-100.0) mmHg ABG HCO3 (22-26) mmol/L ABG Base Excess (-2.0-2.0) mmol/L A-a O2 Gradient (5-10) mmHg Hgb O2 Saturation (95-100) % Carboxyhemoglobin (0.4-20.1) %THgb Sodium (131-143) mmol/L Glucose (70-115) mg/dL Chloride (98-107) mmol/L Carbon Dioxide (22-29) mmol/L BUN (8-23) mg/dL Creatinine (0.5-0.9) mg/dL POC Glucose 227 H (70-110) mg/dL Calculated Osmolality (285-295) mOsm/kg Uric Acid 7.8 H (2.4-5.7) mg/dL AST (0-32) U/L Alkaline Phosphatase (35-105) IU/L Creatine Kinase 917 H* D (26-192) U/L C-Reactive Protein (0.0-4.9) mg/L Total Protein (6.6-8.7) g/dL Albumin (3.5-5.2) g/dL Procalcitonin (0-0.5) ng/mL TSH 0.02 L (0.27-4.20) uIU/mL Urine Blood (Negative) Urine RBC (0-2) /hpf Urine WBC (0-5) /hpf Ur Squamous Epith Cells (0-5) /hpf Urine Bacteria (NONE) /hpf 06/08/20 06/08/20 06/08/20 Range/Units 11:55 13:15 15:00 WBC (4.0-10.0) 10^3/uL MPV (7.4-10.4) fL Neut # (Auto) (1.8-7.7) 10^3/uL [place] # (Auto) (0.2-0.9) 10^3/uL PT (12.1-14.9) SECONDS INR (0.8-1.2) APTT (23.9-36.7) SECONDS Fibrin Degrad Products (NEG) ug/mL D-Dimer (0-0.59) ug/mIFEU ABG pH 7.24 L (7.35-7.45) ABG pO2 79.5 L (80.0-100.0) mmHg ABG HCO3 16.6 L (22-26) mmol/L ABG Base Excess -10.2 L (-2.0-2.0) mmol/L A-a O2 Gradient 38.9 H (5-10) mmHg Hgb O2 Saturation 94.1 L (95-100) % Carboxyhemoglobin < 0.0 L (0.4-20.1) %THgb Sodium 144.0 H (131-143) mmol/L Glucose 288.0 H (70-115) mg/dL Chloride (98-107) mmol/L Carbon Dioxide (22-29) mmol/L BUN (8-23) mg/dL Creatinine (0.5-0.9) mg/dL POC Glucose (70-110) mg/dL Calculated Osmolality (285-295) mOsm/kg Uric Acid (2.4-5.7) mg/dL AST (0-32) U/L Alkaline Phosphatase (35-105) IU/L Creatine Kinase (26-192) U/L C-Reactive Protein (0.0-4.9) mg/L Total Protein (6.6-8.7) g/dL Albumin (3.5-5.2) g/dL Procalcitonin 0.81 H (0-0.5) ng/mL TSH (0.27-4.20) uIU/mL Urine Blood 3+ H (Negative) Urine RBC 5-10 H (0-2) /hpf Urine WBC 0-4 H (0-5) /hpf Ur Squamous Epith Cells 0-4 H (0-5) /hpf Urine Bacteria 1+ H (NONE) /hpf 06/08/20 06/08/20 06/08/20 Range/Units 16:39 18:20 20:36 WBC (4.0-10.0) 10^3/uL MPV (7.4-10.4) fL Neut # (Auto) (1.8-7.7) 10^3/uL [place] # (Auto) (0.2-0.9) 10^3/uL PT (12.1-14.9) SECONDS INR (0.8-1.2) APTT 39.1 H D (23.9-36.7) SECONDS Fibrin Degrad Products (NEG) ug/mL D-Dimer (0-0.59) ug/mIFEU ABG pH (7.35-7.45) ABG pO2 (80.0-100.0) mmHg ABG HCO3 (22-26) mmol/L ABG Base Excess (-2.0-2.0) mmol/L A-a O2 Gradient (5-10) mmHg Hgb O2 Saturation (95-100) % Carboxyhemoglobin (0.4-20.1) %THgb Sodium (131-143) mmol/L Glucose (70-115) mg/dL Chloride (98-107) mmol/L Carbon Dioxide (22-29) mmol/L BUN (8-23) mg/dL Creatinine (0.5-0.9) mg/dL POC Glucose 288 H 293 H (70-110) mg/dL Calculated Osmolality (285-295) mOsm/kg Uric Acid (2.4-5.7) mg/dL AST (0-32) U/L Alkaline Phosphatase (35-105) IU/L Creatine Kinase (26-192) U/L C-Reactive Protein (0.0-4.9) mg/L Total Protein (6.6-8.7) g/dL Albumin (3.5-5.2) g/dL Procalcitonin (0-0.5) ng/mL TSH (0.27-4.20) uIU/mL Urine Blood (Negative) Urine RBC (0-2) /hpf Urine WBC (0-5) /hpf Ur Squamous Epith Cells (0-5) /hpf Urine Bacteria (NONE) /hpf 06/09/20 06/09/20 06/09/20 Range/Units 00:40 02:46 02:46 WBC 23.1 H (4.0-10.0) 10^3/uL MPV 13.0 H (7.4-10.4) fL Neut # (Auto) 19.63 H (1.8-7.7) 10^3/uL [place] # (Auto) 1.6 H (0.2-0.9) 10^3/uL PT (12.1-14.9) SECONDS INR (0.8-1.2) APTT 94.4 H D (23.9-36.7) SECONDS Fibrin Degrad Products (NEG) ug/mL D-Dimer (0-0.59) ug/mIFEU ABG pH (7.35-7.45) ABG pO2 (80.0-100.0) mmHg ABG HCO3 (22-26) mmol/L ABG Base Excess (-2.0-2.0) mmol/L A-a O2 Gradient (5-10) mmHg Hgb O2 Saturation (95-100) % Carboxyhemoglobin (0.4-20.1) %THgb Sodium 146 H (131-143) mmol/L Glucose 248 H (70-115) mg/dL Chloride 113 H (98-107) mmol/L Carbon Dioxide 18 L (22-29) mmol/L BUN 103 H* (8-23) mg/dL Creatinine 2.9 H (0.5-0.9) mg/dL POC Glucose (70-110) mg/dL Calculated Osmolality 343 H (285-295) mOsm/kg Uric Acid (2.4-5.7) mg/dL AST 67 H (0-32) U/L Alkaline Phosphatase 115 H (35-105) IU/L Creatine Kinase 1781 H* (26-192) U/L C-Reactive Protein 49.5 H (0.0-4.9) mg/L Total Protein 5.0 L (6.6-8.7) g/dL Albumin 2.1 L (3.5-5.2) g/dL Procalcitonin (0-0.5) ng/mL TSH (0.27-4.20) uIU/mL Urine Blood (Negative) Urine RBC (0-2) /hpf Urine WBC (0-5) /hpf Ur Squamous Epith Cells (0-5) /hpf Urine Bacteria (NONE) /hpf 06/09/20 06/09/20 06/09/20 Range/Units 02:46 04:48 05:58 WBC (4.0-10.0) 10^3/uL MPV (7.4-10.4) fL Neut # (Auto) (1.8-7.7) 10^3/uL [place] # (Auto) (0.2-0.9) 10^3/uL PT 19.20 H (12.1-14.9) SECONDS INR 1.56 H (0.8-1.2) APTT 39.0 H D (23.9-36.7) SECONDS Fibrin Degrad Products Pos, 10-40 H (NEG) ug/mL D-Dimer 3.69 H (0-0.59) ug/mIFEU ABG pH 7.26 L (7.35-7.45) ABG pO2 (80.0-100.0) mmHg ABG HCO3 16.7 L (22-26) mmol/L ABG Base Excess -9.7 L (-2.0-2.0) mmol/L A-a O2 Gradient (5-10) mmHg Hgb O2 Saturation (95-100) % Carboxyhemoglobin (0.4-20.1) %THgb Sodium (131-143) mmol/L Glucose (70-115) mg/dL Chloride (98-107) mmol/L Carbon Dioxide (22-29) mmol/L BUN (8-23) mg/dL Creatinine (0.5-0.9) mg/dL POC Glucose 256 H (70-110) mg/dL Calculated Osmolality (285-295) mOsm/kg Uric Acid (2.4-5.7) mg/dL AST (0-32) U/L Alkaline Phosphatase (35-105) IU/L Creatine Kinase (26-192) U/L C-Reactive Protein (0.0-4.9) mg/L Total Protein (6.6-8.7) g/dL Albumin (3.5-5.2) g/dL Procalcitonin (0-0.5) ng/mL TSH (0.27-4.20) uIU/mL Urine Blood (Negative) Urine RBC (0-2) /hpf Urine WBC (0-5) /hpf Ur Squamous Epith Cells (0-5) /hpf Urine Bacteria (NONE) /hpf 06/09/20 Range/Units 07:54 WBC (4.0-10.0) 10^3/uL MPV (7.4-10.4) fL Neut # (Auto) (1.8-7.7) 10^3/uL [place] # (Auto) (0.2-0.9) 10^3/uL PT (12.1-14.9) SECONDS INR (0.8-1.2) APTT (23.9-36.7) SECONDS Fibrin Degrad Products (NEG) ug/mL D-Dimer (0-0.59) ug/mIFEU ABG pH (7.35-7.45) ABG pO2 (80.0-100.0) mmHg ABG HCO3 (22-26) mmol/L ABG Base Excess (-2.0-2.0) mmol/L A-a O2 Gradient (5-10) mmHg Hgb O2 Saturation (95-100) % Carboxyhemoglobin (0.4-20.1) %THgb Sodium (131-143) mmol/L Glucose (70-115) mg/dL Chloride (98-107) mmol/L Carbon Dioxide (22-29) mmol/L BUN (8-23) mg/dL Creatinine (0.5-0.9) mg/dL POC Glucose 298 H (70-110) mg/dL Calculated Osmolality (285-295) mOsm/kg Uric Acid (2.4-5.7) mg/dL AST (0-32) U/L Alkaline Phosphatase (35-105) IU/L Creatine Kinase (26-192) U/L C-Reactive Protein (0.0-4.9) mg/L Total Protein (6.6-8.7) g/dL Albumin (3.5-5.2) g/dL Procalcitonin (0-0.5) ng/mL TSH (0.27-4.20) uIU/mL Urine Blood (Negative) Urine RBC (0-2) /hpf Urine WBC (0-5) /hpf Ur Squamous Epith Cells (0-5) /hpf Urine Bacteria (NONE) /hpf A&P Assessment and plan (1) COVID-19 virus infection: Status: Acute (2) Respiratory failure with hypoxia: As above. 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 Change aspirin to suppository. Other oral medications on hold for now. 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 Sedation for continued mechanical ventilation. We are weaning down paralytics. Reassess CT head. Status: Acute Qualifiers: Altered mental status type: unspecified Qualified Code(s): R41.82 - Altered mental status, unspecified (12) Acute cystitis: Completed antibiotic course. Status: Acute Additional A&P Information Respiratory failure secondary to COVID-19 pneumonia: ARDS: Multiorgan dysfunction: Sepsis due to COVID-19 pneumonia with possible superimposed bacterial infection: Patient is already finished course of remdesivir. Day 10 of dexamethasone. Continue with DuoNebs every 6 hours. Frequency of duo nebs decreased because can lead to lactic acidosis. Start patient on budesonide. Continue heparin drip. No VTE on duplex. Poor renal function, for now hold off on CT angiogram chest due to JEFF We will try to wean off ventilation as per oxygen saturation. We will try to keep patient intubated for now till we can have family meeting regarding further goals of care. Sepsis 2/2 UTI, possible superimposed bacterial PNA: Continue with primaxin and vancomycin. Decrease dose of primaxin to 250 Q6h as per creatinine clearance. Vanc random level as creatinine rising. Hold vanc for now. follow up with cultures. CT imaging results appreciated. Can not get contrast study given severe JEFF. JEFF: Nephrology on board. Check vanc random levels. Med rec done as per Crcl. Monitor urine output. DIC/ Thrombocytopenia: Resolving. Improved. Discussed with her granddaughter who is agreeable with plan. With persistent respiratory failure, ARDS, metabolic and respiratory stenosis with limitations on ventilation with possible pneumomediastinum, possible additional intra- abdominal process, worsening renal function, demand ischemia versus AMI, with history of CVA, baseline poor functional status prognosis unfortunately is not good. They are arranging for her son to come from [place], and then will further be discussing regarding goals of care. Attestations Medical Necessity Statement*: Requires further hospitalization for ARDS, MODS, JEFF Critical Care Time: Vent settings, sedation, JEFF, Critical Care Time (min): 90 Coding Level of Care Code Acute Estate Planning Attorney for 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
--- NOTE | 2020-06-09 11:09 | PC.CHAP ---
Pastoral Care Encounter/Spiritual Assessment Type of Contact [] Declined finance admin visit [] Patient/Family/Request visit [] Outpatient visit [x] Follow-up visit [] Physician referral [] Code/Alert [] Routine visit [] Staff referral [] Actively dying [] Patient sleeping [] Family support [] [] Out of room [] Palliative care [] [] Receiving care in room [] Pre-surgical visit [] Trauma [] Long length of stay [] ICU visit [] Other: Relational/Emotional Strength [] Patient feels connected with others/family/visitors/staff [] Distress [] Loneliness/isolation [] Abandonment Spirituality of Patient [] Person of Makayla [] Attends Mandaen of their Makayla [] Believes in Prayer [] Reads Bible or Roman Catholic materials [] There are Spiritual issues to be addressed Atm Mechanic Interventions [] Prayer [] Active listening [] Non-anxious presence [] Spiritual/emotional support [] Crisis/trauma care [] Spiritual counseling [] Bereavement support [] Provided bereavement packet [] Provided Bible/devotional materials [] Provided toy/stuffed animal, coloring book to patient or family member [] Provided Communion [] Anointing/[place] [] Salvation [] Completed spiritual assessment [] Other: Impact on Illness or Injury [] Angry [] Fearful [] Anxious [] Often cries [] Exhaustion [] Unable to work [] Unable to attend jainism [] Unable to walk/stand [] Unable to read [] Unable to drive [] Unable to eat/drink [] Unable to sleep [] Unable to be with family [] Patient intubated [] Other: Summary Time spent with patient
--- NOTE | 2020-06-09 11:11 | PC.CHAP ---
Pastoral Care Encounter/Spiritual Assessment Type of Contact [] Declined earring maker visit [] Patient/Family/Request visit [] Outpatient visit [x] Follow-up visit [] Physician referral [] Code/Alert [] Routine visit [] Staff referral [] Actively dying [] Patient sleeping [] Family support [] [] Out of room [] Palliative care [] [] Receiving care in room [] Pre-surgical visit [] Trauma [] Long length of stay [] ICU visit [] Other: Relational/Emotional Strength [] Patient feels connected with others/family/visitors/staff [] Distress [] Loneliness/isolation [] Abandonment Spirituality of Patient [] Person of Makayla [] Attends Synagogue of their Makayla [] Believes in Prayer [] Reads Bible or Mu-Ism materials [] There are Spiritual issues to be addressed Injection Operator Interventions [] Prayer [] Active listening [] Non-anxious presence [] Spiritual/emotional support [] Crisis/trauma care [] Spiritual counseling [] Bereavement support [] Provided bereavement packet [] Provided Bible/devotional materials [] Provided toy/stuffed animal, coloring book to patient or family member [] Provided Communion [] Anointing/[place] [] Salvation [] Completed spiritual assessment [] Other: Impact on Illness or Injury [] Angry [] Fearful [] Anxious [] Often cries [] Exhaustion [] Unable to work [] Unable to attend temple [] Unable to walk/stand [] Unable to read [] Unable to drive [] Unable to eat/drink [] Unable to sleep [] Unable to be with family [] Patient intubated [] Other: Summary Time spent with patient
--- NOTE | 2020-06-09 11:30 | PC.NUTR ---
Tube feeding order for Nepro at 10 ml/hr noted. Nursing report goal rate of 60 ml/hr, increasing by 20 ml q 2 hr to meet goal. 250 ml H2O flushes q4 hr. TF as ordered to provide 2549 kcal, 117 g protein, 1044 ml free water, 2544 ml total H2O including flushes. Will monitor TF tolerance, labs, and wound healing as available, follow-up as appropriate.
[2020-06-09 11:44] LABS: Glucose Point of Care 357 mg/dL (70-110)
--- NOTE | 2020-06-09 11:46 | P.PN_ITS ---
Subjective Subjective: Interval history: She continues to do very poorly. Remains intubated and vented. UO noted to be 950mL yesterday in response to iv diuretics and following the volume she received FiO2 60% and PEEP 8 Currently not requiring pressor agents Medications: Reviewed: Yes Vitals/I&O/Wt Last Vital Signs Temp 98.9 F 06/09/20 10:55 Pulse 102 H 06/09/20 10:45 Resp 35 H 06/09/20 11:15 BP 158/88 06/09/20 10:45 Pulse Ox 95 06/09/20 11:15 06/08/20 06/09/20 06/09/20 22:59 06:59 14:59 Intake Total 481.154 / 848.301 185.566 / 9653.624 5195.542 / 1288.542 Output Total 350 / 650 300 / 950 Balance 131.154 / 198.301 -114.434 / 83.867 1288.542 / 1288.542 Physical Exam Narrative: EXAM NARRATIVE: Constitutional: Sedated and vented HEENT: Wet mucosa, no jvp, non icteric Lungs: Bilaterally clear without discernible wheeze, rales in all lung zones CVS: S1 S2, no murmurs Abdo: Soft, BS ok Ext 4: Minimal edema, peripheral perfusion with no cyanosis Neurological: Sedated and vented Urinary Catheter Management^: Blake: Cath Placed During This Visit: yes, but has since been removed by the nurse Reason for Continuing Indwelling Catheter: Accurate Measurement of Urinary Outp ut in Critically Ill Patients Urinary Catheter Date of Insertion: 06/06/20 Urinary Catheter Time of Insertion: 22:49 Date Urinary Catheter Removed: 06/06/20 Time Urinary Catheter Discontinued: 22:49 Data : 06/09/20 02:46 06/09/20 02:46 Micro: Microbiology 06/08/20 11:55 Sputum Culture - Preliminary Sputum - Endotracheal Tube Aspirate 06/07/20 13:45 Gram Stain - Final Sputum - Endotracheal Wash Sputum Culture - Final 06/08/20 13:15 Urine Culture - Preliminary Urine Catheterized 06/07/20 18:50 Blood Culture - Preliminary Blood NEGATIVE TO DATE 06/07/20 18:24 Blood Culture - Preliminary Blood NEGATIVE TO DATE 06/08/20 11:55 Blood Culture - Preliminary Blood SPECIMEN COLLECTED 06/08/20 11:45 Blood Culture - Preliminary Blood SPECIMEN COLLECTED A&P Additional A&P Information 1. Acute renal dysfunction Differential diagnosis for this includes sepsis and Covid related glomerulopathy with associated acute tubular dysfunction. Acute interstitial nephritis from antibiotic exposure is also possible as well as acute tubular dysfunction from vancomycin exposure. Urine chemistry consistent with intrarenal Still no acute indication for dialysis today, however, she is a very high risk of requiring this over the next 24-48 hours; of this depends on her overall plans of care . Avoid usual nephrotoxic agents Strict ins and outs 2. Sepsis, lactic acidosis CT A/P noted Currently she is on combination antibiotic therapy Cultures noted, so far positive only for E. coli in the urine 3. Electrolytes non critical aberration noted oinc met acidosis and hyperNa; monitor for now 4. Covid pneumonitis Vent dependent respiratory failure, management per ICU team Status post dexamethasone, currently on combination antibiotic therapy Her prognosis is obviously very guarded at this time, ongoing discussions with family members regarding goals of care. Thank you for consultation, as always it is a pleasure to follow these cases with you. Steven Tolbert MD Nephrology [phone] Patient seen and examined via telemedicine, with the assistance of the bedside RN > 25 min spent in evaluation and mgmt of patient Attestations Medical Necessity Statement*: eval for JEFF Coding Level of Care Code Acute Turntable Engineer for Carmen Spicer
--- NOTE | 2020-06-09 13:09 | PM.PN ---
Subjective Subjective: Interval history: - Patient seen at bedside today morning - No acute event overnight - Unfortunately repeat CT head yesterday showed multiple new infarcts - any attempt to taper sedation patient is hyperventilating and no response. - Patient still on fentanyl 100 and Versed 3- -Currently next of kin patient's son is out of station and he would want to come and see his mother before he revises goals of care. Currently patient is DNR -Worsening renal functions and patient Is heading Towards dialysis-but given multiple brain infarcts and poor prognosis-in my opinion dialysis will be futile in this patient Vitals/I&O/Wt Last Vital Signs Temp 98.2 F 06/09/20 11:45 Pulse 106 H 06/09/20 12:00 Resp 35 H 06/09/20 11:15 BP 167/79 06/09/20 12:00 Pulse Ox 94 06/09/20 11:45 06/08/20 06/09/20 06/09/20 22:59 06:59 14:59 Intake Total 481.154 / 848.301 185.566 / 3306.906 8524.542 / 1428.542 Output Total 350 / 650 300 / 950 Balance 131.154 / 198.301 -114.434 / 83.867 1428.542 / 1428.542 Physical Exam Narrative: EXAM NARRATIVE: EXAM NARRATIVE: EXAM NARRATIVE: PHYSICAL EXAM: General: lying in bed, sedated and intubated. HEENT:NCAT, PERRLA, EOMI Neck: Supple Lungs: Cl bibasilar crepitations Heart: s1/s2, RRR Abd: Obese distended, no organomegaly left internal jugular line BS positive Extremities: No edema FINANCIAL SERVICE REP: sedated and limited FINANCIAL SERVICE REP exam possible. SKIN: no rash LDA: # CVC: Left IJ 06/07/2020 # Blake: 06/06/2020 Urinary Catheter Management^: Blake: Cath Placed During This Visit: yes, but has since been removed by the nurse Reason for Continuing Indwelling Catheter: Accurate Measurement of Urinary Output in Critically Ill Patients Urinary Catheter Date of Insertion: 06/06/20 Urinary Catheter Time of Insertion: 22:49 Date Urinary Catheter Removed: 06/06/20 Time Urinary Catheter Discontinued: 22:49 Data : 06/09/20 02:46 06/09/20 02:46 Other Labs: Laboratory Results WBC 23.1 10^3/uL (4.0-10.0) H 06/09/20 02:46 RBC 4.32 10^6/uL (4.1-5.3) 06/09/20 02:46 Hgb 12.9 g/dL (11.5-15.3) 06/09/20 02:46 Hct 38.6 % (37.0-47.0) 06/09/20 02:46 MCV 89.4 fL (81-99) 06/09/20 02:46 MCH 29.9 pg (28.0-34.0) 06/09/20 02:46 MCHC 33.4 g/dL (30.0-36.0) 06/09/20 02:46 RDW 14.0 % (12.1-15.1) 06/09/20 02:46 Plt Count 177 10^3/cmm (130-400) 06/09/20 02:46 MPV 13.0 fL (7.4-10.4) H 06/09/20 02:46 Neut % (Auto) 84.9 % 06/09/20 02:46 Lymph % (Auto) 4.1 % 06/09/20 02:46 Thomas % (Auto) 6.8 % 06/09/20 02:46 Eos % (Auto) 0.0 % 06/09/20 02:46 Baso % (Auto) 0.3 % 06/09/20 02:46 Neut # (Auto) 19.63 10^3/uL (1.8-7.7) H 06/09/20 02:46 Lymph # (Auto) 0.9 10^3/uL (0.8-4.8) 06/09/20 02:46 Thomas # (Auto) 1.6 10^3/uL (0.2-0.9) H 06/09/20 02:46 Eos # (Auto) 0.0 10^3/uL (0.0-0.8) 06/09/20 02:46 Baso # (Auto) 0.1 10^3/uL (0.0-0.1) 06/09/20 02:46 Nucleated RBC % (auto) 0.8 % 06/09/20 02:46 Nucleated RBCs # 0.2 /100WBC 06/09/20 02:46 PT 19.20 SECONDS (12.1-14.9) H 06/09/20 02:46 INR 1.56 (0.8-1.2) H 06/09/20 02:46 APTT 33.9 SECONDS (23.9-36.7) 06/09/20 08:16 Fibrinogen 334 mg/dL (174-498) 06/09/20 02:46 Fibrin Degrad Products Pos, 10-40 ug/mL (NEG) H 06/09/20 02:46 D-Dimer 3.69 ug/mIFEU (0-0.59) H 06/09/20 02:46 Specimen Type Arterial 06/09/20 04:48 Sample Site Radial, right 06/09/20 04:48 ABG pH 7.26 (7.35-7.45) L 06/09/20 04:48 ABG pCO2 37.5 mmHg (35-45) 06/09/20 04:48 ABG pO2 88.3 mmHg (80.0-100.0) 06/09/20 04:48 ABG HCO3 16.7 mmol/L (22-26) L 06/09/20 04:48 ABG O2 Saturation 95.0 06/08/20 15:00 ABG Base Excess -9.7 mmol/L (-2.0-2.0) L 06/09/20 04:48 Moustapha Test Pos 06/09/20 04:48 A-a O2 Gradient 38.9 mmHg (5-10) H 06/08/20 15:00 Hematocrit 42.5 % (37-47) 06/09/20 04:48 Hgb O2 Saturation 94.1 % (95-100) L 06/08/20 15:00 Carboxyhemoglobin < 0.0 %THgb (0.4-20.1) L 06/08/20 15:00 Methemoglobin 1.0 % (0.4-1.5) 06/08/20 15:00 Total Hemoglobin 13.6 g/dL (12-16) 06/08/20 15:00 Sodium 144.0 mmol/L (131-143) H 06/08/20 15:00 Potassium 4.3 mmol/L (3.5-5.0) 06/08/20 15:00 Glucose 288.0 mg/dL (70-115) H 06/08/20 15:00 Ionized Calcium 1.4 mmol/L (1.1-1.4) 06/08/20 15:00 O2 Delivery Device Vent 06/09/20 04:48 Mechanical Rate 22.0 06/08/20 15:00 FiO2 60.0 % 06/09/20 04:48 Tidal Volume 0.45 06/08/20 15:00 PEEP 8.0 cmH20 06/09/20 04:48 Filter Worker ID Obed 06/09/20 04:48 Sodium 146 mmol/L (136-145) H 06/09/20 02:46 Potassium 4.0 mmol/L (3.5-5.1) 06/09/20 02:46 Chloride 113 mmol/L (98-107) H 06/09/20 02:46 Carbon Dioxide 18 mmol/L (22-29) L 06/09/20 02:46 Anion Gap 19.0 (5-19) 06/09/20 02:46 BUN 103 mg/dL (8-23) H* 06/09/20 02:46 Creatinine 2.9 mg/dL (0.5-0.9) H 06/09/20 02:46 GFR Calculation Not Reportable 06/09/20 02:46 Glucose 248 mg/dL (65-115) H 06/09/20 02:46 POC Glucose 357 mg/dL (70-110) H 06/09/20 11:36 Estimat Average Glucose 166 05/31/20 05:49 Hemoglobin A1c 7.4 % (4.0-6.0) H 05/31/20 05:49 Calculated Osmolality 343 mOsm/kg (285-295) H 06/09/20 02:46 Lactic Acid 1.7 mmol/L (0.5-2.2) 06/08/20 11:55 Lactate 2.6 mmol/L (0.5-2.2) H 06/07/20 18:24 Uric Acid 7.8 mg/dL (2.4-5.7) H 06/08/20 11:55 Calcium 8.9 mg/dL (8.5-10.5) 06/09/20 02:46 Magnesium 1.9 mg/dL (1.7-2.3) 06/01/20 06:38 Ferritin 780 ng/mL (15-150) H 06/01/20 06:38 Total Bilirubin 0.5 mg/dL (0.15-1.2) 06/09/20 02:46 AST 67 U/L (0-32) H 06/09/20 02:46 ALT 28 U/L (0-33) 06/09/20 02:46 Alkaline Phosphatase 115 IU/L (35-105) H 06/09/20 02:46 Creatine Kinase 1781 U/L (26-192) H* 06/09/20 02:46 Troponin T Baseline 71 ng/L (0-10) H 06/07/20 14:35 Troponin T 120 Minute 86.55 ng/L (0-10) H 06/07/20 16:10 Delta Troponin T 15.55 ABS# (0-10) H* 06/07/20 16:10 Troponin T Hi Sens 6Hr 99.23 ng/L (0-10) H 06/07/20 20:25 Troponin T Hi Sens 6Hr Delta 28.23 ng/L (0-12) H* 06/07/20 20:25 C-Reactive Protein 49.5 mg/L (0.0-4.9) H 06/09/20 02:46 NT-Pro-B Natriuret Pep 2084 pg/mL (0-125) H 06/07/20 18:24 Total Protein 5.0 g/dL (6.6-8.7) L 06/09/20 02:46 Albumin 2.1 g/dL (3.5-5.2) L 06/09/20 02:46 Globulin 2.9 g/dL (1.3-4.6) 06/09/20 02:46 Lipase 32 U/L (13-60) 05/29/20 23:40 Procalcitonin 0.81 ng/mL (0-0.5) H 06/08/20 11:55 TSH 0.02 uIU/mL (0.27-4.20) L 06/08/20 11:55 Free T4 1.65 ng/dL (0.82-1.77) 06/09/20 02:46 Free T3 3.6 PG/ML (2.0-4.4) 06/09/20 02:46 Urine Color Straw (Yellow) 06/08/20 13:15 Urine Appearance Sl hazy (CLEAR) 06/08/20 13:15 Urine pH 5 (5-7) 06/08/20 13:15 Ur Specific [place] 1.015 (1.005-1.030) 06/08/20 13:15 Urine Protein Neg (Negative) 06/08/20 13:15 Urine Glucose (UA) Norm (Normal) 06/08/20 13:15 Urine Ketones Negative (Negative) 06/08/20 13:15 Urine Blood 3+ (Negative) H 06/08/20 13:15 Urine Nitrate Negative (Negative) 06/08/20 13:15 Urine Bilirubin Neg (Negative) 06/08/20 13:15 Urine Urobilinogen Norm mg/dL (Negative) 06/08/20 13:15 Ur Leukocyte Esterase Negative (Negative) 06/08/20 13:15 Urine RBC 5-10 /hpf (0-2) H 06/08/20 13:15 Urine WBC 0-4 /hpf (0-5) H 06/08/20 13:15 Ur Eosinophil Smear 0 (0-0) 06/08/20 13:15 Ur Squamous Epith Cells 0-4 /hpf (0-5) H 06/08/20 13:15 Amorphous Sediment Not Reportable 06/08/20 13:15 Urine Bacteria 1+ /hpf (NONE) H 06/08/20 13:15 Urine Mucus Trace /hpf 06/08/20 13:15 Urine Eosinophils No eosinophils seen 06/08/20 13:15 Ur Random Urea Nitrogn 269 mg/dL 06/08/20 13:15 Urine Creatinine 31 mg/dL (28-217) 06/08/20 13:15 Vancomycin Trough 12.9 ug/mL (10-15) 06/05/20 15:40 Random Vancomycin 45.0 ug/mL (20.0-40.0) H* 06/09/20 11:38 Digoxin 0.8 ng/mL (0.6-1.2) 06/08/20 03:53 Serum Ketones Negative (Negative) 06/07/20 14:35 SARS-CoV-2 Ag (Rapid) Positive (Negative) H 05/31/20 17:27 Impressions Hip/Pelvis X-Ray 05/29/20 23:03 IMPRESSION: 1. No RIGHT hip fracture identified. Pelvis CT performed on the same day was also reviewed and no fracture is evident by CT of the pelvis. If concern for hip fracture persists consider dedicated RIGHT hip CT. 2. Severe RIGHT hip joint osteoarthritis. Head/Neck CTA 05/29/20 23:33 IMPRESSION: 1. Widely patent carotid arteries. 2. Occluded right vertebral artery V1 segment, and intermittently occluded proximal to mid right vertebral artery V2 segments. 3. Indeterminate partially solid appearing 1.7 cm left thyroid lobe nodule, recommend ultrasound follow-up. 4. Mild apical ground-glass nonspecific lung opacities. 5. Mild mediastinal adenopathy. COMMENTS: Consistent with the [employer]'s Incidental Findings Committee white paper (J Am Federico Radiol 2015): In patients aged 35 years and older with an incidental thyroid nodule equal to or greater than 1.[address], MRI or extrathyroidal US, further evaluation with dedicated thyroid US is recommended for patients with normal life expectancy and without comorbidities. For smaller nodules without suspicious features, no further evaluation or follow up is recommended. REFERENCES: NASCET CRITERIA. The degree of internal carotid artery stenosis is based on NASCET criteria. Normal is no stenosis. Mild is less than 50% stenosis. Moderate is 50-69% stenosis. Severe is 70% to 99% stenosis. Total occlusion is no detectable patent lumen. Radiation Dose CTDIVOL = (mGy): DLP = 1431.02~1432.01 (mGy-cm) Abdomen X-Ray 06/06/20 10:33 Impression: Negative KUB with a notation that the patient's motion and breathing obscures detail. Abdomen Ultrasound 06/06/20 10:34 IMPRESSION: 1. Technically very limited evaluation of the abdominal structures due to body habitus. 2. Gallbladder not identified. History of prior cholecystectomy. 3. Mildly prominent liver. Venous Duplex 06/07/20 09:40 IMPRESSION: No evidence of deep vein thrombosis. Abdomen/Pelvis CT 06/08/20 11:47 IMPRESSION: 1. Diffuse, mild wall thickening of the bladder, suspicious for cystitis. Recommend correlation with laboratory findings. There is a Blake catheter in the bladder. 2. Stable left adrenal myelolipoma. 3. Stable nonobstructing right renal stone. 4. Descending colon and sigmoid colon diverticulosis. No evidence for diverticulitis. 5. Incidental/nonacute findings are listed in the report. COMMENTS: Consistent with the [employer]'s Incidental Findings Committee white paper (J Am Federico Radiol 2018): Any incidental renal lesion less than 1 cm or classified as too small to characterize, or any incidental cystic renal lesion characterized as simple-appearing, is likely benign. No follow-up imaging is recommended for these lesions per consensus recommendations based on imaging criteria. Radiation Dose CTDIVOL = (mGy): DLP = 1933.29 (mGy-cm) ADDENDUM: 06/08/20 1417 Urgent results were discussed with SUSHMA Sales on 06/08/2020 at 2:15 PM CDT. Radiation Dose CTDIVOL = (mGy): DLP = 1933.29 (mGy-cm) Head CT 06/08/20 13:46 IMPRESSION: 1. Interval development of findings suspicious for acute infarcts ranging in size from small to moderate/large in the right and left frontal lobes, right and left parietal lobes, and right and left cerebellar hemispheres. 2. Stable moderate area of encephalomalacia consistent with an old infarct in the left occipital lobe. 3. Stable findings suspicious for a small right frontal meningioma. 4. Moderate amount of fluid in the right and left mastoid air cells. Radiation Dose CTDIVOL = (mGy): DLP = 892.58 (mGy-cm) ADDENDUM: 06/08/20 1342 THIS REPORT CONTAINS FINDINGS THAT MAY BE CRITICAL TO PATIENT CARE. The findings were verbally communicated via telephone conference with Kirill Tsang at 1:40 PM CDT on 06/08/2020. The findings were acknowledged and understood. Radiation Dose CTDIVOL = (mGy): DLP = 892.58 (mGy-cm) Chest CT 06/08/20 19:51 IMPRESSION: 1. Diffuse, bilateral ground-glass opacification. Patient is reportedly COVID-19 positive. Findings in the lungs are nonspecific and could be secondary to COVID-19 . Superimposed diffuse alveolar damage or asymmetric pulmonary edema cannot be ruled out. Recommend clinical correlation. Recommend followup chest imaging to insure resolution of these findings. 2. More focal alveolar airspace disease with air bronchograms in the left lower lobe. Again, possible superimposed bacterial pneumonia cannot be ruled out. Recommend clinical correlation. Recommend followup chest imaging to insure resolution of these findings. 3. Moderate amount of pneumomediastinum in the anterior mediastinum. 4. Incidental/nonacute findings are listed in the report. Radiation Dose CTDIVOL = (mGy): DLP = 902.41 (mGy-cm) ADDENDUM: 06/08/20 1417 Urgent results were discussed with SUSHMA Sales on 06/08/2020 at 2:16 PM CDT. Radiation Dose CTDIVOL = (mGy): DLP = 902.41 (mGy-cm) Chest X-Ray 06/09/20 06:00 IMPRESSION: 1. Stable bilateral interstitial pulmonary infiltrates and left basilar atelectasis/consolidation. 2. Diminishing pneumo mediasti he num. Micro: Microbiology 06/08/20 11:55 Blood Culture - Preliminary Blood NEGATIVE TO DATE 06/08/20 11:45 Blood Culture - Preliminary Blood NEGATIVE TO DATE 06/08/20 11:55 Sputum Culture - Preliminary Sputum - Endotracheal Tube Aspirate 06/07/20 13:45 Gram Stain - Final Sputum - Endotracheal Wash Sputum Culture - Final 06/08/20 13:15 Urine Culture - Preliminary Urine Catheterized 06/07/20 18:50 Blood Culture - Preliminary Blood NEGATIVE TO DATE 06/07/20 18:24 Blood Culture - Preliminary Blood NEGATIVE TO DATE A&P Assessment and plan (1) Respiratory failure with hypoxia: Status: Acute Qualifiers: Chronicity: acute Qualified Code(s): J96.01 - Acute respiratory failure with hypoxia (2) COVID-19 virus infection: Status: Acute (3) Occipital stroke: Status: Acute (4) Altered mental status: Status: Acute Qualifiers: Altered mental status type: unspecified Qualified Code(s): R41.82 - Altered mental status, unspecified (5) UTI (urinary tract infection), bacterial: Status: Acute (6) Diabetes: Status: Acute Qualifiers: Diabetes mellitus type: type 2 Diabetes mellitus continuous churn buttermaker insulin use: unspecified continuous churn buttermaker insulin use status Diabetes mellitus complication status: with other specified complication Qualified Code(s): E11.69 - Type 2 diabetes mellitus with other specified complication (7) Pneumomediastinum: Status: Acute (8) Atrial fibrillation with RVR: Status: Acute (9) DIC (disseminated intravascular coagulation): Status: Acute (10) Renal failure, acute: Status: Acute (11) Suspected pulmonary embolism: Status: Acute (12) Acute ischemic multifocal multiple vascular territories stroke: Status: Acute ASSESSMENT/PLAN: Overall: 75-year-old female with past medical history of diabetes, hypertension initially admitted to hospital for further AMS due to E. coli urosepsis, also positive for COVID-19 pneumonia-currently transferred to ICU and intubated for worsening respiratory failure. 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 -On aspirin, Plavix, Lipitor - fentanyl drip 80 MCG, Versed drip 3 mg, -Taper off sedation and do awakening trial -Due to multiple acute infarcts in the brain in patient with occluded right vertebral artery and COVID-19 pneumonia-any meaningful recovery is highly unlikely and further aggressive management would be futile PULM: #Acute hypoxic respiratory failure secondary to COVID-19 pneumonia #Suspected pulmonary embolism #Pneumomediastinum-improving based on chest x-ray --Clinically deteriorating -Still on ventilator and saturating 92% on 80% FiO2 -ABG showed 7.2 6/37/88/16 on CMV 60%/450/8/16 -decreased FiO2 to 60% -Patient to get CT moderate pneumomediastinum; but due to worsening renal function could not get CT with contrast; -Chest x-ray today showed resolving pneumomediastinum - patient on heparin drip for suspected PE -Improving D-dimer and CRP -S/p remdesivir and currently on dexamethasone 6 mg IV daily -Currently on vancomycin and imipenem CVS: #Sinus tachycardia with intermittent A. fib with respiratory distress-could not rule out PE due to inability to obtain CT with contrast #Hypertension -Currently hemodynamically stable-not on pressors -off digoxin due to worsening renal function -Also on metoprolol 25 mg p.o. twice daily and 2.5 mg IV every 4 hour as needed -held lisinopril 10 mg p.o. daily due to worsening renal function -Currently on heparin drip -Sepsis management as below -Echo done report pending GI: #Diet-n.p.o. for now #GI prophylaxis: Famotidine 20 mg IV every 12 hours as patient is on steroids #Worsening AST CT abdomen pelvis: Diffuse mild wall thickening of bladder suspicious for cystitis. otherwise no acute findings -Avoid hepatotoxic medications -Monitor LFTs RENAL: #Acute kidney uktcty-[id number] related/sepsis related ATN -Worsening BUN and creatinine 103/2.9 -Last 24 hours I/O/N-1 L / 950 mL/+ 83 mL; since admission, 12 L/11.2 L / +1.4 L -Lasix 40 mg 1 dose today -Avoid nephrotoxins -Monitor renal functions and electrolytes and supplement to keep potassium > 4 and mg > 2 -No immediate indication for hemodialysis; nephrology consulted and appreciate recommendations -Even if she had still worse hemodialysis-it would be futile as patient has multiple brain infarcts with very poor prognosis HEM: -H&H stable -Plts stable -Coagulation profile-suggestive of DIC with increased FDP -DVT prophylaxis: Heparin -Venous Doppler-no evidence of DVT ENDO: #Diabetes -Uncontrolled sugars likely due to steroids -Serum ketones negative, off insulin drip, FSBS 227-357 over last 24 hours -Increase Lantus to 20 mg twice daily and continue scale coverage -Check every 6 hours ID: #Severe sepsis secondary to COVID pna and E. coli UTI -Worsening renal functions -CT chest showed bilateral consolidations -Afebrile in last 24 hours, worsening leukocytosis and DIC on labs -Repeat cultures so far negative and procalcitonin 0.81; lactic acid 1.4 -Urine cultures positive for E. coli resistant to quinolones -Currently on vancomycin and imipenem until repeat culture results; vancomycin held to check for trough levels Code Status: DNR Disposition: Remains in ICU Critically ill: Remains critically ill and very poor prognosis MD discussed with: Dr. Mayes, RN and RT taking care of the patient Family: Updated ICU CHECKLIST: Problem list updated Verbal orders reviewed and signed Analgesia: Fentanyl Glycemic Control: Lantus and insulin scale coverage Nutrition: N.p.o. for now Restraint Renewal (within 24 hrs): Yes Ulcer Prophylaxis: H2 natalya Chemical Thromboprophylaxis: Prophylaxis: Heparin Mechanical Thromboprophylaxis: SCDs Need for Blake catheter: Input output monitoring Need for Central line: Yes for multiple medications and infusions and possible paralytic and pressors Case discussed with RN, consultants and family or surrogate(s) and Dr. Shirley Given the deteriorating renal functions in patient with COVID-19 pneumonia might eventually end up needing hemodialysis. But due to multiple acute infarcts in the brain in patient with occluded right vertebral artery and COVID-19 pneumonia-any meaningful recovery is highly unlikely and further aggressive management would be futile. We will arrange for a family meeting once patient's son is in the hospital and discuss about further goals of care. Spoke to granddaughter and she informed that health power of commonwealth attorney is patient's son. Called patient's son Mr. Jesus Beverly and updated patient's clinical condition. Currently patient's son is out of state and he is on his way to come to the hospital and visit the patient., Until then he wants to keep his mother alive. Attestations Medical Necessity Statement*: Extremely poor prognosis and patient with multiple acute infarcts in the brain, worsening renal functions and DIC and patient with COVID-19 pneumonia still requiring mechanical ventilation for respiratory support and possibly heading towards hemodialysis. Pending family meeting for goals of care Time Spent in Patient Care: (>than 50% of time spent in counselling and/or direct pt care on unit). Critical Care Time: The high probability of a clinically significant, sudden or life threatening deterioration of the patient's central nervous system, cardiac, pulmonary, renal, infectious system(s) required my full and direct attention, intervention and personal management. The critical care time is as shown. This time is in addition to time spent performing any reported procedures but includes the following: [x] Data and vital sign review and interpretation [x] Patient assessment, examination and intervention [x] Documentation [x] Medication orders and management Critical Care Time (min): 45 Coding Level of Care Code Established Pt Acute Inspector Floor for Carmen Fwsondra Patient Type Established History Comprehensive Exam Comprehensive Medical Decision Making High Complexity Diagnoses Respiratory failure with hypoxia J96.01 Chronicity: acute COVID-19 virus infection U07.1 Occipital stroke I63.9 Altered mental status R41.82 Altered mental status type: unspecified UTI (urinary tract infection), bacterial N39.0; A49.9 Diabetes E11.69 Diabetes mellitus type: type 2 Diabetes mellitus shelter insulin use: unspecified shelter insulin use status Diabetes mellitus complication status: with other specified complication Pneumomediastinum J98.2 Atrial fibrillation with RVR I48.91 DIC (disseminated intravascular coagulation) D65 Renal failure, acute N17.9 Suspected pulmonary embolism R09.89 Acute ischemic multifocal multiple vascular territories stroke I63.89 Time Spent (min) 45
[2020-06-09] MEDS: LORazepam 2 mg/mL INJ 1 mL 0.5 MG IVP ×2 (14:52→20:15)
[2020-06-09 16:55] LABS: Glucose Point of Care 410 mg/dL (70-110)
[2020-06-09 17:19] LABS: Partial Thromboplastin Time 29.1 SECONDS (23.9-36.7)
[2020-06-09] MEDS: acetaminophen 325 mg Tablet 650 MG PO (20:14)
[2020-06-09] MEDS: budesonide 0.5 mg/2 mL Neb INHALATION (20:27)
[2020-06-09] MEDS: insulin glargine 100 units/1 mL 20 UNIT SUBCUT (22:33)
[2020-06-09 22:54] LABS: Partial Thromboplastin Time 61.6 SECONDS (23.9-36.7)
[2020-06-10] VITALS (64 sets, daily range): BP systolic 40–151; BP diastolic 23–80; PULSE 0–142; RESP 0–38; TEMP 37.3; O2SAT 71–95
[2020-06-10] MEDS: ipratropium-albuterol 3 mL Neb INHALATION ×2 (02:18→08:11)
[2020-06-10 04:04] LABS: Basophils # 0.1 10^3/uL (0.0-0.1); Basophils % 0.4 %; Hematocrit 38.8 % (37.0-47.0); Hemoglobin 12.5 g/dL (11.5-15.3); Lymphocytes # 1.3 10^3/uL (0.8-4.8); Lymphocytes % 4.5 %; Mean Corpuscular HGB Conc 32.2 g/dL (30.0-36.0); Mean Corpuscular Hemoglobin 29.1 pg (28.0-34.0); Mean Corpuscular Volume 90.4 fL (81-99); Monocytes # 2.3 10^3/uL (0.2-0.9); Monocytes % 8.1 %; Neutrophils # 23.31 10^3/uL (1.8-7.7); Neutrophils % 81.3 %; Nucleated Red Blood Cells # 1.4 /100WBC; Platelet Count 218 10^3/cmm (130-400); Red Blood Count 4.29 10^6/uL (4.1-5.3); Red Cell Distribution Width 14.6 % (12.1-15.1); White Blood Count 28.7 10^3/uL (4.0-10.0)
[2020-06-10 04:53] LABS: Alanine Aminotransferase 27 U/L (0-33); Albumin Level 2.2 g/dL (3.5-5.2); Alkaline Phosphatase 126 IU/L (35-105); Anion Gap 17.1 (5-19); Aspartate Amino Transferase 51 U/L (0-32); Calcium 9.3 mg/dL (8.5-10.5); Carbon Dioxide 17 mmol/L (22-29); Chloride 108 mmol/L (98-107); Globulin 2.8 g/dL (1.3-4.6); Glucose 369 mg/dL (65-115); Potassium 4.1 mmol/L (3.5-5.1); Sodium 138 mmol/L (136-145); Total Bilirubin 0.6 mg/dL (0.15-1.2)
[2020-06-10] MEDS: insulin glargine 100 units/1 mL 20 UNIT SUBCUT (04:59)
[2020-06-10 05:01] LABS: Slide Review Slide Review Perform
[2020-06-10 05:08] LABS: Osmolality Calculated 345 mOsm/kg (285-295)
[2020-06-10 05:11] LABS: Blood Urea Nitrogen 137 mg/dL (8-23)
[2020-06-10] MEDS: heparin drip 25,000 UNIT/500 ML PREMIX 22 UNIT IV (05:33)
[2020-06-10 05:44] LABS: ABG PCO2 33.4 mmHg (35-45); ABG PH Result 7.29 (7.35-7.45); Arterial Blood Gas Hematocrit 40.1 % (37-47); Base Excess ABG -9.8 mmol/L (-2.0-2.0); Blood Gas Allen Test Pos; Blood Gas Sample Site Radial, right; Blood Gas Sample Type Arterial; Blood Gas Tidal Volume 0.45; HCO3 ABG 15.9 mmol/L (22-26); Oxygen Device VENT; PO2 ABG 85.1 mmHg (80.0-100.0)
[2020-06-10 05:54] LABS: Partial Thromboplastin Time 67.9 SECONDS (23.9-36.7)
[2020-06-10] MEDS: budesonide 0.5 mg/2 mL Neb INHALATION (08:11)
[2020-06-10] MEDS: LORazepam 2 mg/mL INJ 1 mL 0.5 MG IVP (08:37)
[2020-06-10] MEDS: aspirin 325 mg Tablet PO (08:37)
[2020-06-10] MEDS: metoprolol tartrate 25 mg Tablet PO (08:37)
[2020-06-10] MEDS: dexamethasone 4 mg/mL INJ 6 MG IV (08:38)
[2020-06-10] MEDS: famotidine 20 mg/2 mL INJ IVP (08:45)
--- NOTE | 2020-06-10 09:46 | PC.CHAP ---
Pastoral Care Encounter/Spiritual Assessment Type of Contact [] Declined motor installer visit [] Patient/Family/Request visit [] Outpatient visit [] Follow-up visit [] Physician referral [] Code/Alert [x] Routine visit [] Staff referral [] Actively dying [] Patient sleeping [] Family support [] [] Out of room [] Palliative care [] [] Receiving care in room [] Pre-surgical visit [] Trauma [] Long length of stay [x] ICU visit [x] Other: ventilator Relational/Emotional Strength [] Patient feels connected with others/family/visitors/staff [] Distress [] Loneliness/isolation [] Abandonment Spirituality of Patient [] Person of Makayla [] Attends Roman Catholic of their Makayla [] Believes in Prayer [] Reads Bible or Taoism materials [] There are Spiritual issues to be addressed Auto Suspension And Steering Mechanic Interventions [x] Prayer [] Active listening [] Non-anxious presence [] Spiritual/emotional support [] Crisis/trauma care [] Spiritual counseling [] Bereavement support [] Provided bereavement packet [] Provided Bible/devotional materials [] Provided toy/stuffed animal, coloring book to patient or family member [] Provided Communion [] Anointing/Howard [] Salvation [x] Completed spiritual assessment [] Other: Impact on Illness or Injury [] Angry [] Fearful [] Anxious [] Often cries [] Exhaustion [] Unable to work [] Unable to attend pentecostal [] Unable to walk/stand [] Unable to read [] Unable to drive [] Unable to eat/drink [] Unable to sleep [] Unable to be with family [] Patient intubated [] Other: Summary Time spent with patient
--- NOTE | 2020-06-10 11:39 | P.PN_ITS ---
Subjective Subjective: Interval history: Remains intubated and vented, FiO2 55%, UO 300mL overnight. Not neurologically responsive at this time. Bps soft. No other new issues overnight. ROS unobtainable Medications: Reviewed: Yes Vitals/I&O/Wt Last Vital Signs Temp 99.2 F 06/10/20 04:00 Pulse 99 06/10/20 10:45 Resp 33 H 06/10/20 11:08 BP 93/48 06/10/20 10:45 Pulse Ox 94 06/10/20 11:08 06/09/20 06/10/20 06/10/20 22:59 06:59 14:59 Intake Total 826.935 / 2355.477 1214.182 / 3569.659 Output Total 750 / 750 250 / 1000 Balance 76.935 / 1605.477 964.182 / 2569.659 Physical Exam Narrative: EXAM NARRATIVE: Constitutional: Sedated and vented HEENT: Wet mucosa, no jvp, non icteric Lungs: Bilaterally clear without discernible wheeze, rales in all lung zones CVS: S1 S2, no murmurs Abdo: Soft, BS ok Ext 4: Minimal edema, peripheral perfusion with no cyanosis Neurological: Sedated and vented Urinary Catheter Management^: Blake: Cath Placed During This Visit: yes, but has since been removed by the nurse Reason for Continuing Indwelling Catheter: Accurate Measurement of Urinary Output in Critically Ill Patients Urinary Catheter Date of Insertion: 06/06/20 Urinary Catheter Time of Insertion: 22:49 Date Urinary Catheter Removed: 06/06/20 Time Urinary Catheter Discontinued: 22:49 Data : 06/10/20 03:25 06/10/20 03:25 Micro: Microbiology 06/08/20 11:55 Sputum Culture - Final Sputum - Endotracheal Tube Aspirate 06/08/20 13:15 Urine Culture - Final Urine Catheterized 06/08/20 11:55 Blood Culture - Preliminary Blood NEGATIVE TO DATE 06/08/20 11:45 Blood Culture - Preliminary Blood NEGATIVE TO DATE 06/07/20 13:45 Gram Stain - Final Sputum - Endotracheal Wash Sputum Culture - Final A&P Additional A&P Information 1. Acute renal dysfunction Differential diagnosis for this includes sepsis and Covid related glomerulopathy with associated acute tubular dysfunction. Acute interstitial nephritis from antibiotic exposure is also possible as well as acute tubular dysfunction from vancomycin exposure. Urine chemistry consistent with intrarenal No recovery yet; no hard indication for dialysis today I agree with the team that dialysis will be futile; palliative are should now be involved with her care Avoid usual nephrotoxic agents Strict ins and outs 2. Sepsis, lactic acidosis CT A/P noted She is has completed antibiotic therapy Cultures noted, so far positive only for E. coli in the urine 3. Electrolytes non critical aberration noted oinc met acidosis and hyperNa; monitor for now 4. Covid pneumonitis Vent dependent respiratory failure, management per ICU team Status post dexamethasone and she has completed Abx therapy Her prognosis is obviously very guarded at this time, ongoing discussions with family members regarding goals of care. I would recommend palliative care at this time Thank you for consultation, as always it is a pleasure to follow these cases with you. Steven Tolbert MD Nephrology [phone] Patient seen and examined via telemedicine, with the assistance of the bedside RN > 25 min spent in evaluation and mgmt of patient Attestations Medical Necessity Statement*: eval for renal failure Coding Level of Care Code Acute Linoleum Layer Helper for Carmen Spicer
[2020-06-10 11:55] LABS: Partial Thromboplastin Time 103.4 SECONDS (23.9-36.7)
--- NOTE | 2020-06-10 12:53 | P.PN_ITS ---
Subjective Subjective: Interval history: No acute events overnight. Remains intubated and vented, FiO2 55%, UO 300mL overnight. Not neurologically responsive at this time. Bps soft. No other new issues overnight. ROS unobtainable Medications: Reviewed: Yes Vitals/I&O/Wt Last Vital Signs Temp 99.2 F 06/10/20 04:00 Pulse 99 06/10/20 10:45 Resp 33 H 06/10/20 11:08 BP 93/48 06/10/20 10:45 Pulse Ox 94 06/10/20 11:08 06/09/20 06/10/20 06/10/20 22:59 06:59 14:59 Intake Total 826.935 / 2355.477 1214.182 / 3569.659 Output Total 750 / 750 250 / 1000 Balance 76.935 / 1605.477 964.182 / 2569.659 Physical Exam Narrative: EXAM NARRATIVE: General: Intubated , sedated HEENT: PERRLA, pupils bilaterally equal and reactive Chest: Normal vesicular breath sounds, b/l extensive crackles present all over the upper and mid lung pedraza, equal good air entry bilaterally CVS: S1-S2 regular, no murmurs, no tachycardia, no gallops, no rubs Abdomen: Soft, nontender, no organomegaly, bowel sounds present Neuro: Sedated, pupil b/l equal and reactive. Urinary Catheter Management^: Blake: Cath Placed During This Visit: yes, but has since been removed by the nurse Reason for Continuing Indwelling Catheter: Accurate Measurement of Urinary Output in Critically Ill Patients Urinary Catheter Date of Insertion: 06/06/20 Urinary Catheter Time of Insertion: 22:49 Date Urinary Catheter Removed: 06/06/20 Time Urinary Catheter Discontinued: 22:49 Data : 06/10/20 03:25 06/10/20 03:25 Micro: Microbiology 06/08/20 11:55 Sputum Culture - Final Sputum - Endotracheal Tube Aspirate 06/08/20 13:15 Urine Culture - Final Urine Catheterized 06/08/20 11:55 Blood Culture - Preliminary Blood NEGATIVE TO DATE 06/08/20 11:45 Blood Culture - Preliminary Blood NEGATIVE TO DATE 06/07/20 13:45 Gram Stain - Final Sputum - Endotracheal Wash Sputum Culture - Final A&P Assessment and plan (1) COVID-19 virus infection: Status: Acute (2) Respiratory failure with hypoxia: As above. 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 Change aspirin to suppository. Other oral medications on hold for now. Status: Acute (6) DIC (disseminated intravascular coagulation): Status: Acute (7) Atrial fibrillation with RVR: Status: Acute (8) Pneumomediastinum: Status: Acute (9) Hypertension: Status: Acute (10) Diabetes: Status: Acute Qualifiers: Diabetes mellitus type: type 2 Diabetes mellitus halfway insulin use: unspecified halfway insulin use status Diabetes mellitus complication status: with other specified complication Qualified Code(s): E11.69 - Type 2 diabetes mellitus with other specified complication (11) Altered mental status: Continue treatment of underlying conditions. Sedation for continued mechanical ventilation. We are weaning down paralytics. Reassess CT head. Status: Acute Qualifiers: Altered mental status type: unspecified Qualified Code(s): R41.82 - Altered mental status, unspecified (12) Acute cystitis: Completed antibiotic course. Status: Acute Additional A&P Information Family discussions were done today with the granddaughter who was at bedside and son over the phone as he was too emotionally distraught to be at bedside during the conversation. During the family meeting it was discussed that unfortunately Ms. Haney is on mechanical ventilation because of ARDS, metabolic acidosis due to multiorgan dysfunction with acute kidney injury and new multiple strokes seen on the CT head post COVID-19 pneumonia and during this admission. It was also discussed that it is quite possible that patient does not have any meaningful mentation due to the stroke given agitated response of the sedation along with severe ARDS. Family stated that patient would have never wanted to be on ventilator for long or have poor functional capacity in her life and be a burden on the family and would have not have wanted to continue remain intubated especially when it is possible she does not have any meaningful baseline underlying mentation. Further goals of care were discussed regarding 2 options going further 1 to continue the current treatment second to make sure that patient remains comfortable with de-escalation of treatment and terminal extubation and letting nature takes its own course. Family decided to to go the route of comfort measures and terminal extubation. Plan to stop antibiotics, stop regular vitals, blood work, start patient on morphine and Ativan as needed alcohol along with succinylcholine for oral secretions after extubating. Attestations Medical Necessity Statement*: Hospital hospitalization due to ARDS, multiorgan dysfunction, multiple strokes in setting of COVID-19 pneumonia while goals of care have been transitioned to comfort measures only. Critical Care Time: GOC discussion, terminal extubation Critical Care Time (min): 80 Coding Level of Care Code Acute Facilities Maintenance Manager for [facility] Fwd Diagnoses COVID-19 virus infection U07.1 Respiratory failure with hypoxia J96.01 Chronicity: acute Acute ischemic multifocal multiple vascular territories stroke I63.89 JEFF (acute kidney injury) N17.9 Occipital stroke I63.9 DIC (disseminated intravascular coagulation) D65 Atrial fibrillation with RVR I48.91 Pneumomediastinum J98.2 Hypertension I10 Diabetes E11.69 Diabetes mellitus type: type 2 Diabetes mellitus halfway insulin use: unspecified halfway insulin use status Diabetes mellitus complication status: with other specified complication Altered mental status R41.82 Altered mental status type: unspecified Acute cystitis N30.00
--- NOTE | 2020-06-10 14:35 | PC.CHAP ---
Pastoral Care Encounter/Spiritual Assessment Type of Contact [] Declined hand blocker visit [x] Patient/Family/Request visit [] Outpatient visit [] Follow-up visit [] Physician referral [] Code/Alert [] Routine visit [] Staff referral [] Actively dying [] Patient sleeping [x] Family support [] [] Out of room [] Palliative care [] [] Receiving care in room [] Pre-surgical visit [] Trauma [] Long length of stay [x] ICU visit [] Other:Patient is actively dying Relational/Emotional Strength [] Patient feels connected with others/family/visitors/staff [] Distress [] Loneliness/isolation [] Abandonment Spirituality of Patient [x] Person of Makayla [] Attends Nondenominational of their [place]la [] Believes in Prayer [] Reads Bible or Buddhist materials [] There are Spiritual issues to be addressed Call Worker Interventions [x] Prayer [x] Active listening [x] Non-anxious presence [x] Spiritual/emotional support [] Crisis/trauma care [x] Spiritual counseling [x] Bereavement support [] Provided bereavement packet [] Provided Bible/devotional materials [] Provided toy/stuffed animal, coloring book to patient or family member [] Provided Communion [] Anointing/[place] [] Salvation [] Completed spiritual assessment [] Other: support to family. Impact on Illness or Injury [] Angry [] Fearful [] Anxious [] Often cries [] Exhaustion [] Unable to work [] Unable to attend nondenominational [] Unable to walk/stand [] Unable to read [] Unable to drive [] Unable to eat/drink [] Unable to sleep [] Unable to be with family [x] Patient intubated [] Other: Summary Call Worker called to support family of patient. Patients granddaughter who is the caregiver and has lived with patient for the past year is struggling with patients pending . she stated that patient raised her and they are very close. hand blocker offered words of comfort and prayed for patient and granddaughter. ICU will contact hand blocker upon patient's passing if family needs support. Time spent with patient 20 min
--- NOTE | 2020-06-10 16:43 | P.DES_ITS ---
Discharge Providers DDS Date of Admission: 05/30/20 02:47 Date Summary Completed: 06/10/20 Attending Provider at Admission: Luciano Driscoll MD Time of : 14:39 Attending Provider at Discharge: Kayden German MD Consults: Cardiology: r Nephrology: Dr. Barclay DS Diagnoses Hospital Diagnoses (1) COVID-19 virus infection: (2) Respiratory failure with hypoxia: Qualifiers: Chronicity: acute Qualified Code(s): J96.01 - Acute respiratory failure with hypoxia (3) Acute ischemic multifocal multiple vascular territories stroke: (4) JEFF (acute kidney injury): (5) Occipital stroke: (6) DIC (disseminated intravascular coagulation): (7) Atrial fibrillation with RVR: (8) Pneumomediastinum: (9) Hypertension: (10) Diabetes: Qualifiers: Diabetes mellitus type: type 2 Diabetes mellitus long line teamster insulin use: unspecified correction insulin use status Diabetes mellitus complication status: with other specified complication Qualified Code(s): E11.69 - Type 2 diabetes mellitus with other specified complication (11) Altered mental status: Qualifiers: Altered mental status type: unspecified Qualified Code(s): R41.82 - Altered mental status, unspecified (12) Acute cystitis: Reason for Visit Reason for Visit: leg pain and anxiety Summary Date and Time of Date of : 06/10/20 Time of : 14:39 Summary Summary: Farnaz Beverly is a 75 year old female with PMH hypertension, diabetes, papo ropathy, arthritis with chronic back pain presented to ER with altered mental status. Chest x-ray showed mild interstitial edema with fluid overload. Head CT without contrast showed chronic left occipital infarct. 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 Widely patent carotid arteries. CT abdomen pelvis showed no acute intra-abdominal findings on 05/30/2020 however ill-defined opacities in the left lower lobe suspicious for atelectasis versus infection. Rib/pelvic x-ray showed no right hip fracture however right hip joint arthritis. Upon arrival in ED patient has a temperature of 102.2, UA suspicious for UTI and patient was started on Rocephin. Patient was confused since admission and wants to get out of bed. Baseline mental status was unclear at that time. Initially she did not require O2 supplementation.Over the course of her hospitalization she gradually started desaturating and requiring high flow oxygen and her urine culture grew E. coli sensitive to Zosyn and COVID-19 antigen positive. Other labs significant for procalcitonin 0.55 on admission, thrombocytopenia, worsening LFTs, elevated CRP and D-dimer. Patient admitted to hospital for treatment of COVID-19 pneumonia. She had a long hospitalization for over 11 days which was complicated by development of ARDS requiring mechanical ventilation, multiorgan dysfunction, JEFF, finding of new multiple stroke on CT head, DIC. Initially she was managed with antiviral treatment with remdesivir, steroids and IV antibiotics. Gas Plant Technician/pulmonology service was consulted along with nephrology services as well. Nephrology recommendation patient requiring dialysis which was withheld given family goals of care discussions. Further family Discussions were held on June 10. Family discussions were done with granddaughter at bedside and son over the phone who was unable to visit patient bedside because of being emotionally distraught.During the family meeting it was discussed that unfortunately Ms. Haney is on mechanical ventilation because of ARDS, metabolic acidosis due to multiorgan dysfunction with acute kidney injury and new multiple strokes seen on the CT head post COVID-19 pneumonia and during this admission. It was also discussed that it is quite possible that patient does not have any meaningful mentation due to the stroke given agitated response of the sedation along with severe ARDS. Family stated that patient would have never wanted to be on ventilator for long or have poor functional capacity in her life and be a burden on the family and would have not have wanted to continue remain intubated especially when it is possible she does not have any meaningful baseline underlying mentation. Further goals of care were discussed regarding 2 options going further 1 to continue the current treatment second to make sure that patient remains comfortable with de-escalation of treatment and terminal extubation and letting nature takes its own course. Family decided to to go the route of comfort measures and terminal extubation. Patient was terminally extubated on June 10 and comfortably on June 10 at 2:39 PM. Additional Data Confirmation of as documented by pronouncing clinician: no pulse Family: at bedside Additional persons at bedside: nursing staff Attending/PCP notified?: I am attending Was code activated?: No Autopsy requested?: No Advance directives?: No (Pt unable to answer) Hospice patient?: No Discharge Plan Discharge Patient Disposition: Condition: Stable Prescriptions: New oxycodone 10 mg tablet 10 mg PO Q4H PRN (Reason: Pain) Qty: 18 RF: 0 Eliquis 5 mg Tablet 2.5 mg PO BID@0900,2100 Qty: 30 RF: 0 aspirin 81 mg Tablet,Delayed Release (Dr/Ec) 81 mg PO DAILY Qty: 30 RF: 0 levofloxacin 750 mg tablet 750 mg PO DAILY 7 Days Qty: 7 RF: 0 Continued glyburide 5 mg tablet 5 mg PO BID RF: 0 metoprolol succinate 50 mg tablet extended release 24 hr 50 mg PO DAILY RF: 0 famotidine 20 mg tablet 20 mg PO BID RF: 0 metformin 1,000 mg tablet 1,000 mg PO BID RF: 0 gabapentin 300 mg capsule 300 mg PO TID RF: 0 Held amlodipine 5 mg tablet 5 mg PO BEDTIME RF: 0 Hold Instructions: Resume on 06/10/20. lisinopril 10 mg tablet 10 mg PO DAILY RF: 0 Hold Instructions: Resume on 06/08/20. hydrochlorothiazide 25 mg tablet 25 mg PO DAILY RF: 0 Hold Instructions: Resume on 06/06/20. Discontinued cephalexin 500 mg capsule 500 mg PO TID RF: 0 Discharge Orders: Discharge Order (Routine); Ordered 06/10/20 Ordered By: Kayden German Other Ambulatory Orders: DME: Oxygen (Order) Location: None Selected Ordered By: Curly Tenorio Referrals: Baudilio Jean MD [Referring] - 06/10/20 1:00 pm Discharge Diet: Diabetic Discharge Activity: As per PT/OT instructions Patient Instructions: Levofloxacin (By mouth), Apixaban (By mouth), Chronic Kidney Disease (GEN), Thrombocytopenia (GEN), Fall Prevention (GEN), Opioid Safety DS Attestations Time Spent in /Discharge Care*: greater than 30 min Quality - AMI: AMI present?: No Clinical Trial Participant: No Quality - Stroke: CVA present?: Yes Reason for No Antithrombin at DC: Contraindicated Quality - VTE: VTE present?: No Coding Level of Care Code Acute Lead Former for [facility] Fwd Diagnoses COVID-19 virus infection U07.1 Respiratory failure with hypoxia J96.01 Chronicity: acute Acute ischemic multifocal multiple vascular territories stroke I63.89 JEFF (acute kidney injury) N17.9 Occipital stroke I63.9 DIC (disseminated intravascular coagulation) D65 Atrial fibrillation with RVR I48.91 Pneumomediastinum J98.2 Hypertension I10 Diabetes E11.69 Diabetes mellitus type: type 2 Diabetes mellitus long line teamster insulin use: unspecified long line teamster insulin use status Diabetes mellitus complication status: with other specified complication Altered mental status R41.82 Altered mental status type: unspecified Acute cystitis N30.00
--- NOTE | 2020-06-10 17:13 | PC.NURSE ---
1250-Chris Mancia [facility], notified of planned terminal extubation. Gavino requested 15 minute delay for futher evaluation. 1303-Matt [facility], phoned. States pt not a candidate and to proceed with extubation. 1313-Pt extubated per order. Dr German in pt's doorway immediately prior to extubation with nurse and RT in pt's room. 1439-Pt peacefully . No agonal breathing. This nurse auscultated for 5 minutes. No heart beat noted. Romina Rodriguez RN auscultated for 5 minutes. No heart beat noted. Movie Theater Usher contacted Machine Learning Intern and Carolyn while nurse was with pt and granddaughter. 1540-Escorted granddaughter out of facility. 5398-[place] arrived quickly for pt. 1550-Blake and central line removed per order without difficulty. 1605-Pt transferred via gurney to home van. 1614-Contreras at [facility] notified that pt had . Stated pt's file closed out d/t ineligibility of donation d/t covid.
--- NOTE | 2020-06-10 19:38 | PC.NURSE ---
Pharmacy brought new Fentanyl bag to pt's room. Bag never spiked. Versed remaining 52 mls. All waste witnessed by Robert Mendoza RN upon change of shift.
[2020-06-12 12:30] LABS: Glucose Point of Care 394 mg/dL (70-110)
[2020-06-12 12:30] LABS: Glucose Point of Care 392 mg/dL (70-110)
== END 2020-06-10 14:39 | disposition expired | DRG 208 ==
LOC: ER 05-30 02:41 → MEDSURG 05-30 05:54 → ICU 06-06 07:50
PROVIDERS: Hospitalist; Internal Medicine; Internal Medicine Nephrology; Internal Medicine Pulmonary Disease; Admitting Provider Internal Medicine; Emergency Provider Emergency Medicine; Visit Provider Student in an Organized Health Care Education/Training Program
DX: U07.1 COVID-19 (principal); A41.9 Sepsis, unspecified organism; J12.82 Pneumonia due to coronavirus disease 2019; N17.0 Acute kidney failure with tubular necrosis; I63.211 Cerebral infarction due to unspecified occlusion or stenosis of right vertebral artery; J96.01 Acute respiratory failure with hypoxia; D65 Disseminated intravascular coagulation [defibrination syndrome]; J15.9 Unspecified bacterial pneumonia; N30.00 Acute cystitis without hematuria; F05 Delirium due to known physiological condition; J98.11 Atelectasis; G93.40 Encephalopathy, unspecified; I69.954 Hemiplegia and hemiparesis following unspecified cerebrovascular disease affecting left non-dominant side; I24.8 Other forms of acute ischemic heart disease; E87.2 Acidosis; E11.65 Type 2 diabetes mellitus with hyperglycemia; E11.40 Type 2 diabetes mellitus with diabetic neuropathy, unspecified; I10 Essential (primary) hypertension; M16.11 Unilateral primary osteoarthritis, right hip; G89.29 Other chronic pain; M54.9 Dorsalgia, unspecified; Z51.5 Encounter for palliative care; B96.20 Unspecified Escherichia coli [E. coli] as the cause of diseases classified elsewhere; I69.998 Other sequelae following unspecified cerebrovascular disease; H53.8 Other visual disturbances; T38.0X5A Adverse effect of glucocorticoids and synthetic analogues, initial encounter; Z66 Do not resuscitate; I48.91 Unspecified atrial fibrillation; J98.2 Interstitial emphysema
CPT/HCPCS: 36415; 36416; 36592; 36600; 51702; 70450; 70496; 70498; 71045; 71250; 73502; 74018; 74176; 74177; 76700; 80048; 80051; 80053; 80162; 80202; 81001; 82009; 82330; 82550; 82575; 82728; 82803; 82805; 82962; 83036; 83605; 83690; 83735; 83880; 84145; 84439; 84443; 84481; 84484; 84540; 84550; 85025; 85362; 85378; 85384; 85610; 85730; 85999; 86140; 87040; 87070; 87077; 87086; 87186; 87205; 87426; 93005; 93306; 93970; 94002; 94003; 94640; 94660; 94799; 96365; 96372; 96375; 96376; 97110; 97161; 97530; 99285; G0378; J0330; J0696; J0743; J1100; J1160; J1644; J1650; J1815 ×2; J1940; J2060; J2250; J2270; J2405; J2543; J2704; J3010; J3370; J3490; J7030; J7050; J7626; J8540; Q9967